=== PATIENT | female | born 1940 | race Caucasian/White ===

== ENCOUNTER 2019-07-07 08:10 | Outpatient (CLI) | payer MEDICARE, SELFPAY ==
[2019-07-07] MEDS: ZOLEDRONIC ACID 5 MG/100 ML 100 ML 300 MG IVPB (08:37)
== END 2019-07-07 08:11 | disposition home or self-care (01) ==
LOC: CHSTREATRM 08:13
PROVIDERS: PCP Internal Medicine; Visit Provider Internal Medicine
DX: M81.0 Age-related osteoporosis without current pathological fracture (principal)
CPT/HCPCS: 96365; J3489

== ENCOUNTER 2020-05-03 06:21 | Outpatient (CLI) | payer MEDICARE, SELFPAY ==
[2020-05-03 06:34] LABS: Add Urine Microscopic? YES; Appearance Urine Clear (Clear); Basophils Absolute Auto 0.03 K/mm3 (0.00-0.10); Basophils Percent Auto 0.5 % (0.0-1.0); Bilirubin Urine Negative (Negative); Blood Urine Negative (Negative); Color Urine Yellow (Yellow); Eosinophils Absolute Auto 0.08 K/mm3 (0.02-0.50); Eosinophils Percent Auto 1.4 % (1.0-6.0); Glucose Urine UA Negative (Negative); Hematocrit 40.9 % (35.0-42.0); Hemoglobin 13.3 g/dL (11.7-13.8); Immature Granulocyte Absolute 0.02 K/mm3 (0.00-0.00); Immature Granulocyte Percent A 0.4 % (0.0-0.0); Ketones Urine Trace (Negative); Leukocyte Esterase Ur Trace (Negative); Lymphocytes Absolute Auto 2.41 K/mm3 (1.10-4.50); Mean Corpuscular HGB Conc 32.5 g/dL (32.0-36.0); Mean Corpuscular Hemoglobin 32.1 pg (27.0-31.0); Mean Corpuscular Volume 98.8 fL (78.0-102.0); Mean Platelet Volume 9.9 fl (9.2-11.8); Monocytes Absolute Auto 0.44 K/mm3 (0.10-0.90); Monocytes Percent Auto 7.8 % (2.0-11.0); Neutrophils Absolute Auto 2.6 K/mm3 (1.7-7.2); Neutrophils Percent Auto 46.9 % (50.0-70.0); Nitrate Urine Negative (Negative); Platelet Count Result 197 K/mm3 (150-420); Protein Urine Negative (Negative); Red Blood Count 4.14 M/mm3 (4.20-5.40); Red Cell Distribution Width 12.6 % (11.6-14.4); Specific Grav Ur 1.025 (1.010-1.020); Urobilinogen Urine 0.2 mg/dL (0.2-1.0); White Blood Count 5.6 K/mm3 (4.8-10.8)
[2020-05-03 06:56] LABS: Bacteria Urine 1+ /hpf; Mucus Urine Moderate /lpf; RBC Urine 0-2 /hpf (0-2); Squamous Epithelial Cell Urine Few /hpf (Few)
[2020-05-03 07:47] LABS: Alanine Aminotransferase 19 U/L (14-59); Albumin Level 3.8 g/dL (3.4-5.0); Alkaline Phosphatase 56 U/L (46-116); Anion Gap 4 mmol/L (8-16); Aspartate Amino Transferase 15 U/L (15-37); Bilirubin,Total 0.3 mg/dL (0.00-1.00); Blood Urea Nitrogen 26 mg/dL (7-18); Calcium 9.6 mg/dL (8.5-10.1); Carbon Dioxide 34 mmol/L (21-32); Chloride 103 mmol/L (98-108); Cholesterol 200 mg/dL (0-200); Estimated Glomerular Filt Rate 52; Glucose 94 mg/dL (70-99); HDL Direct 100 mg/dL (40-60); LDL Cholesterol Calculated 88 mg/dL (<130); Osmolality Calculated 296 mOsm/kg (285-295); Potassium 3.8 mmol/L (3.5-5.1); Sodium 141 mmol/L (136-145); Thyroid Stimulating Hormone 1.63 uIU/mL (0.36-3.74); Total Protein 6.7 g/dL (6.4-8.2); Triglycerides 62 mg/dL (0-150)
== END 2020-05-03 06:22 | disposition home or self-care (01) ==
LOC: CHSLAB 06:25
PROVIDERS: PCP Internal Medicine; Visit Provider Internal Medicine
DX: E78.5 Hyperlipidemia, unspecified (principal); I10 Essential (primary) hypertension
CPT/HCPCS: 36415; 80053; 80061; 81001; 84443; 85025

== ENCOUNTER 2020-05-27 07:51 | Outpatient (CLI) | payer MEDICARE, SELFPAY ==
--- NOTE | ~2020-05-27 | MM_ITS ---
EXAMINATION: MM screening [facility] BI w em HISTORY: Screening TECHNIQUE: Craniocaudal and mediolateral oblique 3-D tomosynthesis images were obtained and synthetic 2-D images were generated. CAD analysis was submitted and interpreted. COMPARISON: Comparison to multiple prior studies sequentially, with oldest reviewed study dated 09/2012. BREAST PARENCHYMAL COMPOSITION: The breasts are heterogenously dense, which may obscure small masses. FINDINGS: Stable breast masses, previously characterized as benign by ultrasound. There is no evidenc e of suspicious mass, calcification, or architectural distortion to suggest malignancy in either [address]. There has been no suspicious interval change. IMPRESSION: 1. No mammographic evidence of malignancy. 2. Recommend routine screening mammography in one year. BI-RADS Category 2: Benign finding(s). Reviewed, dictated and finalized at location A. NTIFIC MANAGER
== END 2020-05-27 07:52 | disposition home or self-care (01) ==
LOC: CHSIMG 07:53
PROVIDERS: PCP Internal Medicine; Visit Provider Internal Medicine
DX: Z12.31 Encounter for screening mammogram for malignant neoplasm of breast (principal)
CPT/HCPCS: 77063; 77067

== ENCOUNTER → 2020-06-04 00:56 | Outpatient (CLI) | payer MEDICARE, SELFPAY ==
[2020-06-04 20:39] LABS: SARS-CoV-2 RNA PCR Negative
== END ==
PROVIDERS: PCP Internal Medicine; Visit Provider Internal Medicine Gastroenterology
DX: Z01.812 Encounter for preprocedural laboratory examination (principal); Z20.822 Contact with and (suspected) exposure to COVID-19
CPT/HCPCS: C9803; U0003; U0005

== ENCOUNTER 2020-06-08 00:20 | Day surgery (SDC) | payer MEDICARE, SELFPAY ==
[2020-05-19 10:24] VITALS: BMI 22.1
[2020-06-08 06:13] VITALS: BP 151/88; PULSE 92; RESP 18; TEMP 36.7; O2SAT 92
[2020-06-08] MEDS: LACTATED RINGERS 1,000 ML 150 ML IV CONT (06:32)
--- NOTE | 2020-06-08 06:46 | WPDANESEPPF ---
Anes - Initial Pre Proc Eval Procedure: Operation Date: 06/08/20 07:30 Proposed Procedures p Screening Colonoscopy - Davy Cuellar MD Date/Time: 06/08/20 06:46 Surgeon: Davy Cuellar MD Pre Op Diagnosis: Neoplasm Screening, Personal Hx Of Colon Polyps Patient Data Age: 79 Gender: F Height: 5 ft 7 in Weight: 63.2 kg Last Vital Signs Temp 36.7 C 06/08/20 06:13 Pulse 92 06/08/20 06:13 Resp 18 06/08/20 06:13 BP 151/88 H 06/08/20 06:13 Pulse Ox 92 06/08/20 06:13 Allergies Allergy/AdvReac Type Severity Reaction Status Date / Time No Known Allergies Allergy Verified 06/08/20 06:09 Home Medications Medication Instructions Recorded Confirmed Type amlodipine 2.5 mg PO DAILY 05/19/20 06/08/20 History lisinopril-hydrochlorothiazide 1 tablet PO DAILY 05/19/20 06/08/20 History simvastatin 20 mg PO DAILY 05/19/20 06/08/20 History Patient hx anesthesia problems: none Family hx anesthesia problems: none PMFSH Past Medical History Medical History (Updated 06/08/20 @ 06:47 by Dane Mehta MD) HTN (hypertension) Hyperlipidemia Surgical History Surgical History (Updated 06/08/20 @ 06:48 by Dane Mehta MD) History of cholecystectomy History of resection of liver Social History Social History Smoking status: Never smoker Alcohol intake: never Substance use: never Substance use type: does not use Living arrangements: alone Spiritual care concerns: No Anes - Eval Final PreProcedure Day of Procedure 06/08/20 06:46 Patient weight: normal Heart: regular rate and rhythm Lungs: clear to auscultation Airway: Mallampati scale class II Neurological: alert and oriented Last oral intake: >/= 8 hours ASA classification: II Emergent: no Anesthetic plan: proceed Anesthesia type and monitoring: general GIVS and standard monitoring Informed Consent: The patient's anesthetic plan and its attendant risks and benefits were discussed with the patient/family/POA. Questions were solicited and answers provided to the satisfaction of the patient/family/POA.
--- NOTE | 2020-06-08 07:49 | PM.HPGS ---
History of Present Illness History of Present Illness Consent: Risks, benefits, and alternatives have been discussed and questions answered. Patient agrees to proceed with procedure. Chief complaint: Neoplasm Screening, Personal Hx Of Colon Polyps Narrative: Viola Bazan is a 79 year old female here for screening colonoscopy, last one about 12 years ago. Review of Systems Constitutional: Constitutional: Denies headache(s) and Denies weakness Eyes: Eyes: Denies blurry vision ENT: Reports Normal hearing present, Denies headache(s) and Denies neck pain Cardiovascular: Cardiovascular: Denies chest pain and Denies dyspnea Respiratory: Respiratory: Denies dyspnea Gastrointestinal: Gastrointestinal: Reports no additional gastrointestinal complaints Genitourinary: Genitourinary: Denies dysuria Musculoskeletal: Musculoskeletal: Denies neck pain Integumentary/Breasts: Skin/Breast: Denies dry skin Neurologic: Reports Normal hearing present, Denies headache(s) and Denies weakness Psychiatric: Psychiatric: Denies anxiety Endocrine: Endocrine: Denies change in body appearance Hematologic/Lymphatic: Hematologic/Lymphatic: Denies easy bleeding Allergic/Immunologic: Allergic/Immunologic: Denies urticaria PMFSH Past Medical History Medical History (Updated 06/08/20 @ 07:50 by Davy Cuellar MD) Colon cancer screening HTN (hypertension) Hyperlipidemia Surgical History Surgical History (Updated 06/08/20 @ 06:48 by Dane Mehta MD) History of cholecystectomy History of resection of liver Social History Social History Smoking status: Never smoker Alcohol intake: never Substance use: never Substance use type: does not use Living arrangements: alone Spiritual care concerns: No Meds Home Medications and Allergies Home Medications Medication Instructions Recorded Confirmed Type amlodipine 2.5 mg PO DAILY 05/19/20 06/08/20 History lisinopril-hydrochlorothiazide 1 tablet PO DAILY 05/19/20 06/08/20 History simvastatin 20 mg PO DAILY 05/19/20 06/08/20 History Allergies Allergy/AdvReac Type Severity Reaction Status Date / Time No Known Allergies Allergy Verified 06/08/20 06:09 Vital Signs Vital Signs - 24 hr 06/08/20 06:13 Temperature 98.0 F Pulse Rate 92 Respiratory Rate 18 Blood Pressure 151/88 H Pulse Oximetry 92 Exam Const: General: comfortable and no acute distress HENMT: General nose exam: Normal nares present Eyes: General: appearance normal, both eyes and all related structures Neck: Neck: no JVD Resp: Auscultation: clear to auscultation bilaterally Cardio: Rate: regular rate Rhythm: regular rhythm GI: Inspection: non-distended GI Palp: Yes Soft to palpation Skin: General skin exam: normal color Neuro: General: gait normal Speech: normal speech Extrem: General: normal to inspection Psych: Mental Status: mental status grossly normal Assessment and Plan Assessment and plan (1) Colon cancer screening: Code(s): Z12.11 - Encounter for screening for malignant neoplasm of colon Status: Acute Assessment and Plan: will proceed with colonoscopy
[2020-06-08 08:23] VITALS: BP 93/45; PULSE 86; RESP 23; O2SAT 96
[2020-06-08 08:33] VITALS: BP 98/62; PULSE 78; RESP 21; O2SAT 98
[2020-06-08 08:43] VITALS: BP 119/72; PULSE 79; RESP 23; O2SAT 96
== END 2020-06-08 08:55 | disposition home or self-care (01) ==
PROVIDERS: PCP Internal Medicine; Visit Provider Internal Medicine Gastroenterology
PROC: 0DJD8ZZ Inspection of Lower Intestinal Tract, Via Natural or Artificial Opening Endoscopic (ICD-10-PCS; CPT 45378; principal; 2020-06-08 07:30)
DX: Z12.11 Encounter for screening for malignant neoplasm of colon (principal); K57.30 Diverticulosis of large intestine without perforation or abscess without bleeding; K64.8 Other hemorrhoids; I10 Essential (primary) hypertension; E78.5 Hyperlipidemia, unspecified
CPT/HCPCS: G0121; C9803; J2704; J7120; U0003; U0005

== ENCOUNTER 2020-07-07 08:16 | Outpatient (CLI) | payer MEDICARE, SELFPAY ==
[2020-07-07] MEDS: ZOLEDRONIC ACID 5 MG/100 ML 100 ML 400 MG IVPB (08:38)
--- NOTE | 2020-07-07 09:34 | PC.NURSE ---
Patient tolerated yearly IV Reclast infusion. Education on medication reviewed. No concerns voiced. Safe exit of hospital.
== END 2020-07-07 08:17 | disposition home or self-care (01) ==
PROVIDERS: PCP Internal Medicine; Visit Provider Internal Medicine
DX: M81.0 Age-related osteoporosis without current pathological fracture (principal)
CPT/HCPCS: 96365; J3489

== ENCOUNTER 2020-10-27 08:10 | Outpatient (CLI) | payer MEDICARE, SELFPAY ==
[2020-10-27 08:21] LABS: Basophils Absolute Auto 0.03 K/mm3 (0.00-0.10); Basophils Percent Auto 0.5 % (0.0-1.0); Eosinophils Absolute Auto 0.07 K/mm3 (0.02-0.50); Eosinophils Percent Auto 1.2 % (1.0-6.0); Hematocrit 45.5 % (35.0-42.0); Hemoglobin 14.9 g/dL (11.7-13.8); Immature Granulocyte Absolute 0.01 K/mm3 (0.00-0.00); Immature Granulocyte Percent A 0.2 % (0.0-0.0); Lymphocytes Absolute Auto 3.06 K/mm3 (1.10-4.50); Lymphocytes Percent Auto 50.9 % (18.0-42.0); Mean Corpuscular HGB Conc 32.7 g/dL (32.0-36.0); Mean Corpuscular Hemoglobin 31.6 pg (27.0-31.0); Mean Corpuscular Volume 96.4 fL (78.0-102.0); Mean Platelet Volume 9.8 fl (9.2-11.8); Monocytes Absolute Auto 0.41 K/mm3 (0.10-0.90); Monocytes Percent Auto 6.8 % (2.0-11.0); Neutrophils Absolute Auto 2.4 K/mm3 (1.7-7.2); Neutrophils Percent Auto 40.4 % (50.0-70.0); Platelet Count Result 204 K/mm3 (150-420); Red Blood Count 4.72 M/mm3 (4.20-5.40); Red Cell Distribution Width 12.5 % (11.6-14.4)
[2020-10-27 09:11] LABS: Alanine Aminotransferase 26 U/L (14-59); Albumin Level 3.8 g/dL (3.4-5.0); Alkaline Phosphatase 62 U/L (46-116); Anion Gap 8 mmol/L (8-16); Aspartate Amino Transferase 17 U/L (15-37); Bilirubin,Total 0.6 mg/dL (0.00-1.00); Blood Urea Nitrogen 20 mg/dL (7-18); Carbon Dioxide 32 mmol/L (21-32); Chloride 105 mmol/L (98-108); Cholesterol 183 mg/dL (0-200); Estimated Glomerular Filt Rate > 60; Glucose 103 mg/dL (70-99); HDL Direct 88 mg/dL (40-60); Osmolality Calculated 302 mOsm/kg (285-295); Potassium 4.1 mmol/L (3.5-5.1); Sodium 145 mmol/L (136-145); Total Protein 6.6 g/dL (6.4-8.2)
[2020-10-27 10:14] LABS: LDL Cholesterol Calculated 82 mg/dL (<130); Triglycerides 65 mg/dL (0-150)
== END 2020-10-27 08:11 | disposition home or self-care (01) ==
LOC: CHSLAB 08:12
PROVIDERS: PCP Internal Medicine; Visit Provider Internal Medicine
DX: E78.5 Hyperlipidemia, unspecified (principal); I10 Essential (primary) hypertension
CPT/HCPCS: 36415; 80053; 80061; 85025

== ENCOUNTER 2021-05-11 08:11 | Outpatient (CLI) | payer MEDICARE, SELFPAY ==
[2021-05-11 09:11] LABS: Alanine Aminotransferase 22 U/L (14-59); Albumin Level 3.6 g/dL (3.4-5.0); Alkaline Phosphatase 54 U/L (46-116); Anion Gap 6 mmol/L (8-16); Aspartate Amino Transferase 14 U/L (15-37); Bilirubin,Total 0.5 mg/dL (0.00-1.00); Blood Urea Nitrogen 23 mg/dL (7-18); Carbon Dioxide 34 mmol/L (21-32); Chloride 105 mmol/L (98-108); Cholesterol 184 mg/dL (0-200); Estimated Glomerular Filt Rate > 60; Glucose 94 mg/dL (70-99); HDL Direct 95 mg/dL (40-60); LDL Cholesterol Calculated 79 mg/dL (<130); Osmolality Calculated 303 mOsm/kg (285-295); Potassium 3.9 mmol/L (3.5-5.1); Sodium 145 mmol/L (136-145); Thyroid Stimulating Hormone 1.64 uIU/mL (0.36-3.74); Total Protein 6.4 g/dL (6.4-8.2); Triglycerides 52 mg/dL (0-150)
== END 2021-05-11 08:12 | disposition home or self-care (01) ==
LOC: CHSLAB 08:13
PROVIDERS: PCP Internal Medicine; Visit Provider Internal Medicine
DX: E78.5 Hyperlipidemia, unspecified (principal); I10 Essential (primary) hypertension
CPT/HCPCS: 36415; 80053; 80061; 84443

== ENCOUNTER 2021-05-30 13:03 | Outpatient (CLI) | payer MEDICARE, SELFPAY ==
--- NOTE | ~2021-05-30 | MM_ITS ---
EXAMINATION: MM screening [facility] BI w em HISTORY: Screening TECHNIQUE: Craniocaudal and mediolateral oblique 3-D tomosynthesis images were obtained and synthetic 2-D images were generated. CAD analysis was submitted and interpreted. COMPARISON: Comparison to multiple prior studies sequentially, with oldest reviewed study dated 09/2012. BREAST PARENCHYMAL COMPOSITION: The breasts are heterogenously dense, which may obscure small masses FINDINGS: The right breast is stable without evidence for malignancy. There is architectural distorti on in the upper central aspect of the left breast. There are benign calcifications bilaterally. IMPRESSION: 1. Developing architectural distortion of the left breast. 2. Additional mammographic views and possible breast ultrasound are recommended. BI-RADS Category 0: Incomplete: Needs additional imaging evaluation. Reviewed, dictated and finalized at location A. KLAYER IMPRESSION: 1. Developing architectural distortion of the left breast. 2. Additional mammographic views and possible breast ultrasound are recommended . BI-RADS Category 0: Incomplete: Needs additional imaging evaluation.
== END 2021-05-30 13:04 | disposition home or self-care (01) ==
LOC: CHSIMG 13:04
PROVIDERS: PCP Internal Medicine; Visit Provider Internal Medicine
DX: Z12.31 Encounter for screening mammogram for malignant neoplasm of breast (principal)
CPT/HCPCS: 77063; 77067

== ENCOUNTER 2021-06-05 09:42 | Outpatient (CLI) | payer MEDICARE, SELFPAY ==
--- NOTE | ~2021-06-05 | MMUS_ITS ---
EXAMINATION: MM diagnostic [facility] LT w em, US breast LT complete HISTORY: The breasts are heterogenously dense, which may obscure small masses TECHNIQUE: Additional 3-D tomosynthesis images of the left breast were performed and synthetic 2-D im ages were generated. CAD analysis was submitted and interpreted. High resolution Limited left breast ultrasound was performed. COMPARISON: Comparison to multiple prior studies sequentially, with oldest reviewed study dated 12/07. BREAST PARENCHYMAL COMPOSITION: Breast composed of scattered areas of fibroglandular density FINDINGS: MAMMOGRAPHIC FINDINGS: There is a persistent focal asymmetry centrally in the left breast on CC view. No suspicious calcific ations or architectural distortion. ULTRASOUND: Limited left breast ultrasound: There are multiple cysts of the left breast, largest at 12:00 measuri ng 9 x 7 x 4 mm, likely corresponding to the mammographic finding. No suspicious masses to suggest ma lignancy. IMPRESSION: 1. No evidence for malignancy in the left breast. Benign findings. 2. Routine yearly screening mammogram and regular clinical breast examination are recommended. BI-RADS Category 2: Benign finding(s). Reviewed, dictated and finalized at location A. ATTENDANT IMPRESSION: 1. No evidence for malignancy in the left breast. Benign findings. 2. Routine yearly screening mammogram and regular clinical breast examination a re recommended. BI-RADS Category 2: Benign finding(s).
== END 2021-06-05 09:43 | disposition home or self-care (01) ==
LOC: CHSIMG 09:43
PROVIDERS: PCP Internal Medicine; Visit Provider Internal Medicine
DX: R92.8 Other abnormal and inconclusive findings on diagnostic imaging of breast (principal)
CPT/HCPCS: 76641; 77061; 77065; G0279

== ENCOUNTER 2021-07-11 08:02 | Outpatient (CLI) | payer MEDICARE, SELFPAY ==
[2021-07-11] MEDS: ZOLEDRONIC ACID 5 MG/100 ML 100 ML 400 MG IVPB (08:25)
[2021-07-11 08:27] VITALS: BP 130/70; PULSE 72; RESP 14; TEMP 36.7; O2SAT 97; BMI 21.9
--- NOTE | 2021-07-11 08:45 | PC.NURSE ---
Patient here for yearly IV Reclast. Education on medication given. No concerns. IV Reclast administered. SEE MAR. Tolerated well. Safe exit of hospital.
== END 2021-07-11 08:03 | disposition home or self-care (01) ==
LOC: CHSTREATRM 08:04
PROVIDERS: PCP Internal Medicine; Visit Provider Internal Medicine
DX: M81.0 Age-related osteoporosis without current pathological fracture (principal)
CPT/HCPCS: 96374; J3489

== ENCOUNTER 2021-11-16 08:04 | Outpatient (CLI) | payer MEDICARE, SELFPAY ==
[2021-11-16 08:16] LABS: Add Urine Microscopic? NO; Appearance Urine Clear (Clear); Basophils Absolute Auto 0.03 K/mm3 (0.00-0.10); Basophils Percent Auto 0.6 % (0.0-1.0); Bilirubin Urine Negative (Negative); Blood Urine Negative (Negative); Color Urine Yellow (Yellow); Eosinophils Absolute Auto 0.07 K/mm3 (0.02-0.50); Eosinophils Percent Auto 1.3 % (1.0-6.0); Glucose Urine UA Negative (Negative); Hematocrit 43.2 % (35.0-42.0); Hemoglobin 14.2 g/dL (11.7-13.8); Immature Granulocyte Absolute 0.01 K/mm3 (0.00-0.00); Immature Granulocyte Percent A 0.2 % (0.0-0.0); Ketones Urine Negative (Negative); Leukocyte Esterase Ur Negative (Negative); Lymphocytes Absolute Auto 2.53 K/mm3 (1.10-4.50); Lymphocytes Percent Auto 48.7 % (18.0-42.0); Mean Corpuscular HGB Conc 32.9 g/dL (32.0-36.0); Mean Corpuscular Hemoglobin 32.1 pg (27.0-31.0); Mean Corpuscular Volume 97.5 fL (78.0-102.0); Mean Platelet Volume 10.2 fl (9.2-11.8); Monocytes Absolute Auto 0.45 K/mm3 (0.10-0.90); Monocytes Percent Auto 8.7 % (2.0-11.0); Neutrophils Absolute Auto 2.1 K/mm3 (1.7-7.2); Neutrophils Percent Auto 40.5 % (50.0-70.0); Nitrate Urine Negative (Negative); Platelet Count Result 194 K/mm3 (150-420); Protein Urine Negative (Negative); Red Blood Count 4.43 M/mm3 (4.20-5.40); Red Cell Distribution Width 12.6 % (11.6-14.4); Specific Grav Ur 1.015 (1.010-1.020); Urobilinogen Urine 0.2 mg/dL (0.2-1.0); White Blood Count 5.2 K/mm3 (4.8-10.8); pH Urine 6.5 (5.0-8.0)
[2021-11-16 08:45] LABS: Alanine Aminotransferase 21 U/L (14-59); Albumin Level 3.7 g/dL (3.4-5.0); Alkaline Phosphatase 56 U/L (46-116); Anion Gap 5 mmol/L (8-16); Aspartate Amino Transferase 14 U/L (15-37); Bilirubin,Total 0.5 mg/dL (0.00-1.00); Blood Urea Nitrogen 15 mg/dL (7-18); Calcium 9.1 mg/dL (8.5-10.1); Carbon Dioxide 32 mmol/L (21-32); Chloride 105 mmol/L (98-108); Cholesterol 166 mg/dL (0-200); Estimated Glomerular Filt Rate 59; Glucose 95 mg/dL (70-99); HDL Direct 85 mg/dL (40-60); LDL Cholesterol Calculated 68 mg/dL (<130); Osmolality Calculated 294 mOsm/kg (285-295); Potassium 4.1 mmol/L (3.5-5.1); Sodium 142 mmol/L (136-145); Total Protein 6.1 g/dL (6.4-8.2); Triglycerides 66 mg/dL (0-150)
== END 2021-11-16 08:05 | disposition home or self-care (01) ==
LOC: CHSLAB 08:05
PROVIDERS: PCP Internal Medicine; Visit Provider Internal Medicine
DX: E78.5 Hyperlipidemia, unspecified (principal); I10 Essential (primary) hypertension
CPT/HCPCS: 36415; 80053; 80061; 81003; 85025

== ENCOUNTER 2021-11-23 08:43 | Outpatient (CLI) | payer MEDICARE, SELFPAY ==
--- NOTE | ~2021-11-23 | XR_ITS ---
EXAMINATION: XR chest 2V DATE: 11/23/2021 09:48 INDICATION: COPD, shortness of breath TECHNIQUE: PA and lateral views of the chest are obtained. COMPARISON: 05/28/2014 FINDINGS: There is a 1.5 cm nodule of the right upper lobe. The lungs are hyperinflated free of acute opacities. No pleural effusion or pneumothorax. The cardiomediastinal silhouette is normal. There is moderate thoracic spondylosis. Surgical clips are noted in the upper abdomen. IMPRESSION: 1. Right upper lobe nodule which could reflect primary bronchogenic carcinoma. Further evaluation wit h CT is recommended. Reviewed, dictated and finalized at location B. IMPRESSION: 1. Right upper lobe nodule which could reflect primary bronchogenic carcinoma. Further evaluation with CT is recommended.
== END 2021-11-23 08:44 | disposition home or self-care (01) ==
LOC: CHSCARD 08:44
PROVIDERS: PCP Internal Medicine; Visit Provider Internal Medicine
DX: J44.9 Chronic obstructive pulmonary disease, unspecified (principal); R06.00 Dyspnea, unspecified
CPT/HCPCS: 71046; 94060; 94726; 94729

== ENCOUNTER 2021-12-14 07:05 | Outpatient (CLI) | payer MEDICARE, SELFPAY ==
--- NOTE | ~2021-12-14 | CT_ITS ---
EXAMINATION: CT diagnostic chest w con DATE: 12/14/2021 07:46 INDICATION: Right upper lobe nodule TECHNIQUE: Computed tomography (CT) of the chest was performed without intravenous contrast. The dose -length product was 144.96 mGy-cm. Automated exposure control and iterative reconstruction technique were employed. COMPARISON: Chest x-ray dated 11/23/2021 FINDINGS: There is a low-density 1.4 x 1.1 cm nodule in the right upper lobe, image 63. This nodule m easures -1 Hounsfield units. Mild atherosclerosis of the aorta. No thoracic lymphadenopathy. Heart size normal. No significant ple ural or pericardial effusion. Upper abdomen is unremarkable. There are few scattered nodules bilatera lly measuring 3 mm or less. There is a cluster of nodules in the left lower lobe with a linear config uration making it difficult to evaluate for size. There are right lower lobe nodules measuring 10 and 9 mm respectively. These nodules are circumscribed and low density similar to the right upper lobe n odule. No pneumothorax. No endobronchial lesions. IMPRESSION: 1. Multiple bilateral pulmonary nodules, largest in the right upper lobe measuring 1.4 cm. Recommend follow-up with pet/CT examination or follow-up CT chest in 3 months Reviewed, dictated and finalized at location B. IMPRESSION: 1. Multiple bilateral pulmonary nodules, largest in the right upper lobe measur ing 1.4 cm. Recommend follow-up with pet/CT examination or follow-up CT chest i n 3 months
== END 2021-12-14 07:06 | disposition home or self-care (01) ==
LOC: CHSIMG 07:06
PROVIDERS: PCP Internal Medicine; Visit Provider Internal Medicine
DX: R91.1 Solitary pulmonary nodule (principal)
CPT/HCPCS: 71260; Q9967

== ENCOUNTER 2022-01-17 04:20 | Outpatient (CLI) | payer MEDICARE, SELFPAY ==
[2022-01-11 11:12] VITALS: BMI 21.9
--- NOTE | 2022-01-11 11:13 | PC.NURSE ---
Pre Radiology instructions Report to the Outpatient Waiting Room, entrance under the green pavilion located off [facility], at time _0900_ on date _[id number]_. Procedure Time: _1100_. YOU MAY BE MONITORED AT HOSPITAL FOR UP TO 4 HOURS AFTER YOUR PROCEDURE. One visitor will be allowed to accompany the patient into the hospital. The visitor will be instructed to remain with patient at all times or leave the building due to restrictions. We will allow the visitor to come back to the postoperative area when patient is ready. NO children visitors allowed at this time. You and your visitor will be asked to self-screen and do not enter if you have any COVID symptoms. A mask is required within the hospital. Patients are to have no food or drink 6 hours prior to procedure time Driving will be restricted after the procedure, you must have a person to drive you home. Labs will be drawn in preop area and once reviewed, you will be taken to radiology area for procedure. When the procedure is completed, you will be taken to outpatient where you will be monitored for several hours. You may have one visitor in this area. Other than holding anti-coagulants, patient may take other medication(s) as scheduled. Prior to your appointment date patients are instructed to hold anti-coagulants after discussing with ordering provider to stop. If unable to discontinue anti-coagulants please notify radiologist. No aspirin or warfarin (Coumadin) for 7 days prior to the procedure. No clopidogrel (Plavix), ticagrelor (Brilinta), prasugrel (Effient) or dabigatran (Pradaxa) for 5 days prior to the procedure. No rivaroxaban (Xarelto), apixaban (Eliquis), dipyridamole (Aggrenox or Persantine) or cilostazol (Pletal) for 2 days prior to the procedure. Medications to discontinue per physician: Aspirin Date to take last dose: __stopped on [id number] Please leave all valuables, including medications, at home the day of procedure. The hospital will not accept responsibility for valuables. Wear comfortable, loose fitting clothing. Follow any additional instructions given to you from ordering provider. Telephone instructions given to _Patient____and asked if any additional questions and then verbalized understanding. Patient advised to call scheduling provider office or registration scheduling [phone] if any additional questions.
[2022-01-17] VITALS (8 sets, daily range): BP systolic 111–148; BP diastolic 58–75; PULSE 58–73; RESP 15–20; TEMP 36.6; O2SAT 95–100
--- NOTE | ~2022-01-17 | XR_ITS ---
EXAMINATION: XR chest 1V portable DATE: 01/17/2022 12:56 INDICATION: Right lung nodule status post percutaneous biopsy. TECHNIQUE: A single frontal view of the chest was obtained. COMPARISON: Chest single view at 11:56 AM FINDINGS: There are nodules in right upper lobe and right lower lobe. A calcified right lung nodule i s consistent with old granulomatous disease. There is mild atelectasis in right lower lung zone. No p leural effusion or pneumothorax. Cardiomegaly is noted. There are surgical clips in the abdomen. IMPRESSION: 1. Right lung nodules suspicious for metastatic disease. 2. Cardiomegaly. Reviewed, dictated and finalized at location A.
--- NOTE | ~2022-01-17 | XR_ITS ---
EXAMINATION: XR chest 1V DATE: 01/17/2022 11:58 INDICATION: Right lung nodule status post percutaneous biopsy. TECHNIQUE: A single frontal view of the chest was obtained. COMPARISON: Chest 2 views 11/15/2021, chest CT 12/14/2021 FINDINGS: There are nodules in right upper lobe and right lower lobe. A calcified right lung nodule i s consistent with old granulomatous disease. No pleural effusion or pneumothorax. Cardiomegaly is not ed. There are surgical clips in the abdomen. IMPRESSION: 1. Right lung nodules suspicious for metastatic disease. 2. Cardiomegaly. Reviewed, dictated and finalized at location A.
--- NOTE | ~2022-01-17 | XR_ITS ---
EXAMINATION: XR chest 1V portable DATE: 01/17/2022 14:53 INDICATION: Right lung nodule status post percutaneous biopsy. TECHNIQUE: A single frontal view of the chest was obtained. COMPARISON: Chest single view at 12:53 PM FINDINGS: There are nodules in right upper lobe and right lower lobe. Calcified bilateral lung nodule s are consistent with old granulomatous disease. No pleural effusion or pneumothorax. Cardiomegaly is noted. IMPRESSION: 1. Right lung nodules suspicious for metastatic disease. 2. Cardiomegaly. Reviewed, dictated and finalized at location A.
--- NOTE | ~2022-01-17 | CT_ITS ---
EXAMINATION: CT biopsy lung w/imaging DATE: 01/17/2022 11:55 INDICATION: Right lung nodule. TECHNIQUE: The procedure including the risks, benefits, and alternatives and possibility of chest tub e placement were discussed with the patient. Risks discussed included infection, hemorrhage, approxim ately 1/3 risk of pneumothorax, approximately 1/10 risk of pneumothorax severe enough to warrant ches t tube placement, and rarely . The patient understood the risks and agreed to proceed. The patie nt was placed supine. The skin overlying the right chest was prepped and draped in sterile fashion. Anesthetic was administered with 1% lidocaine subcutaneously. A 19 gauge outer needle was advanced under CT guidance to the lesion of interest. A 20 gauge core biopsy needle was then used to obtain 3 core biopsy specimens. The needle was removed and the entry site was cleaned and dressed. The mA was adjusted according to patient size. Iterative reconstruction technique was employed. The dose-length product was 146.31 mGy-cm. There were no immediate complications. FINDINGS: CT images demonstrate the outer needle tip in a 13 mm nodule in right upper lobe. IMPRESSION: 1. CT-guided core needle biopsy of of a 13 mm nodule in right lung upper lobe. Reviewed, dictated and finalized at location A.
[2022-01-17] MEDS: SODIUM CHLORIDE 0.9% IV 1,000 ML 30 ML IV CONT (09:40)
[2022-01-17 10:07] LABS: Platelet Count Result 216 k/mm3 (150-375)
[2022-01-17 10:17] LABS: Prothrombin Time 12.4 Seconds (11.1-14.7)
== END 2022-01-17 15:32 | disposition home or self-care (01) ==
PROVIDERS: PCP Internal Medicine; Referring Provider Internal Medicine Pulmonary Disease; Visit Provider Radiology Diagnostic Radiology
PROC: BB24ZZZ Computerized Tomography (CT Scan) of Bilateral Lungs (ICD-10-PCS; CPT 32408; principal; 2022-01-17 11:00)
DX: R91.8 Other nonspecific abnormal finding of lung field (principal); I51.7 Cardiomegaly
CPT/HCPCS: 32408; 36415; 71045; 85049; 85610; 88305; J7030

== ENCOUNTER 2022-03-08 07:29 | Outpatient (CLI) | payer MEDICARE, SELFPAY ==
--- NOTE | ~2022-03-08 | PE_ITS ---
EXAMINATION: PET skull to mid thigh DATE: 03/08/2022 09:34 INDICATION: Lung nodule TECHNIQUE: Blood glucose level was 90 mg/dL. 10.681 mCi of 18-fluorodeoxyglucose (18-FDG) was adminis tered i.v. Low dose computed tomography (CT) images were acquired from the base of the brain to the p roximal thighs for attenuation correction and anatomic localization. Positron emission tomography (PE T) images were acquired in the same distribution beginning 55 minutes after injection. Images includi ng fused PET/CT images were reconstructed in axial, coronal, and sagittal planes. Automated exposure control technique was employed. The dose-length product was 349.81mGy-cm. COMPARISON: Chest CT dated 12/14/2021 FINDINGS: Head/neck: There is symmetric increased activity in the oral cavity, palatine tonsils, parotid glands, submandi bular glands, laryngeal muscles and ocular muscles without CT correlate, likely physiologic. No patho logically enlarged cervical lymphadenopathy or suspicious foci of increased FDG uptake in the visuali zed head or neck. Chest: No FDG uptake associated with the previously biopsied 1.6 x 1.0 cm right upper lobe nodule which demo nstrated benign pathology consistent with lung alveolar tissue, negative for diagnostic abnormalitie s. Bronchial wall tissue with moderate chronic inflammation. Negative for malignancy. There is also no abnormal FDG uptake associated with several subcentimeter nodules along a band of discoid atelecta sis in the right middle lobe associated with additional small linear bands of atelectasis in the left lower lobe and lingula. Cardiomegaly. No pericardial or pleural effusion. Thoracic aorta is normal i n caliber. Mild FDG uptake with maximal SUV of 2.0 associated with a somewhat ill-defined linear band of soft tissue density in the deep lateral right breast which does not appear to be changed on CT wh en compared with earlier chest CT dated 09/07/2016. No pathologically enlarged for abnormal FDG avid t horacic lymph nodes.. Abdomen/pelvis/proximal thighs: Physiologic renal accumulation and excretion of FDG activity in the kidneys, bladder and along portio ns of ureters. There is mild left hydronephrosis as well as mild dilation of the right extrarenal pel vis. Cholecystectomy clips at the gallbladder fossa and postoperative change of prior resection of th e left hepatic lobe. Normal heterogeneous pattern of mild FDG uptake throughout the liver with no frantz rologic correlate or dominant FDG avid lesion. There are additional surgical clips situated between t he hilum of the normal spleen, the greater curvature of the stomach and the tail of the normal pancre as. Bilateral adrenal glands are normal. No evident FDG uptake associated with a 6.8 x 5.4 cm simple appearing left adnexal cyst. The uterus is not identified and has likely been surgically resected. Mi ld colonic diverticulosis without adjacent inflammatory change to suggest diverticulitis. Marked FDG uptake along the proximal colon with mild to moderate uptake scattered throughout the remainder of th e bowels, all without radiologic correlate, also likely physiologic. No other abnormal foci of increa sed FDG uptake or pathologically enlarged lymphadenopathy in the abdomen, pelvis or proximal thighs. Musculoskeletal: Severe cervical, thoracic and lumbar spondylosis. There is increased FDG uptake associated with sever e facet osteoarthritis on the left at C3-C4 and on the right at L4-L5. No suspicious lytic, blastic o r FDG avid bone lesions. Likely physiologic synovial uptake about the bilateral glenohumeral joints. 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 IMPRESSION: 1. No abnormal uptake associated with a 1.6 x 1.0 cm right upper lobe nodule with recent benign biops y. No other suspicious lung lesions identified. 2. Small focus of mild FD
[2022-03-08 07:56] LABS: Glucose Point of Care 90 mg/dl (65-105)
== END 2022-03-08 07:30 | disposition home or self-care (01) ==
PROVIDERS: PCP Internal Medicine; Visit Provider Internal Medicine Pulmonary Disease
DX: R91.8 Other nonspecific abnormal finding of lung field (principal)
CPT/HCPCS: 78815; A9552

== ENCOUNTER 2022-06-07 07:13 | Outpatient (CLI) | payer MEDICARE, SELFPAY ==
--- NOTE | ~2022-06-07 | MM_ITS ---
EXAMINATION: MM screening [facility] BI w em HISTORY: Screening mammogram TECHNIQUE: Craniocaudal and mediolateral oblique 3-D tomosynthesis images were obtained and synthetic 2-D images were generated. CAD analysis was submitted and interpreted. COMPARISON: June 05, 2021 diagnostic left mammogram and complete left breast ultrasound examinatio n May 30, 2021, May 27, 2020 bilateral screening mammogram examinations BREAST PARENCHYMAL COMPOSITION: The breasts are heterogeneously dense, which may obscure small masses . FINDINGS: There is no evidence of suspicious mass, calcification, or architectural distortion to sugg est malignancy in either breast. There has been no suspicious interval change. IMPRESSION: 1. No mammographic evidence of malignancy. 2. Recommend routine screening mammography in one year. BI-RADS Category 1: Negative Reviewed, dictated and finalized at location A. RVISOR INSTRUMENT MAINTENANCE
[2022-06-07 07:42] LABS: Basophils Absolute Auto 0.04 K/mm3 (0.00-0.10); Basophils Percent Auto 0.7 % (0.0-1.0); Eosinophils Percent Auto 1.7 % (1.0-6.0); Hematocrit 43.5 % (35.0-42.0); Hemoglobin 14.1 g/dL (11.7-13.8); Immature Granulocyte Absolute 0.01 K/mm3 (0.00-0.00); Immature Granulocyte Percent A 0.2 % (0.0-0.0); Lymphocytes Absolute Auto 2.85 K/mm3 (1.10-4.50); Lymphocytes Percent Auto 49.7 % (18.0-42.0); Mean Corpuscular HGB Conc 32.4 g/dL (32.0-36.0); Mean Corpuscular Hemoglobin 31.5 pg (27.0-31.0); Mean Corpuscular Volume 97.3 fL (78.0-102.0); Mean Platelet Volume 10.1 fl (9.2-11.8); Monocytes Percent Auto 8.7 % (2.0-11.0); Neutrophils Absolute Auto 2.2 K/mm3 (1.7-7.2); Platelet Count Result 227 K/mm3 (150-420); Red Blood Count 4.47 M/mm3 (4.20-5.40); Red Cell Distribution Width 13.1 % (11.6-14.4); White Blood Count 5.7 K/mm3 (4.8-10.8)
[2022-06-07 08:38] LABS: Alanine Aminotransferase 20 U/L (14-59); Albumin Level 3.8 g/dL (3.4-5.0); Alkaline Phosphatase 64 U/L (46-116); Anion Gap 7 mmol/L (8-16); Aspartate Amino Transferase 16 U/L (15-37); Bilirubin,Total 0.6 mg/dL (0.00-1.00); Blood Urea Nitrogen 18 mg/dL (7-18); Calcium 9.2 mg/dL (8.5-10.1); Carbon Dioxide 33 mmol/L (21-32); Chloride 104 mmol/L (98-108); Cholesterol 185 mg/dL (0-200); Estimated Glomerular Filt Rate > 60; Glucose 102 mg/dL (70-99); HDL Direct 96 mg/dL (40-60); LDL Cholesterol Calculated 79 mg/dL (<130); Osmolality Calculated 299 mOsm/kg (285-295); Potassium 3.8 mmol/L (3.5-5.1); Sodium 144 mmol/L (136-145); Total Protein 6.5 g/dL (6.4-8.2); Triglycerides 48 mg/dL (0-150)
== END 2022-06-07 07:14 | disposition home or self-care (01) ==
LOC: CHSLAB 07:14
PROVIDERS: PCP Internal Medicine; Visit Provider Internal Medicine
DX: Z12.31 Encounter for screening mammogram for malignant neoplasm of breast (principal); I10 Essential (primary) hypertension; E78.5 Hyperlipidemia, unspecified
CPT/HCPCS: 36415; 77063; 77067; 80053; 80061; 85025

== ENCOUNTER 2022-07-19 08:15 | Outpatient (CLI) | payer MEDICARE, SELFPAY ==
[2022-07-19 08:23] VITALS: BMI 21.5
[2022-07-19 08:30] VITALS: BP 150/70; PULSE 72; RESP 14; TEMP 36.6; O2SAT 98
[2022-07-19] MEDS: ZOLEDRONIC ACID 5 MG/100 ML 100 ML 400 MG IVPB (08:35)
--- NOTE | 2022-07-19 09:04 | PC.NURSE ---
Patient here for yearly IV Reclast infusion. Reports does very well with them. Education given. No concerns voiced. IV Venofer administered. SEE MAR. Tolerated well. Safe exit of hospital.
== END 2022-07-19 08:16 | disposition home or self-care (01) ==
PROVIDERS: PCP Internal Medicine; Visit Provider Internal Medicine
DX: M81.0 Age-related osteoporosis without current pathological fracture (principal)
CPT/HCPCS: 96374; J3489

== ENCOUNTER 2022-07-30 10:06 | Outpatient (CLI) | payer MEDICARE, SELFPAY ==
--- NOTE | ~2022-07-30 | XR_ITS ---
EXAMINATION:XR_CERV2-3V_CR DATE: 07/30/2022 10:50 INDICATION: Neck pain TECHNIQUE: AP, lateral, lateral swimmers and odontoid views of the cervical spine are provided. COMPARISON: None FINDINGS: Alignment is normal. The odontoid process is intact. No fracture is identified. The vertebr al body heights are maintained. There is severe loss of intervertebral disc space height at C4-5, C5- 6, and C6-7. There is severe facet and uncovertebral joint osteoarthritis at these levels. Prevertebr al soft tissues are normal. IMPRESSION: 1. Severe spondylosis of the mid and lower cervical spine without acute findings. Reviewed, dictated and finalized at location B. IMPRESSION: 1. Severe spondylosis of the mid and lower cervical spine without acute finding s.
[2022-07-30 10:42] LABS: Basophils Absolute Auto 0.04 K/mm3 (0.00-0.10); Basophils Percent Auto 0.7 % (0.0-1.0); Eosinophils Absolute Auto 0.08 K/mm3 (0.02-0.50); Eosinophils Percent Auto 1.3 % (1.0-6.0); Hematocrit 43.8 % (35.0-42.0); Hemoglobin 14.1 g/dL (11.7-13.8); Immature Granulocyte Absolute 0.02 K/mm3 (0.00-0.00); Immature Granulocyte Percent A 0.3 % (0.0-0.0); Lymphocytes Absolute Auto 2.24 K/mm3 (1.10-4.50); Lymphocytes Percent Auto 36.8 % (18.0-42.0); Mean Corpuscular HGB Conc 32.2 g/dL (32.0-36.0); Mean Corpuscular Volume 96.3 fL (78.0-102.0); Mean Platelet Volume 10.2 fl (9.2-11.8); Monocytes Absolute Auto 0.39 K/mm3 (0.10-0.90); Monocytes Percent Auto 6.4 % (2.0-11.0); Neutrophils Absolute Auto 3.3 K/mm3 (1.7-7.2); Neutrophils Percent Auto 54.5 % (50.0-70.0); Platelet Count Result 325 K/mm3 (150-420); Red Blood Count 4.55 M/mm3 (4.20-5.40); Red Cell Distribution Width 12.8 % (11.6-14.4); White Blood Count 6.1 K/mm3 (4.8-10.8)
[2022-07-30 11:18] LABS: SARS-CoV-2 RNA PCR Negative (Negative)
[2022-07-30 11:24] LABS: Alanine Aminotransferase 17 U/L (14-59); Albumin Level 3.5 g/dL (3.4-5.0); Alkaline Phosphatase 74 U/L (46-116); Anion Gap 5 mmol/L (8-16); Aspartate Amino Transferase 15 U/L (15-37); Bilirubin,Total 0.3 mg/dL (0.00-1.00); Blood Urea Nitrogen 17 mg/dL (7-18); CRP 0.8 mg/dL (0.0-0.9); Calcium 9.4 mg/dL (8.5-10.1); Carbon Dioxide 36 mmol/L (21-32); Chloride 104 mmol/L (98-108); Creatine Kinase 42 U/L (26-192); Estimated Glomerular Filt Rate > 60; Glucose 97 mg/dL (70-99); Osmolality Calculated 301 mOsm/kg (285-295); Potassium 4.3 mmol/L (3.5-5.1); Sodium 145 mmol/L (136-145); Total Protein 6.7 g/dL (6.4-8.2); Troponin I 8.4 ng/L (0.00-60.4)
== END 2022-07-30 10:07 | disposition home or self-care (01) ==
PROVIDERS: PCP Internal Medicine; Visit Provider Internal Medicine
DX: R55 Syncope and collapse (principal); M54.2 Cervicalgia; J06.9 Acute upper respiratory infection, unspecified; M43.02 Spondylolysis, cervical region; Z20.822 Contact with and (suspected) exposure to COVID-19
CPT/HCPCS: 36415; 72040; 80053; 82550; 82553; 84484; 85025; 86140; U0003; U0005

== ENCOUNTER 2022-07-31 14:17 | Outpatient (CLI) | payer MEDICARE, SELFPAY ==
--- NOTE | ~2022-07-31 | US_ITS ---
EXAMINATION: US carotid duplex BI DATE: 07/31/2022 14:43 INDICATION: Carotid atherosclerosis. Syncope. Neck pain. TECHNIQUE: Grayscale, color Doppler, and pulsed Doppler images of the cervical carotid arteries were obtained. The degree of vessel stenosis is placed in one of the following categories: normal, <50%, 5 0-69%, >=70% but less than near-occlusion, near-occlusion, or total occlusion. Note that percent sten osis relative to normal distal artery lumen diameter is indirectly measured from velocity measurement s as described by Sabas, et al. Radiology 2003; 229:340-346. COMPARISON: None. FINDINGS: RIGHT: The right common carotid artery (CCA) peak systolic velocity (PSV) is 86 cm/s. The right internal car otid artery (ICA) PSV is 96 cm/s. The right ICA end-diastolic velocity (EDV) is 31 cm/s. The right IC A/CCA PSV ratio is 1.1. Grayscale and color Doppler images yield an estimate of <50% diameter reducti on from plaque in the ICA. The external carotid artery (ECA) PSV is 63 cm/s. There is antegrade flow in the right vertebral artery. LEFT: The left CCA PSV is 68 cm/s. The left ICA PSV is 58 cm/s. The left ICA EDV is 15 cm/s. The left ICA/C CA PSV ratio is 0.9. Grayscale and color Doppler images yield an estimate of <50% diameter reduction from plaque in the ICA. The ECA PSV is 55 cm/s. There is antegrade flow in the left vertebral artery. IMPRESSION: 1. <50% stenosis in the right internal carotid artery. 2. <50% stenosis in the left internal carotid artery. Reviewed, dictated and finalized at location A.
== END 2022-07-31 14:18 | disposition home or self-care (01) ==
LOC: CHSIMG 14:18
PROVIDERS: PCP Internal Medicine; Visit Provider Internal Medicine
DX: R55 Syncope and collapse (principal); M54.2 Cervicalgia; J06.9 Acute upper respiratory infection, unspecified; I65.23 Occlusion and stenosis of bilateral carotid arteries
CPT/HCPCS: 93880

== ENCOUNTER 2022-08-06 07:47 | Outpatient (RCR) | payer MEDICARE, SELFPAY ==
--- NOTE | 2022-08-06 07:21 | PTOPEVAL1 ---
Assessment and note entered by Joel Melendez Evaluation Information Assessment Status Evaluation Diagnosis neck pain Onset 07/31/22 Subjective Information Pt. reports that she has had on/off neck pain on the left side for awhile. Pt. reports that her pain will come and go based upon what she does. She notes she can have pain increases with turning her head, looking up and while sitting in one position such as driving. She reports no problem sleeping at night. She states that she is retired . She reports that her goal is to decrease her pain in the neck with activity. Reported Pain Level Pain Score 2: Self Report Assessment PT Clinical Summary Pt. is an 81 year old female who enters the clinic due to neck pain. She presents with impaired c- spine mobility, impaired u.e. strength, impaired postural awareness, and pain. Continued skilled PT is indicated in order to improve these areas to allow the pt. to achieve imrpoved comfort with all IADL's. Plan of Care Interventions Electrical Stimulation,Hot Pack/Cold Pack,Manual Therapy,Mechanical Traction,Neuro Re-education, Patient/Caregiver Educati,Therapeutic Activities, Therapeutic Exercise,Self-Care/Home Management PT Services Indicated Yes Treatment Frequency and 3x/week x 12 visits Duration These treatments will address the objective and functional deficits as defined above. The patient will be advanced safely and appropriately in order for the patient to progress towards his/her prior level of function. Additional exercises will be introduced and as well as a comprehensive home exercise program upon discharge, if needed, ?to ensure carryover of functional gains achieved in the clinic. This treatment plan has been reviewed and agreement upon by the patient.
--- NOTE | 2022-08-27 07:58 | PTOPEVAL1 ---
Assessment and note entered by Joel Melendez Evaluation Information Assessment Status Progress Diagnosis neck pain Onset 07/31/22 Subjective Information Pt. reports that her pain is no longer constant. She does get pain in the evenings sometimes, but much less intense. She reports that she still notes stiffness with reaching overhead and is trying to be more aware of her posture. She states that stiffness with turning her head is still present, especially in the mornings. Reported Pain Level Pain Score 1: Self Report Assessment PT Clinical Summary Pt. has attended a total of 10 treatment sessions. In this time she has demonstrated improvements in subjective pain reports, cervical spine ROM and postural awareness. Continued skilled PT is indicated in order to continue to decrease pain and advance exercise for improved core stability. Plan of Care Interventions Electrical Stimulation,Hot Pack/Cold Pack,Manual Therapy,Therapeutic Activities,Therapeutic Exercise PT Services Indicated Yes Treatment Frequency and Continue with 2 remaining sessions on pt. POC Duration focusing on advancing core stabilization technqiues. These treatments will address the objective and functional deficits as defined above. The patient will be advanced safely and appropriately in order for the patient to progress towards his/her prior level of function. Additional exercises will be introduced and as well as a comprehensive home exercise program upon discharge, if needed, ?to ensure carryover of functional gains achieved in the clinic. This treatment plan has been reviewed and agreement upon by the patient.
--- NOTE | 2022-08-31 08:10 | PTOPDC ---
Assessment and note entered by Kailyn Cash DPT Evaluation Information Assessment Status Re-evaluation Diagnosis neck pain Onset 07/31/22 Subjective Information Viola reports she has very minimal pain today. She reports less stiffness in her arms with reaching, She reports she is at a point where she can manage symptoms with HEP. Reported Pain Level Pain Score 1: Self Report Assessment PT Clinical Summary Patient was seen for 12 visits of skilled PT. She made great progress and partially met her set goals. She demonstrates 75 deg of B cervical rotation, increased B UE strength and decreased pain. She is independent with HEP and is appropriate for DC at this time. Plan of Care PT Services Indicated No
== END 2022-08-31 10:57 | disposition home or self-care (01) ==
LOC: CHSPT 07:47
PROVIDERS: PCP Internal Medicine; Visit Provider Internal Medicine
DX: G90.09 Other idiopathic peripheral autonomic neuropathy (principal)
CPT/HCPCS: 97014; 97110; 97140; 97161; G0283

== ENCOUNTER 2022-09-28 09:46 | Outpatient (CLI) | payer MEDICARE, SELFPAY ==
--- NOTE | ~2022-09-28 | CT_ITS ---
CT Scan of the Chest without Contrast: Clinical Indication: Nonspecific abnormal finding of lung field Technique: Contiguous sections were acquired throughout the chest without intravenous contrast. Dose reduction technique was used on this scan by utilizing automated exposure control and iterative recon struction technique. The dose-length product (DLP) was 75.88 mGy-cm. COMPARISON: 12/14/2021 Findings: There is no evidence of any significant mediastinal, hilar or axillary lymphadenopathy. The mediastin al soft tissues appear normal. There is no evidence of pleural or pericardial effusion. 1.2 x 0.7 cm right upper lobe pulmonary nodule is similar to minimally decreased from prior exam (axi al image 65). Medial right lower lobe nodules measuring 9 mm (axial image 96), and 8 mm (axial image 99) in diameter are also essentially stable from prior exam. Small calcified granulomas are also pres ent. Right middle lobe scarring is present. Images through the upper abdomen reveal no abnormalities. Impression: Pulmonary nodules, as detailed above, stable from prior exam. Continued follow-up to document two-yea rs of stability advised. Reviewed, dictated and finalized at [facility]. Impression: Pulmonary nodules, as detailed above, stable from prior exam. Continued follow- up to document two-years of stability advised.
== END 2022-09-28 09:47 | disposition home or self-care (01) ==
PROVIDERS: PCP Internal Medicine; Visit Provider Internal Medicine Pulmonary Disease
DX: R91.8 Other nonspecific abnormal finding of lung field (principal)
CPT/HCPCS: 71250

== ENCOUNTER 2023-06-10 12:48 | Outpatient (CLI) | payer MEDICARE, SELFPAY ==
--- NOTE | ~2023-06-10 | DEXA_ITS ---
Bone Density Report Name: KETTY SALES Age: 82 Sex: Female Ethnicity: White Date of : 1940 Indication: postmenopausal; screening for osteoporosis; height loss; cancer; hysterectomy; Referring Provider: Quan Arriaza Study: Bone densitometry was performed. Exam Date: June 10, 2023 Accession number: [id number] Bone Density: Region BMD T-score Z-score Classification AP Spine(L1-L4) 0.895 -1.4 1.4 Osteopenia Femoral Neck (Left) 0.596 -2.3 0.2 Osteopenia Total Hip (Left) 0.761 -1.5 0.8 Osteopenia Femoral Neck (Right) 0.580 -2.4 0.0 Osteopenia Total Hip (Right) 0.737 -1.7 0.6 Osteopenia Femoral Neck Mean 0.588 -2.4 0.1 Osteopenia Total Hip Mean 0.749 -1.6 0.7 Osteopenia World Health Organization criteria for BMD impression classify patients as: Normal (T-score at or above -1.0), Osteopenia (T-score between -1.0 and -2.5), or Osteoporosis (T-score at or below -2.5). 10-year Fracture Risk(1): Major Osteoporotic Fracture 14% Hip Fracture 5.3% Reported Risk Factors: [place] (), Neck BMD=0.580, BMI=19.3 (1) FRAX(R) Version 3.08. Fracture probability calculated for an untreated patient. Fracture probability may be lower if the patient has received treatment. Clinical Information Provided by Patient: Has used the following medications: Vitamin D, Calcium, multi Has the following medical conditions: Cancer, Hysterectomy Patient maximum height was 67 Menopause Age: 49 No regular weight bearing exercise Does not regularly consume dairy products Onset of menses at age 11 Number of children 3 Impression: The patient has low bone mass, based on the Right Femoral Neck T-score. Discussion: BONE DENSITY IS LOW AT ONE OR MORE SKELETAL SITES. This patient's lowest T-score is low at one or more skeletal sites. It meets the World Health Organization's (WHO) criteria for ?low bone mass? (T-score between -1.0 and -2.5). The patient's 10-year risk of fracture as calculated by FRAX is less than the threshold where pharmacological therapy is recommended by the National Osteoporosis Foundation (NOF). However, all treatment decisions require clinical judgment and consideration of individual patient factors, including patient preferences, comorbidities, previous drug use, risk factors not captured in the FRAX model (e.g., frailty, falls, vitamin D deficiency, increased bone turnover, interval significant decline in bone density) and possible under or overestimation of fracture risk by FRAX. The patient should follow a healthful lifestyle (good nutrition with adequate calcium and vitamin D, and appropriate weight-bearing exercise). Follow-Up: Consider repeating this study in 2 to 3 years to reassess this patient's status, or sooner if there is some new clinical indicati
--- NOTE | ~2023-06-10 | MM_ITS ---
EXAMINATION: MM screening odilia BI w em HISTORY: Screening mammogram, family history of breast cancer in her daughter. TECHNIQUE: Craniocaudal and mediolateral oblique 3-D tomosynthesis images were obtained and synthetic 2-D images were generated. CAD analysis was submitted and interpreted. COMPARISON: 06/07/2022, 06/05/2021, 05/30/2021, 05/27/2020 BREAST PARENCHYMAL COMPOSITION: There are scattered areas of fibroglandular density. FINDINGS: No suspicious mass, calcification, or architectural distortion are identified in either amanda ast to suggest malignancy. There has been no suspicious interval change. IMPRESSION: 1. No mammographic evidence of malignancy. 2. Recommend routine screening mammography while the patient remains in good health. BI-RADS Category 1: Negative Reviewed, dictated and finalized at location A. SOCIAL WORK IMPRESSION: 1. No mammographic evidence of malignancy. 2. Recommend routine screening mammography while the patient remains in good he alth. BI-RADS Category 1: Negative
--- NOTE | 2023-06-10 13:29 | ECHO_ITS ---
Patient Info Name: Viola Bazan Age: 82 years : 1940 Gender: Female Ht: 65 in Wt: 140 lbs BSA: 1.71 m2 HR: 68 bpm BP: 177 / 96 mmHg Heart Rhythm: Sinus Arrhythmia Technical Quality: Good Exam Date: 06/10/2023 2:21 PM Exam Location: Echo Lab Patient Status: Outpatient Admit Date: 06/10/2023 Staff Ordering Physician: Quan Arriaza MD Metal Smelter: Salomon Moore RDCS Attending Provider: Quan Arriaza MD Exam Type: CA echo doppler color flow Study Info Indications - syncope Complete two-dimensional, color flow and Doppler transthoracic echocardiogram is performed. Summary 1. Complete two-dimensional, color flow and Doppler transthoracic echocardiogram is performed. 2. Left ventricular chamber dimension is normal. 3. Left ventricular systolic function is normal, estimated at 60-65%. 4. The left ventricular diastolic function is grade I diastolic dysfunction. 5. E/e' 9 is minimally elevated. 6. Left atrial chamber dimension is mildly enlarged. 7. There is mild aortic valve sclerosis. 8. There is mild aortic valve regurgitation. 9. There is trace mitral valve regurgitation. 10. There is mild tricuspid valve regurgitation. 11. No pulmonary hypertension, estimated pulmonary arterial systolic pressure is 34 mmHg. Left Ventricle E/e' 9 is minimally elevated. Left ventricular chamber dimension is normal. Left ventricular systolic function is normal, estimated at 60-65%. The left ventricular diastolic function is grade I diastolic dysfunction. Right Ventricle Right ventricular systolic function is normal and with normal TAPSE 2.6 cm. Right ventricular chamber dimension is normal. Left Atria Left atrial chamber dimension is mildly enlarged. Right Atria Right atrial chamber dimension is normal. Aortic Valve The aortic valve is trileaflet. There is mild aortic valve sclerosis. There is no aortic valve stenosis. There is mild aortic valve regurgitation. Pulmonic Valve There is no pulmonic regurgitation. Mitral Valve There is no mitral valve stenosis. There is trace mitral valve regurgitation. Tricuspid Valve There is mild tricuspid valve regurgitation. No pulmonary hypertension, estimated pulmonary arterial systolic pressure is 34 mmHg. Pericardium/Pleural There is no pericardial effusion. Inferior Vena Cava Normal inferior vena cava with >50% collapse upon inspiration consistent with normal right atrial pressure, 5 mmHg. Aorta The aortic root size at the sinus of Valsalva is normal. Left Ventricular Outflow Tract Name Value Normal LVOT 2D LVOT Diameter 2.2 cm LVOT Doppler LVOT Peak Velocity 97 cm/s LVOT Peak Gradient 4 mmHg LVOT Mean Gradient 2 mmHg LVOT VTI 23 cm LVOT VTI/AV VTI Ratio 0.8 LVOT Stroke Volume 85 ml Pulmonic Valve Name Value Normal RVOT Doppler
--- NOTE | 2023-07-12 12:21 | WPDHOLTEREM ---
Holter/Event Monitor Holter/Event Monitor Date of procedure: 06/10/23 Holter/Event Procedure: Event Monitor Indications: Palpitations Conclusion: 1. 30 day event monitor between 06/10/23-07/09/23. This is an event-triggered monitor only. There are 18 available transmissions for analysis. 2. Predominant rhythm is sinus rhythm. 3. There are intermittent episodes of premature supraventricular complexes. There are 3 episodes of atrial tachycardia, fastest at 170 bpm and longest lasting 10 seconds. 4. There are occasional premature ventricular complexes. There is 1 episode of ventricular tachycardia at 160 bpm lasting 10 beats on 06/28/23 at 16:16. 5. No significant pauses greater than 2 seconds. 6. Patient reports 1 episode of symptom of lightheadedness/dizziness which demonstrate sinus rhythm at 85 bpm with PAC's.
== END 2023-06-10 12:49 | disposition home or self-care (01) ==
LOC: CHSIMG 12:49
PROVIDERS: PCP Internal Medicine; Visit Provider Internal Medicine
DX: R55 Syncope and collapse (principal); Z78.0 Asymptomatic menopausal state; Z12.31 Encounter for screening mammogram for malignant neoplasm of breast; I08.3 Combined rheumatic disorders of mitral, aortic and tricuspid valves
CPT/HCPCS: 77063; 77067; 77080; 93270; 93306

== ENCOUNTER 2023-07-22 08:23 | Outpatient (CLI) | payer MEDICARE, SELFPAY ==
[2023-07-22] MEDS: ZOLEDRONIC ACID 5 MG/100 ML 100 ML 400 MG IVPB (08:40)
[2023-07-22 08:43] VITALS: BMI 21.5
[2023-07-22 08:44] VITALS: BP 155/76; PULSE 72; RESP 14; TEMP 36.4; O2SAT 97
--- NOTE | 2023-07-22 09:08 | PC.NURSE ---
Patient here for yearly IV Reclast. Education given. NO concerns voiced. Reports bone density test report no change, so Dr. Arriaza said just keep what we are doing. Infusion administered. SEE MAR. Tolerated well. Safe exit of hospital per self/amb.
== END 2023-07-22 09:10 | disposition home or self-care (01) ==
LOC: CHSTREATRM 08:26
PROVIDERS: PCP Internal Medicine; Visit Provider Internal Medicine
DX: M81.0 Age-related osteoporosis without current pathological fracture (principal)
CPT/HCPCS: 96374; J3489

== ENCOUNTER 2023-08-08 07:57 | Outpatient (CLI) | payer MEDICARE, SELFPAY ==
[2023-08-08 08:13] LABS: Basophils Absolute Auto 0.03 K/mm3 (0.00-0.10); Basophils Percent Auto 0.6 % (0.0-1.0); Eosinophils Absolute Auto 0.06 K/mm3 (0.02-0.50); Eosinophils Percent Auto 1.2 % (1.0-6.0); Hematocrit 43.4 % (35.0-42.0); Hemoglobin 13.8 g/dL (11.7-13.8); Immature Granulocyte Absolute 0.01 K/mm3 (0.00-0.00); Immature Granulocyte Percent A 0.2 % (0.0-0.0); Lymphocytes Absolute Auto 2.33 K/mm3 (1.10-4.50); Lymphocytes Percent Auto 47.9 % (18.0-42.0); Mean Corpuscular HGB Conc 31.8 g/dL (32-36); Mean Corpuscular Hemoglobin 31.4 pg (27.0-31.0); Mean Corpuscular Volume 98.9 fL (78.0-102.0); Monocytes Absolute Auto 0.41 K/mm3 (0.10-0.90); Monocytes Percent Auto 8.4 % (2.0-11.0); Neutrophils Absolute Auto 2.02 K/mm3 (1.70-7.20); Neutrophils Percent Auto 41.7 % (50.0-70.0); Platelet Count Result 189 K/mm3 (150-420); Red Blood Count 4.39 M/mm3 (4.20-5.40); Red Cell Distribution Width 12.6 % (11.6-14.4); White Blood Count 4.9 K/mm3 (4.8-10.8)
[2023-08-08 08:18] LABS: Appearance Urine Clear (Clear); Bilirubin Urine Negative (Negative); Blood Urine Negative (Negative); Color Urine Yellow (Yellow); Glucose Urine UA Negative (Negative); Ketones Urine Negative (Negative); Leukocyte Esterase Ur Trace (Negative); Nitrate Urine Negative (Negative); Protein Urine Negative (Negative)
[2023-08-08 08:21] LABS: Add Urine Microscopic? YES; Bacteria Urine 2+ /hpf; RBC Urine None seen /hpf (0-2); Squamous Epithelial Cell Urine Few /hpf (Few)
[2023-08-08 09:00] LABS: Alanine Aminotransferase 11 U/L (14-59); Albumin Level 3.6 g/dL (3.4-5.0); Alkaline Phosphatase 54 U/L (46-116); Anion Gap 2 mmol/L (4-12); Aspartate Amino Transferase 17 U/L (15-37); Bilirubin,Total 0.6 mg/dL (0.00-1.00); Blood Urea Nitrogen 24 mg/dL (7-18); Calcium 8.7 mg/dL (8.5-10.1); Carbon Dioxide 35 mmol/L (21-32); Chloride 107 mmol/L (98-108); Cholesterol 187 mg/dL (0-200); Estimated Glomerular Filt Rate > 60; Free T3 3.17 pg/mL (2.18-3.98); Free T4 Free Thyroxine 1.09 ng/dL (0.76-1.46); Glucose 91 mg/dL (70-99); HDL Direct 97 mg/dL (40-60); LDL Cholesterol Calculated 80 mg/dL (<130); Magnesium 2.3 mg/dL (1.8-2.4); NT Pro B Type Natriuretic Pept 270 pg/mL (0-450); Osmolality Calculated 302 mOsm/kg (285-295); Phosphorus 2.8 mg/dL (2.6-4.7); Potassium 3.9 mmol/L (3.5-5.1); Sodium 144 mmol/L (136-145); Thyroid Stimulating Hormone 1.25 uIU/mL (0.36-3.74); Total Protein 6.1 g/dL (6.4-8.2); Triglycerides 52 mg/dL (0-150)
== END 2023-08-08 07:58 | disposition home or self-care (01) ==
LOC: CHSLAB 07:59
PROVIDERS: PCP Internal Medicine; Visit Provider Internal Medicine
DX: E78.5 Hyperlipidemia, unspecified (principal); I10 Essential (primary) hypertension; R00.0 Tachycardia, unspecified; R55 Syncope and collapse; R06.00 Dyspnea, unspecified
CPT/HCPCS: 36415; 80053; 80061; 81001; 83735; 83880; 84100; 84439; 84443; 84481; 85025

== ENCOUNTER 2023-09-02 08:04 | Outpatient (CLI) | payer MEDICARE, SELFPAY ==
--- NOTE | 2023-09-02 08:10 | EST_ITS ---
Patient Info Name: Viola Bazan Age: 82 years : 1940 Gender: Female Ht: 66 in Wt: 141 lbs BSA: 1.73 m2 HR: 53 bpm BP: 124 / 80 mmHg Heart Rhythm: Bradycardia Technical Quality: Good Exam Date: 09/02/2023 9:41 AM Exam Location: Echo Lab Patient Status: Outpatient Admit Date: 09/02/2023 Staff Ordering Physician: Romulo Brink DO Attending Provider: Romulo Brink DO Exam Type: CA stress arnaldo w NM Study Info A regadenoson stress test was performed. History/Risk Factors Hypertension: Yes Dyslipidemia: Yes COPD: Not Treated History/Risk Factors PAT, PVT. Summary 1. 1. Negative lexiscan stress test for ischemic ST changes by ECG criteria. 2. 2. Stable hemodynamics throughout the test. 3. 3. Nuclear scan to follow and will be reported separately. Please correlate with it. Protocol: LEXISCAN Stress ECG Details Stage: REST Duration (min): 5 min : 10 sec HR (bpm): 56 SBP (mmHg): 124 DBP (mmHg): 80 Stage: REST Duration (min): 10 min : 40 sec HR (bpm): 63 SBP (mmHg): 124 DBP (mmHg): 80 Stage: STAGE 1 Duration (min): 0 min : 41 sec HR (bpm): 63 SBP (mmHg): 124 DBP (mmHg): 80 Stage: RECOVERY Duration (min): 0 min : 18 sec HR (bpm): 67 SBP (mmHg): 124 DBP (mmHg): 80 Stage: RECOVERY Duration (min): 1 min : 18 sec HR (bpm): 90 SBP (mmHg): 124 DBP (mmHg): 80 Stage: RECOVERY Duration (min): 2 min : 18 sec HR (bpm): 90 SBP (mmHg): 123 DBP (mmHg): 62 Stage: RECOVERY Duration (min): 3 min : 18 sec HR (bpm): 95 SBP (mmHg): 123 DBP (mmHg): 61 Stage: RECOVERY Duration (min): 4 min : 18 sec HR (bpm): 84 SBP (mmHg): 134 DBP (mmHg): 63 Stage: RECOVERY Duration (min): 4 min : 18 sec HR (bpm): 84 SBP (mmHg): 134 DBP (mmHg): 63 Rest HR: 63 bpm Peak HR: 97 bpm Rest Sys BP: 124 mmHg Peak Sys BP: 134 mmHg Max Pred HR: 137 bpm % Max Pred HR: 71 % Target HR: 116 bpm Max RPP: 12,998 bpm*mmHg Termination Reason: Completed Protocol Cardiac Symptoms: None Total Time: 0 min : 41 sec Rest Hernandez BP: 80 mmHg Peak Hernandez BP: 63 mmHg Total Dose: 0.4 mg Resting ECG Sinus bradycardia. Stress ECG No abnormal ST/T wave changes. Arrhythmias Occasional PVCs. Report Signatures
--- NOTE | 2023-09-02 13:16 | WPDCARIOSTRE ---
Nuclear Stress Test INDICATIONS Indications: Ventricular tachycardia PROCEDURE Procedure Performed: Myocardial Perf Spect-Multi Procedure: Patient underwent a lexiscan stress test and immediately was injected with 33.1 mCi of cardiolyte. Multiple tomographic images were obtained. There is a small mild apical perfusion defect with stress imaging. A separate resting images were obtained after patient was injected with 10.6 mCi of cardiolyte. Multiple tomographic images were obtained. There is a small mild apical perfusion defect with rest imaging. CONCLUSION Conclusion: 1. Myocardial perfusion imaging demonstrating a fixed small size apical perfusion defect suggestive of attenuation artifact. 2. No evidence of reversible ischemia. 3. Left ventriculogram demonstrates normal measured ejection fraction of 52% with no wall motion abnormalities. 4. TID score 1.12 is not elevated.
== END 2023-09-02 08:05 | disposition home or self-care (01) ==
LOC: CHSIMG 08:05
PROVIDERS: PCP Internal Medicine; Visit Provider Internal Medicine Cardiovascular Disease
DX: I47.29 Other ventricular tachycardia (principal)
CPT/HCPCS: 78452; 93017; A9502; J2785

== ENCOUNTER 2023-12-20 11:15 | Outpatient (CLI) | payer MEDICARE, SELFPAY ==
--- NOTE | ~2023-12-20 | XR_ITS ---
XR knee RT 3V 12/20/2023 11:36 Indication: Right knee pain Procedure: 3 views right knee Comparison: No prior studies for comparison. Findings: There is moderate patellofemoral compartment osteoarthritis. Small joint effusion. No fract ure or traumatic malalignment. Impression: 1: Moderate patellofemoral compartment osteoarthritis. Reviewed, dictated and finalized at location B. Impression: 1: Moderate patellofemoral compartment osteoarthritis.
== END 2023-12-20 11:16 | disposition home or self-care (01) ==
LOC: CHSIMG 11:16
PROVIDERS: PCP Internal Medicine; Visit Provider Internal Medicine
DX: M25.561 Pain in right knee (principal); M17.11 Unilateral primary osteoarthritis, right knee
CPT/HCPCS: 73562

== ENCOUNTER 2024-05-08 13:10 | Emergency (ER) | payer MEDICARE, SELFPAY ==
--- NOTE | ~2024-05-08 | XR_ITS ---
EXAMINATION: XR wrist RT 2V DATE: 05/08/2024 13:54 INDICATION: Distal right radius fracture status post reduction. TECHNIQUE: 2 views of right wrist were obtained. COMPARISON: Right wrist radiographs 05/08/2024 at 1:25 PM FINDINGS: There is a comminuted fractured of distal radius without involvement of the distal articula r surface. The main distal fracture fragment demonstrates impaction, 4 mm dorsal displacement, dorsal angulation, and 14 degrees radial angulation. There is 31 degrees dorsal tilt of the distal articula r surface. There is a transverse fracture of distal ulna. The distal fracture fragment demonstrates i mpaction. 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 IMPRESSION: 1. Comminuted fractured of distal radius with improvement in alignment. 2. Transverse fracture of distal ulna. Reviewed, dictated and finalized at location A. R CUTTER
--- NOTE | ~2024-05-08 | XR_ITS ---
HISTORY: fall, Rt. wrist pain/ deformity COMPARISON: None TECHNIQUE: 3 views of the left wrist were performed. FINDINGS: Comminuted and impacted fracture of the distal radius and ulna are identified, with overlap of the fr acture fragments. Dorsal dislocation is present. Diffuse bony demineralization is identified. Moderate soft tissue swelling and deformity is also noted. IMPRESSION: Comminuted, impacted fracture of the distal radius and ulna with dorsal dislocation of the distal fra cture fragments. Significant bony demineralization. Reviewed, dictated and finalized at location A. 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 Significant bony demineralization.
[2024-05-08 13:10] VITALS: BP 172/84; PULSE 84; RESP 16; TEMP 36.9; O2SAT 99
--- NOTE | 2024-05-08 13:25 | ED.UPPEXIN ---
HPI - Extremity Injury (Upper) General Chief Complaint: Extremity Injury, Upper Stated Complaint: right wrist injury/fall Time Seen by Provider: 05/08/24 13:21 Source: patient Mode of arrival: ambulatory Limitations: no limitations History of Present Illness HPI narrative: patient slipped on ice prior to arrival, complaining of right wrist pain, denies other injuries. Patient on baby aspirin Related Data Home Medications ?Medication ?Instructions ?Recorded ?Confirmed ?Last Taken ?Type amlodipine 2.5 mg tablet 2.5 mg PO DAILY 05/19/20 11/25/23 06/07/20 22:00 History lisinopril 20 1 tablet PO DAILY 05/19/20 11/25/23 06/07/20 07:00 History mg-hydrochlorothiazide 25 mg tablet simvastatin 20 mg tablet 20 mg PO DAILY 05/19/20 11/25/23 06/07/20 22:00 History ascorbic acid (vitamin C) 500 mg 500 mg PO DAILY 01/11/22 11/25/23 Unknown History tablet (Vitamin C) aspirin 81 mg tablet,delayed 81 mg PO DAILY 01/11/22 11/25/23 01/09/22 History release cholecalciferol (vitamin D3) 25 25 mcg PO DAILY 01/11/22 11/25/23 Unknown History mcg (1,000 unit) capsule (Vitamin D3) multivitamin 1 tablet PO DAILY 01/11/22 11/25/23 Unknown History omega-3 fatty acids 1,000 mg PO DAILY 01/11/22 11/25/23 Unknown History magnesium 200 mg tablet 200 mg PO DAILY 08/19/23 11/25/23 Unknown History Allergies Allergy/AdvReac Type Severity Reaction Status Date / Time No Known Allergies Allergy Verified 05/08/24 13:26 Review of Systems Review of Systems: All systems reviewed & are unremarkable except as noted in HPI and below PMFSH Past Medical History Medical History Colon cancer screening Hyperlipidemia HTN (hypertension) Surgical History Surgical History History of cholecystectomy History of resection of liver Social History Social History Smoking status: Never smoker Alcohol intake: never Substance use: never Substance use type: does not use Living arrangements: alone Occupation/Education: retired Gender identity (if verbalized by the patient): Female Spiritual care concerns: No Exam Narrative: General appearance: Well-developed, well-nourished Skin: Normal color Head: Normocephalic, nontraumatic Eyes: Clear conjunctiva ENT: Oropharynx normal, ears normal, nose normal Neck: Supple, nontender Chest and respiratory: Airway patent, no respiratory distress, no accessory muscle use Heart: Regular rate/rhythm Abdomen: Soft, nontender, no organomegaly, quiet bowel sounds Vascular: Normal peripheral pulses, normal capillary refill. Musculoskeletal: right wrist deformity knee, severe limited range of motion Neurologic: Alert and oriented ?3, [employer] is normal as tested, no gross motor deficit Course Consultations Consultation #1: DR CASTELLANOS, [facility] Date: 05/08/24 Time: 14:37 Vital Signs Vital signs: Vital Signs Temperature 36.9 C 05/08/24 13:10 Pulse Rate 84 05/08/24 13:10 Respiratory Rate 16 05/08/24 13:10 Blood Pressure 172/84 H 05/08/24 13:10 Pulse Oximetry 99 05/08/24 13:10 Oxygen Delivery Room Air 05/08/24 13:10 Temperature 36.9 C 05/08/24 13:10 Pulse Rate 74 05/08/24 14:20 Respiratory Rate 16 05/08/24 14:20 Blood Pressure 177/86 H 05/08/24 14:20 Pulse Oximetry 99 05/08/24 14:20 Oxygen Delivery Room Air 05/08/24 14:20 Procedures Orthopedic Fracture Reduction Fracture #1: Fracture Reduction date: 05/08/24 Fracture Reduction time: 13:51 Time Out Performed: Yes (15) Side: right Fracture Reduction Location: radius and ulna Analgesia: hematoma block Pre-Procedure Neuro Vascular Exam: normal Technique: direct manipulation and traction/counter-traction Post Reduction X-rays Demonstrate: acceptable reduction Post-reduction neuro exam: intact Post-reduction vascular exam: intact Splint Applied: Yes Patient Tolerated Procedure: well MDM - Extremity Injury (Upper) Imaging Data My impression: Impressions Wrist X-Ray 05/08/24 13:40 IMPRESSION: Comminuted, impacted fracture of the distal radius and ulna with dorsal dislocation of the distal fracture fragments. Significant bony demineralization. Wrist X-Ray 05/08/24 14:22 IMPRESSION: 1. Comminuted fractured of distal radius with improvement in alignment. 2. Transverse fracture of distal ulna. Radiologist's impression: Impressions Wrist X-Ray 05/08/24 13:40 IMPRESSION: Comminuted, impacted fracture of the distal radius and ulna with dorsal dislocation of the distal fracture fragments. Significant bony demineralization. Critical Care Time Critical Care Time Critical Care Time: No Discharge Plan Discharge Clinical Impression: Fracture dislocation of right wrist Patient Disposition: Acute Care Hospital Condition: Stable Additional Instructions: Transferred to [facility] Patient Language: Mauritanian Prescriptions: No Action magnesium 200 mg tablet 200 mg PO DAILY amlodipine 2.5 mg tablet 2.5 mg PO DAILY simvastatin 20 mg tablet 20 mg PO DAILY lisinopril-hydrochlorothiazide 20-25 mg tablet 1 tablet PO DAILY multivitamin Tablet 1 tablet PO DAILY aspirin [Aspir-81] 81 mg Tablet,Delayed Release (Dr/Ec) 81 mg PO DAILY ascorbic acid (vitamin C) [Vitamin C] 500 mg Tablet 500 mg PO DAILY cholecalciferol (vitamin D3) [Vitamin D3] 25 mcg (1,000 unit) Capsule 25 mcg PO DAILY Fish Oil Capsule 1,000 mg PO DAILY metoprolol succinate 25 mg tablet extended release 24 hr See Rx Instructions .ROUTE .COMPLEX Qty: 90 2RF Dose Instruction: TAKE 1 TABLET BY MOUTH DAILY Rx Instructions: TAKE 1 TABLET BY MOUTH DAILY Follow-up/Referrals: Quan Arriaza MD [Primary Care Provider] -
[2024-05-08] MEDS: LIDOCAINE 1% LOCAL INJ 10 ML VIAL INFILTRATE (13:29)
[2024-05-08 14:20] VITALS: BP 177/86; PULSE 74; RESP 16; O2SAT 99
--- NOTE | 2024-05-08 14:57 | PC.NURSE ---
[facility] CALLED PER DISPATCH TO [facility] REQUEST FOR TRANSFER
== END 2024-05-08 14:51 | disposition short-term general hospital (02) ==
PROVIDERS: Emergency Provider Emergency Medicine; PCP Internal Medicine
DX: S52.501A Unspecified fracture of the lower end of right radius, initial encounter for closed fracture (principal); S52.601A Unspecified fracture of lower end of right ulna, initial encounter for closed fracture; W00.0XXA Fall on same level due to ice and snow, initial encounter
CPT/HCPCS: 25605; 73100; 73110; 99285; J2003

== ENCOUNTER 2024-06-09 13:52 | Outpatient (RCR) | payer MEDICARE, SELFPAY ==
--- NOTE | 2024-06-10 09:55 | BUOTOPEVAL ---
Assessment and note entered by Leticia Doll, OT Evaluation Information Assessment Status Evaluation Diagnosis Closed fracture of R distal radius and ulna, routine healing, subsequent ICD-10 Condition Codes (OT) Joint stiffness of right hand M25.641,Pain in right wrist M25.531,Generalized muscle weakness M62.81 Onset 05/08/24 Reported Pain Level Pain Score 0: Self Report Assessment OT Clinical Summary The patient is an 83 year old female who was referred to outpatient OT due to closed fracture of right distal radius and ulna with routine healing subsequent encounter. The patient received surgery 05/18/24 where they placed plate and screws. The patient previously demonstrated WNL wrist AROM, no pain, WNL neonatal specialist/pinch strength, and no edema with patient able to perform all ADLs/ IADLs with independence. The patient now demonstrates severe dysfunction of R UE scoring 77 .3% on QuickDASH questionnaire at evaluation. She demonstrates minimal pain at rest but during AROM the patient's pain increases. She demonstrates significantly limited AROM and discomfort with digit flexion/extension reporting stiffness. Clothing Pattern Preparer and pinch were not assessed at this time due to healing time and focusing on edema and ROM at this time, to assess at a later date. The patient demonstrates the need for skilled OT to address AROM, edema/scar management, pain, and neonatal specialist/pinch at a later date. Plan of Care Interventions Therapeutic Exercise,Manual Therapy,Neuro Re- education,Therapeutic Activities,Sensory Integrative Techniques,Prosthetic Training, Ultrasound OT Services Indicated Yes Treatment Frequency and 2-3x/week for 10 visits. Duration These treatments will address the objective and functional deficits as defined above. The patient will be advanced safely and appropriately in order for the patient to progress towards his/her prior level of function. Additional exercises will be introduced and as well as a comprehensive home exercise program upon discharge, if needed, ?to ensure carryover of functional gains achieved in the clinic. This treatment plan has been reviewed and agreement upon by the patient.
--- NOTE | 2024-06-10 09:55 | OPREHPOC ---
Outpatient Therapy Plan of Care This is a Multidisciplinary Plan of Care that may contain components documented by all disciplines (PT, OT, and ST.) OT Problem 1 OT Problem #1 Knowledge Deficit OT Goal 1 Goal / Goal Update The patient will demonstrate 100% knowledge and return demonstration for UE HEP needed to regain independence. Target Visit 10 OT Problem 2 OT Problem #2 Impaired Range of Motion OT Goal 1 Goal / Goal Update The patient will demonstrate increased AROM of R wrist with wrist flexion at >45 degrees, wrist extension at >50 degrees, radial deviation >13 degrees, ulnar deviation >20 degrees, and supination >80 degrees in order to return wrist mobility for homemaking tasks. SOC: R wrist flexion: 28 degrees R wrist extension: 20 degrees Radial deviation: 10 degrees Ulnar deviation: 15 degrees Supination: 62 degrees Target Visit 10 OT Problem 3 OT Problem #3 Edema OT Goal 1 Goal / Goal Update The patient will demonstrate decreased edema of R UE measuring DPC as 19 cm and distal wrist at 15 cm in order to improve AROM and mobility of R wrist to avoid continued limitations for ADLs. SOC: R DPC: 19.5 cm L DPC: 19 cm R Distal wrist: 17 cm L Distal wrist: 14.5 cm Target Visit 10 OT Goal 2 Goal / Goal Update The patient will demonstrate <2/10 pain with AROM to perform ADLs with decreased discomfort and limitations. Target Visit 10 OT Goal 1 Goal / Goal Update The patient will demonstrate R material requirements worker strength and lateral pinch strength of WFL compared to L UE in order to decreased dropping items during daily activities. (TO INIATE AT LATER DATE TO ALLOW HEALING) Target Visit 20
--- NOTE | 2024-07-01 16:13 | OTOPPROGNS ---
Assessment and note entered by Leticia Doll, OT Evaluation Information Assessment Status Progress Diagnosis Closed fracture of R distal radius and ulna, routine healing, subsequent Assessment OT Clinical Summary The patient demonstrates significant progress in wrist AROM, edema management, HEP compliance and pain. She reports 2/10 pain during activity which has improved since SOC. She demonstrates significant increase in QuickDASH scores with good functional outcomes with therapy services. The patient continues to demonstrate deficits with AROM where patient is not WNL for wrist flexion/ extension and ulnar deviation, pain management, edema management and strength training once released from MD. The patient demonstrates good progress toward goals with reasonable expectation for improvement. Plan of Care Interventions Therapeutic Exercise,Manual Therapy,Neuro Re- education,Therapeutic Activities,Hot Pack/Cold Pack,Electrical Stimulation,Sensory Integrative Techniques,Self-Care/Home Management,Prosthetic Training,Ultrasound OT Services Indicated Yes Treatment Frequency and 2x/week for 10 visits. Duration These treatments will address the objective and functional deficits as defined above. The patient will be advanced safely and appropriately in order for the patient to progress towards his/her prior level of function. Additional exercises will be introduced and as well as a comprehensive home exercise program upon discharge, if needed, ?to ensure carryover of functional gains achieved in the clinic. This treatment plan has been reviewed and agreement upon by the patient.
--- NOTE | 2024-07-01 16:13 | OPREHPOC ---
Outpatient Therapy Plan of Care This is a Multidisciplinary Plan of Care that may contain components documented by all disciplines (PT, OT, and ST.) OT Problem 1 OT Problem #1 Knowledge Deficit OT Goal 1 Goal / Goal Update The patient will demonstrate 100% knowledge and return demonstration for UE HEP needed to regain independence. GOAL MET Target Visit 10 Progress Met OT Problem 2 OT Problem #2 Impaired Range of Motion OT Goal 1 Goal / Goal Update The patient will demonstrate increased AROM of R wrist with wrist flexion at >45 degrees, wrist extension at >50 degrees, radial deviation >13 degrees, ulnar deviation >20 degrees, and supination >80 degrees in order to return wrist mobility for homemaking tasks. SOC: R wrist flexion: 28 degrees R wrist extension: 20 degrees Radial deviation: 10 degrees Ulnar deviation: 15 degrees Supination: 62 degrees PN 07/01/2024: R wrist flexion: 30 degrees R wrist extension: 45 degrees Radial deviation: 19 degrees Ulnar deviation: 19 degrees Supination: 80 degrees Target Visit 10 Progress Partially Met OT Problem 3 OT Problem #3 Edema OT Goal 1 Goal / Goal Update The patient will demonstrate decreased edema of R UE measuring DPC as 19 cm and distal wrist at 15 cm in order to improve AROM and mobility of R wrist to avoid continued limitations for ADLs. GOAL PROGRESSING; CONTINUE 07/01/2024 SOC: R DPC: 19.5 cm L DPC: 19 cm R Distal wrist: 17 cm L Distal wrist: 14.5 cm PN 07/01/2024: R DPC: 19 cm L DPC: 19 cm R Distal wrist: 16.25 cm L Distal wrist: 14.5 cm Target Visit 10 Progress Partially Met OT Goal 2 Goal / Goal Update The patient will demonstrate <2/10 pain with AROM to perform ADLs with decreased discomfort and limitations. GOAL PROGRESSING; CONTINUE 07/01/2024 2/10 pain reported during ADLs Target Visit 10 OT Goal 1 Goal / Goal Update The patient will demonstrate R copy writer strength and lateral pinch strength of WFL compared to L UE in order to decreased dropping items during daily activities. (TO INIATE AT LATER DATE TO ALLOW HEALING) Target Visit 20
--- NOTE | 2024-07-27 08:45 | OTOPDC ---
Assessment and note entered by Leticia Doll, OT Evaluation Information Assessment Status Discharge Diagnosis Closed fracture of R distal radius and ulna, routine healing, subsequent ICD-10 Condition Codes (OT) Joint stiffness of right wrist M25.631 Reported Pain Level Pain Score 0: Self Report Assessment OT Clinical Summary The patient demonstrates good progress toward goals with increased and WNL AROM of R wrist, no pain during daily tasks, and WFL home visits nurse and pinch strength which have increased her functional independence with R UE. Although the patient demonstrates minimal weakness in home visits nurse and pinch strength, the patient is independent with theraputty HEP at this time and can carryover exercises at home. The patient demonstrates good understanding of HEP at this time and is discharged due to meeting goals and demonstrating no pain with daily tasks. The patient has made good progress toward goals and no longer requires skilled OT. Plan of Care OT Services Indicated No
--- NOTE | 2024-07-27 08:45 | OPREHPOC ---
Outpatient Therapy Plan of Care This is a Multidisciplinary Plan of Care that may contain components documented by all disciplines (PT, OT, and ST.) OT Problem 1 OT Problem #1 Knowledge Deficit OT Goal 1 Goal / Goal Update The patient will demonstrate 100% knowledge and return demonstration for UE HEP needed to regain independence. GOAL MET; DISCONTINUE Target Visit 10 Progress Met OT Problem 2 OT Problem #2 Impaired Range of Motion OT Goal 1 Goal / Goal Update The patient will demonstrate increased AROM of R wrist with wrist flexion at >45 degrees, wrist extension at >50 degrees, radial deviation >13 degrees, ulnar deviation >20 degrees, and supination >80 degrees in order to return wrist mobility for homemaking tasks. GOAL MET; DISCONTINUE 07/27/2024 SOC: R wrist flexion: 28 degrees R wrist extension: 20 degrees Radial deviation: 10 degrees Ulnar deviation: 15 degrees Supination: 62 degrees PN 07/01/2024: R wrist flexion: 30 degrees R wrist extension: 45 degrees Radial deviation: 19 degrees Ulnar deviation: 19 degrees Supination: 80 degrees Discharge: R wrist flexion: 41 degrees R wrist extension: 55 degrees R radial deviation: 20 degrees R ulnar deviation: 28 degrees R supination: 90 degrees Target Visit 10 Progress Partially Met OT Problem 3 OT Problem #3 Edema OT Goal 1 Goal / Goal Update The patient will demonstrate decreased edema of R UE measuring DPC as 19 cm and distal wrist at 15 cm in order to improve AROM and mobility of R wrist to avoid continued limitations for ADLs. GOAL PLATEAUED; DISCONTINUE 07/27/2024 SOC: R DPC: 19.5 cm L DPC: 19 cm R Distal wrist: 17 cm L Distal wrist: 14.5 cm PN 07/01/2024: R DPC: 19 cm L DPC: 19 cm R Distal wrist: 16.25 cm L Distal wrist: 14.5 cm Discharge: R DPC: 19 cm L DPC: 19 cm R Distal wrist: 16 cm L Distal wrist: 14.5 cm Target Visit 10 Progress Partially Met OT Goal 2 Goal / Goal Update The patient will demonstrate <2/10 pain with AROM to perform ADLs with decreased discomfort and limitations. GOAL MET; DISCONTINUE 07/27/2024 0/10 pain reported during ADLs Target Visit 10 OT Goal 1 Goal / Goal Update The patient will demonstrate R handstitching machine collar feller strength and lateral pinch strength of WFL compared to L UE in order to decreased dropping items during daily activities. GOAL PLATEAUED; PATIENT DISCHARGED WITH HEP R handstitching machine collar feller: 37 lbs L handstitching machine collar feller: 47 lbs R lateral pinch: 3 lbs L lateral pinch: 8 lbs Target Visit 20
== END 2024-07-27 14:36 | disposition home or self-care (01) ==
LOC: CHSOT 13:52
DX: S52.501D Unspecified fracture of the lower end of right radius, subsequent encounter for closed fracture with routine healing (principal); S52.601D Unspecified fracture of lower end of right ulna, subsequent encounter for closed fracture with routine healing
CPT/HCPCS: 97110; 97112; 97140; 97165; 97530

== ENCOUNTER 2024-06-12 14:48 | Outpatient (CLI) | payer MEDICARE, SELFPAY ==
--- NOTE | ~2024-06-12 | MM_ITS ---
EXAMINATION: MM screening odilia BI w em HISTORY: Screening TECHNIQUE: Craniocaudal and mediolateral oblique 3-D tomosynthesis images were obtained and synthetic 2-D images were generated. CAD analysis was submitted and interpreted. COMPARISON: Comparison to multiple prior studies sequentially, with oldest reviewed study dated 05/27. BREAST PARENCHYMAL COMPOSITION: Not dense: There are scattered areas of fibroglandular density. FINDINGS: There are developing asymmetries/masses in the upper central aspect of the left breast, mid dle-posterior depth. The right breast is stable without evidence for malignancy. IMPRESSION: 1. Developing left breast asymmetries/masses. 2. Additional mammographic views and possible breast ultrasound are recommended. BI-RADS Category 0: Incomplete: Needs additional imaging evaluation. Reviewed, dictated and finalized at location B. ERCIAL DRONE PILOT IMPRESSION: 1. Developing left breast asymmetries/masses. 2. Additional mammographic views and possible breast ultrasound are recommended . BI-RADS Category 0: Incomplete: Needs additional imaging evaluation.
--- OUTSIDE RECORDS SUMMARY | 2024-06-12 14:51 | XMS_ITS | Clinical Summary ---
Author Organization [facility] Address [facility] [place] [address] Care Team Providers Care Director Digital Sales Name Role Phone Unavailable Primary Care Provider Unavailabl e Social History Tobacco Use Types Packs/Day Years Used Date Smoking Tobacco: Never Assessed Comments Unknown Sex and Gender Information Value Date Recorded Sex Assigned at Not on file Legal Sex Female 7:20 PM CDT Gender Identity Not on file Sexual Orientation Not on file Last Filed Vital Signs Vital Sign Reading Time Taken Comments Blood Pressure 138/76 09/11/2016 10:01 AM CDT Pulse 79 09/11/2016 10:01 AM CDT Temperature - - Respiratory Rate - - Oxygen Saturation - - Inhaled Oxygen Concentration - - Weight 69.9 kg (154 lb) 09/11/2016 10:01 AM CDT Height 170.2 cm (5' 7 ) 09/11/2016 10:01 AM CDT Body Mass Index 24.12 09/11/2016 10:01 AM CDT Plan of Treatment Health Maintenance Due Date Last Done Comments DTaP, Tdap and Td Vaccines ( 1 - Tdap) 11/28/1958 Zoster Vaccines (1 of 2) 11/28/1989 Dexa Scan (General) 11/28/2004 Pneumococcal Vaccine: 65+ Years (2 of 2 - PCV) 04/29/2014 04/29/2013, 04/29/2012 RSV Immunization or 60+ Years (1 - 1-dose 75+ series) 11/28/2014 COVID-19 Vaccine (2023-2 5 season) 2023 Influenza Adult (#1) 2024 1940 Meningococcal B Vaccine Aged Out No l onger eligible based on patient's age to complete this topic Meningococcal Vaccine Aged Out No sonny denis eligible based on patient's age to complete this topic RSV Immunizations Under 20 Months Aged Out No longer eligible b ased on patient's age to complete this topic
--- OUTSIDE RECORDS SUMMARY | 2024-06-12 14:51 | XMS_ITS | Referral Summary ---
Author Organization [facility] [employer] Address [address] [place] [address] Care Team Providers Care Luster Applicator Name Role Phone Quan Arriaza MD Primary Care Provider [phone] Source Comments [facility],non-owned Affiliates and Associated Physician Practices is amultiple site organization consisting of ambulatory clinics and hospital sitesin [place], [place] and [place]. This disclosure is being madepursuant to the Care Everywhere program and may not contain all information available regarding this patient. Last updated 18.[facility] Encounters Date Type Department Care Team Description 06/10/2024 Orders Only [facility] [address] [place] [address] Abel Sanches MD Closed fracture of right distal radius and ulna, with routine healing, subsequent encounter 06/08/2024 Travel 06/05/2024 10:30 AM CERTIFIED ADAPTED PHYSICAL EDUCATOR - 06/05/2024 11:59 PM [facility] Hospital Encounter [facility] [address] [place] [address] Abel Sanches MD Reale, Jennifer, OTR/L Discharge Disposition: Home or Self Care 06/05/2024 8:51 AM CERTIFIED ADAPTED PHYSICAL EDUCATOR - 06/05/2024 10:29 AM [facility] Hospital Encounter [facility] DIAGNOSTIC RAD CSM [address]L [address] [facility] [place] [address] Abel Sanches MD Discharge Disposition: Home or Self Care 06/05/2024 Travel 06/05/2024 9:00 AM CERTIFIED ADAPTED PHYSICAL EDUCATOR Office Visit [facility] [address] [place] [phone] Abel Sanches MD Closed fracture of right distal radius and ulna, with routine healing, subsequent encounter (Primary Dx) 05/19/2024 Orders Only [facility] [address] [place] [phone] Abel Sanches MD Traumatic closed displaced fracture of distal end of radius, right, initial encounter 05/18/2024 Travel 05/18/2024 10:02 AM CERTIFIED ADAPTED PHYSICAL EDUCATOR Anesthesia Event [facility] [address] [place] [address] Conrad Flood MD Shaw, Thomas J, DO 05/18/2024 12:44 PM CERTIFIED ADAPTED PHYSICAL EDUCATOR - 05/18/2024 4:04 PM CERTIFIED ADAPTED PHYSICAL EDUCATOR Surgery [facility] [address] [place] [address] Abel Sanches MD DISTAL RADIUS OPEN REDUCTION INTERNAL FIXATION 05/18/2024 8:37 AM CERTIFIED ADAPTED PHYSICAL EDUCATOR - 05/18/2024 2:33 PM CERTIFIED ADAPTED PHYSICAL EDUCATOR Hospital Encounter [facility] [address] [place] [address] Abel Sanches MD Surgery General Discharge Disposition: Home or Self Care 05/13/2024 Travel 05/12/2024 9:10 AM CERTIFIED ADAPTED PHYSICAL EDUCATOR - 05/12/2024 11:59 PM CERTIFIED ADAPTED PHYSICAL EDUCATOR Hospital Encounter [facility] DIAGNOSTIC RAD CSM [address] [place] [phone] Abel Sanches MD Discharge Disposition: Home or Self Care 05/12/2024 Travel 05/12/2024 9:00 AM CERTIFIED ADAPTED PHYSICAL EDUCATOR Office Visit [facility] [address] [place] [phone] Abel Sanches MD Traumatic closed displaced fracture of distal end of radius, right, initial encounter (Primary Dx); Acute carpal tunnel syndrome of right wrist 05/11/2024 Orders Only [facility] [address] [place] [address], [place] [phone] Abel Sanches MD Right wrist pain 05/11/2024 Travel 05/08/2024 11:03 PM CERTIFIED ADAPTED PHYSICAL EDUCATOR - 05/09/2024 2:40 AM [facility] Emergency [facility] EMERGENCY [facility]PARTMENT [address] [place] [phone] Dominic Jeong MD Irregularly irregular pulse rhythm; Injury of right wrist, initial encounter Discharge Disposition: Home or Self Care from Last 3 Months Allergies No known active allergies Medications * Be aware that medications may not be up to date on this document. Alwaysverify current medications with the patient. Medication Sig Dispensed Refills Start Date End Date Status HYDROcodone-acetam inophen ([place]) 5-325 MG tabletIndications: Irregularly irregular pulse rhythm,Injury of right wrist, initial encounter Take 1 (one) tablet by mouth every 6 hours as needed for Pain 12 tablet 05/09/2024 Active acetaminophen (Tylenol) 500 MG tablet Take 1 (one) tablet by mouth every 4 hours as needed for Fever or Pain Maximum allowable Acetaminophen amount = 4 Grams (4000 mg) / 24 hours. Active ibuprofen (Motrin) 200 MG tablet Take by mouth every 6 hours as needed for Pain Active lisinopril-hydroCH LOROthiazide (Prinzide; Zestoretic) 20-25 MG tablet Take 1 (one) tablet by mouth once daily Active amLODIPine (Norvasc) 2.5 MG tablet Take 1 (one) tablet by mouth at bedtime Active [place]-3 Fatty Acids (fish oil) 500 MG capsule Take by mouth 2 times daily Active docusate sodium (Colace) 100 MG capsuleIndications :Constipation Take 1 (one) capsule by mouth 2 times daily as needed for Constipation Reasons: Constipation 05/18/2024 Active ibuprofen (Motrin) 400 MG tabletIndications: Fever,Pain Take 1 (one) tablet by mouth every 6 hours as needed for Pain Reasons: Fever, Pain 05/18/2024 Active acetaminophen (TYLENOL) 500 MG tablet Take 2 (two) tablets by mouth every 8 hours as needed for Fever or Pain Maximum allowable Acetaminophen amount = 4 Grams (4000 mg) / 24 hours. 05/18/2024 Active HYDROcodone-acetam inophen ([place]) 5-325 MG tabletIndications: Pain Take 1 (one) tablet by mouth every 4 hours as needed for Pain Reasons: Pain 30 tablet 05/18/2024 Active sennosides (Senna Lax) 8.6 MG tablet Take 1 (one) tablet by mouth 2 times daily as needed for Constipation Take while using narcotic pain medications, then take as needed for constipation 05/18/2024 Active docusate sodium (Colace) 100 MG capsuleIndications :Constipation,Take while using narcotic pain medications. Then take as needed for constipation. Take 1 (one) capsule by mouth once daily Reasons: Constipation, Take while using narcotic pain medications. Then take as needed for constipation. 05/18/2024 Active Social History Tobacco Use Types Packs/Day Years Used Date Smoking Tobacco: Never Smokeless Tobacco: Never Tobacco Cessation:Counseling Given: Not Answered Alcohol Use Standard Drinks/Week Comments Never 0 (1 standard drink = 0.6 oz pur e alcohol) drink once in a while AUDIT-C Answer Date Recorded Q1: How often do you have a drink containing alc ohol? Never 05/18/2024 Average Number of Drinks Not on file 025 Frequency of Binge Drinking Not on file 04/30 PHQ-2 Answer Date Recorded Patient Health Questionnaire-2 Score 0 05/11/2024 Sex and Gender Information Value Date Recorded Sex Assigned at Not on file Gender Identity Not on file Sexual Orientation Not on file Travel History Travel Start Travel End [place] 04/12/2024 05/13/2024 Last Filed Vital Signs Vital Sign Reading Time Taken Comments Blood Pressure 163/66 05/18/2024 1:52 PM CERTIFIED ADAPTED PHYSICAL EDUCATOR Pulse 63 05/18/2024 1:52 PM CERTIFIED ADAPTED PHYSICAL EDUCATOR Temperature 36.4 C (97.5 F) 05/18/2024 1:12 PM CERTIFIED ADAPTED PHYSICAL EDUCATOR Respiratory Rate 16 05/18/2024 1:52 PM CERTIFIED ADAPTED PHYSICAL EDUCATOR Oxygen Saturation 95% 05/18/2024 1:52 PM CERTIFIED ADAPTED PHYSICAL EDUCATOR Inhaled Oxygen Concentration - - Weight 63.5 kg (140 lb) 05/18/2024 9:15 AM CERTIFIED ADAPTED PHYSICAL EDUCATOR Height 167.6 cm (5' 6 ) 05/18/2024 9:15 AM CERTIFIED ADAPTED PHYSICAL EDUCATOR Body Mass Index 22.6 05/18/2024 9:15 AM CERTIFIED ADAPTED PHYSICAL EDUCATOR Plan of Treatment Upcoming Encounters Date Type Department Care Team (Late st Contact Info) Description 07/03/2024 9:00 AM CERTIFIED ADAPTED PHYSICAL EDUCATOR Office Visit [facility] [address] [facility] [place] [address] Abel Sanches MD [address] [phone] Medical Devices Implanted Type Area Attendance Secretary Device Identifier Shelf Expiration Date Model / Serial / Lot Lifenethealth Modlable Emineralized Fibers Implanted:Qty: 1 on 05/18/2024 by Abel Sanches MD at [facility] Right: Wrist 08/23/2027 / ID: [id number] / 2.7 Cortx Screw Implanted:Qty: 1 on 05/18/2024 by Abel Sanches MD at [facility] Right: Wrist .874 / / Distal Radius Plate Implanted:Qty: 1 on 05/18/2024 by Abel Sanches MD at [facility] Right: Wrist .111.630 / / 2.4 Va Locking Screw Implanted:Qty: 1 on 05/18/2024 by Abel Sanches MD at [facility] Right: Wrist .210.120 / / 2.4 Locking Screw Implanted:Qty: 2 on 05/18/2024 by Abel Sanches MD at [facility] Right: Wrist 210.114 / / Screw 2.4mm 18mm T8 Slf-Tap Lck Va Strdr Implanted:Qty: 2 on 05/18/2024 by Abel Sanches MD at [facility] Right: Wrist Synthes [employer] .210.118 / / 2.4 Va Locking Screw Implanted:Qty: 1 on 05/18/2024 by Abel Sanches MD at [facility] Right: Wrist 210.114 / / Explanted Type Area Attendance Secretary Device Identifier Shelf Expiration Date Model / Serial / Lot Screw 2.4mm 14mm T8 Cortx Slf-Tap Strdr Explanted:Qty: 1 on 05/18/2024 at [facility] Right: Wrist Synthes [employer] 201.764 / / 2.4 Va Locking Screen Explanted:Qty: 1 on 05/18/2024 by Abel Sanches MD at [facility] Right: Wrist .210.114 / / 2.7 Cortx Screw Explanted:Qty: 1 on 05/18/2024 by Abel Sanches MD at [facility] Right: Wrist 202.872 / / Procedures Procedure Name Priority Date/Time Associated Diagnosis Comments XR WRIST RIGHT 3VW OR MORE Routine 06/05/2024 9:14 AM CERTIFIED ADAPTED PHYSICAL EDUCATOR Traumatic closed displaced fracture of distal end of radius, right, initial encounter CARDIAC RHYTHM STRIP ORDER 05/20/2024 11:40 PM CERTIFIED ADAPTED PHYSICAL EDUCATOR IMAGING/RADIOLOGY/XR AY RESULTS ORDER 05/20/2024 7:54 PM CERTIFIED ADAPTED PHYSICAL EDUCATOR XR WRIST RIGHT 2VW STAT 05/18/2024 12 :59 PM CERTIFIED ADAPTED PHYSICAL EDUCATOR Pain FL CYNTHIA SURGERY Routine 05/18/2024 11:51 AM CERTIFIED ADAPTED PHYSICAL EDUCATOR Pain PERIPHERAL BLOCK Routine 05/18/2024 10:0 1 AM CERTIFIED ADAPTED PHYSICAL EDUCATOR DE WRIST ARTHROSCOP,RELEASE XVERS LIG 05/18/2024 9:20 AM CERTIFIED ADAPTED PHYSICAL EDUCATOR Diagnosis unknown Special Needs NEEDS MINI C-ARM, SYNTHES--REP. (ANA MARIA # [phone]) AND ARTHREX--REP. (YOVANY # [phone])--BOTH REPS NOTIFIED BY SURGEON PER OFFICE (NU)---05/13 KW -REPS EMAILED 05/13 DE OPTX DSTL RADL X-ARTIC FX/EPIPHYSL SEP 05/18/2024 9:20 AM CERTIFIED ADAPTED PHYSICAL EDUCATOR Diagnosis unknown Special Needs NEEDS MINI C-ARM, SYNTHES--REP. (ANA MARIA # [phone]) AND ARTHREX--REP. (YOVANY # [phone])--BOTH REPS NOTIFIED BY SURGEON PER OFFICE (NU)---05/13 KW -REPS EMAILED 05/13 WC XR WRIST RIGHT 3VW OR MORE Routine 05/12/2024 9:13 AM CERTIFIED ADAPTED PHYSICAL EDUCATOR Right wrist pain CARDIAC EKG ORDER 05/11/2024 11: 34 AM CERTIFIED ADAPTED PHYSICAL EDUCATOR CT WRIST RIGHT WO CONTRAST STAT 05/09/2024 1:00 AM CERTIFIED ADAPTED PHYSICAL EDUCATOR Injury of right wrist, initial encounter XR WRIST RIGHT 2VW STAT 05/09/2024 12 :40 AM CERTIFIED ADAPTED PHYSICAL EDUCATOR Injury of right wrist, initial encounter XR ELBOW RIGHT 2VW STAT 05/08/2024 11 :59 PM CERTIFIED ADAPTED PHYSICAL EDUCATOR Injury of right wrist, initial encounter XR FOREARM RIGHT 2VW OR MORE STAT 05/08/2024 11:59 PM CERTIFIED ADAPTED PHYSICAL EDUCATOR Injury of right wrist, initial encounter XR WRIST RIGHT 3VW OR MORE STAT 05/08/2024 7:28 PM CERTIFIED ADAPTED PHYSICAL EDUCATOR Injury of right wrist, initial encounter COMPREHENSIVE METABOLIC PANEL STAT 05/08/2024 5:10 PM CERTIFIED ADAPTED PHYSICAL EDUCATOR CBC W AUTO DIFFERENTIAL STAT 05/08/2024 5:10 PM CERTIFIED ADAPTED PHYSICAL EDUCATOR EKG 12-LEAD STAT 05/08/2024 5:03 PM CERTIFIED ADAPTED PHYSICAL EDUCATOR Irregularly irregular pulse rhythm from Last 3 Months Results * XR Wrist Right 3Vw or More (06/05/2024 9:14 AM CERTIFIED ADAPTED PHYSICAL EDUCATOR) Only the most recent of3 resultswithin the time period is included. Anatomical Region Laterality Modality Wrist / Hand Computed Radiogr aphy 06/05/2024 9:43 AM CERTIFIED ADAPTED PHYSICAL EDUCATOR Narrative 06/05/2024 9:46 AM CERTIFIED ADAPTED PHYSICAL EDUCATOR PROCEDURE: XR WRIST RIGHT 3VW OR MORE, DATE/TIME OF EXAM: 06/05/2024 9:14 AM, LOCATION [facility] INDICATION: S52.501A: Traumatic closed displaced fracture of distal end of radius, right, initial encounter ADDITIONAL CLINICAL INFORMATION: Ordering Provider Reason For Exam: post op Technologist Note: Additional: COMPARISON: 05/12/2024. FINDINGS/IMPRESSION: Interval volar plate and screw fixation of distal radius comminuted fracture. Bony alignment is near anatomic and hardware is intact. Transverse fracture of the distal ulna is with mild dorsal apex angulation. No calcified callus is visible. Bones remain demineralized. Joint spaces are preserved. Soft tissue swelling improved. This study was interpreted and reported by Dominick Mcclellan MD (attending radiologist) 06/05/2024 9:43 AM. > Interpreting Provider: Dominick Mcclellan MD on 06/05/2024 9:46 AM Procedure Note Dominick Mcclellan MD - 06/05/2024 PROCEDURE: XR WRIST RIGHT 3VW OR MORE, DATE/TIME OF EXAM: 59:14 AM, LOCATION [facility] INDICATION: S52.501A: Traumatic closed displaced fracture of distal end of radius, right, initial encounter ADDITIONAL CLINICAL INFORMATION: Ordering Provider Reason For Exam: post op Technologist Note: Additional: COMPARISON: 05/12/2024. FINDINGS/IMPRESSION: Interval volar plate and screw fixation of distal radius comminuted fracture. Bony alignment is near anatomic and hardware is intact. Transverse fracture of the distal ulna is with mild dorsal apexangulation. No calcified callus is visible. Bones remain demineralized. Joint spaces are preserved. Soft tissue swelling improved. This study was interpreted and reported by Dominick Mcclellan MD (attending radiologist) 06/05/2024 9:43 AM. > Interpreting Provider: Dominick Mcclellan MD on 06/05/2024 9:46 AM Abel Sanches MD DIAGNOSTIC IMAGING O RDERABLES * CARDIAC RHYTHM STRIP ORDER (05/20/2024 11:40 PM CERTIFIED ADAPTED PHYSICAL EDUCATOR) Narrative 05/20/2024 11:40 PM CERTIFIED ADAPTED PHYSICAL EDUCATOR Ordered by an unspecified provider. Scanned Document CARDIAC SERVICES ORD ERABLES * IMAGING RADIOLOGY XRAY RESULTS ORDER (05/20/2024 7:54 PM CERTIFIED ADAPTED PHYSICAL EDUCATOR) Anatomical Region Laterality Modality Other Narrative 05/20/2024 7:54 PM CERTIFIED ADAPTED PHYSICAL EDUCATOR Ordered by an unspecified provider. Scanned Document IMAGING * XR Wrist Right 2Vw (05/18/2024 12:59 PM CERTIFIED ADAPTED PHYSICAL EDUCATOR) Only the most recent of2 resultswithin the time period is included. Anatomical Region Laterality Modality Wrist / Hand Radiographic Rachel ging 05/18/2024 1:04 PM CERTIFIED ADAPTED PHYSICAL EDUCATOR Impressions 05/18/2024 1:10 PM CERTIFIED ADAPTED PHYSICAL EDUCATOR IMPRESSION: Postop changes. Edited by Yolanda Thakur on 05/18/2024 1:05 PM > Interpreting Provider: Scar Quach MD on 05/18/2024 1:10 PM Narrative 05/18/2024 1:10 PM CERTIFIED ADAPTED PHYSICAL EDUCATOR PROCEDURE: XR WRIST RIGHT 2VW DATE/TIME OF EXAM: 05/18/2024 12:59 PM CLINICAL INFORMATION: None relevant/not provided if blank. Indication: R52: Pain, unspecified FINDINGS: Views of the wrist through a plaster splint show plate and screw stabilization of the distal radius. Procedure Note Scar Quach MD - 05/18/2024 PROCEDURE: XR WRIST RIGHT 2VW DATE/TIME OF EXAM: 05/18/2024 12:59 PM CLINICAL INFORMATION: None relevant/not provided if blank. Indication: R52: Pain, unspecified FINDINGS: Views of the wrist through a plaster splint show plate and screw stabilization of the distal radius. IMPRESSION: Postop changes. Edited by Yolanda Thakur on 05/18/2024 1:05 PM > Interpreting Provider: Scar Quach MD on 05/18/2024 1:10 PM Abel Sanches MD DIAGNOSTIC IMAGING O RDERABLES * FL Cynthia Surgery (05/18/2024 11:51 AM CERTIFIED ADAPTED PHYSICAL EDUCATOR) Narrative [facility] - 05/19/2024 11:51 AM CERTIFIED ADAPTED PHYSICAL EDUCATOR For details of this study, please see the providers note. Abel Sanches MD FLUOROSCOPY ORDERABL ES [facility] [address] [place] [address] * Peripheral Nerve Block (05/18/2024 10:01 AM CERTIFIED ADAPTED PHYSICAL EDUCATOR) Narrative Shahab Lange DO - 05/18/2024 10:01 AM CERTIFIED ADAPTED PHYSICAL EDUCATOR Shahab Lange DO 05/18/2024 10:02 AM Peripheral Nerve Block Procedure: Peripheral Nerve Block Patient Location: Pre-op Preprocedure Section: Indications: at surgeon's request and postop pain management. Pre-anesthetic Checklist: Patient identified, IV Checked, Site examined and clear, Risks and benefits discussed, Surgical consent verified, Monitors and equipment, Time-out performed, Informed consent obtained, Pre-op evaluation done, Questions answered/anesthesia questions answered, Allergies reviewed and Removal hand/wrist jewelry Monitors: BP and Pulse Ox. Patient Condition: sedated, meaningful contact maintained throughout procedure Patient Position: supine Patient Sedated? Yes Sedation Type: mild Sedation Agents: midazolam (VERSED) injection - Intravenous 2 mg - 05/18/2024 9:56:00 AM Procedure Section Laterality: right Block Performed: supraclavicular Prep: Chloraprep Strerile Field: gloves and hat/cap Skin localized with: lidocaine (XYLOCAINE) 1 % injection - Infiltration 1 mL - 05/18/2024 9:56:00 AM Needle Type: Echogenic insultaed Needle Gauge: 22 Needle Length: 80 mm Catheter? No Ultrasound Guided? Yes Technique: in plane Visualization: Preliminary scan performed, Important anatomical structures identified, Needle tip visualized throughout the procedure, Target identified, No intraneural or intravascular puncture occurred, Ultrasound image in chart, Local visualized surrounding nerve on ultrasound and Hydrodissection utilized Injection was made incrementally with constant monitoring and aspirations every 5 mL's Block Agents or Additives used? Yes Block agents used: bupivacaine 0.5% - EPINEPHrine 1:200,000 (PF) injection - Infiltration 20 mL - 05/18/2024 9:58:00 AM Procedure Tolerance: tolerated well Staff Section Anesthesia Provider: Shahab Lange DO, Performed the procedure Shahab Lange DO GENERAL ANESTHESIA O RDERABLES * CARDIAC EKG ORDER (05/11/2024 11:34 AM CERTIFIED ADAPTED PHYSICAL EDUCATOR) Narrative 05/11/2024 11:34 AM CERTIFIED ADAPTED PHYSICAL EDUCATOR Ordered by an unspecified provider. Scanned Document CARDIAC SERVICES ORD ERABLES * CT Wrist Right Wo Contrast (05/09/2024 1:00 AM CERTIFIED ADAPTED PHYSICAL EDUCATOR) Anatomical Region Laterality Modality Wrist / Hand Computed Tomogra phy 05/09/2024 1:20 AM CERTIFIED ADAPTED PHYSICAL EDUCATOR Impressions 05/09/2024 9:55 AM CERTIFIED ADAPTED PHYSICAL EDUCATOR IMPRESSION: 1.Interval closed reduction and splinting of the right wrist. There is redemonstration of an acute, highly comminuted distal radius fracture with intra-articular extension to the radioulnar joint. There is slightly improved osseous alignment following closed reduction with persistent overriding fracture fragments. There is also redemonstration of an acute, minimally displaced transverse fracture of the distal ulna which appears similar in alignment compared to prior. 2.Soft tissue swelling with subcutaneous emphysema in the dorsal soft tissues, compatible with an open fracture. 3.Mild degenerative changes in the carpal bones. Report dictated by Joe Lopes M.D. (Interventional rn residential) 05/09/2024 1:26 AM IJailyn MD have personally reviewed and interpreted this examination/study. > Interpreting Provider: Jailyn Espino MD on 05/09/2024 9:55 AM Narrative 05/09/2024 9:55 AM CERTIFIED ADAPTED PHYSICAL EDUCATOR PROCEDURE: CT WRIST RIGHT WO CONTRAST, DATE/TIME OF EXAM: 05/09/2024 1:01 AM, LOCATION [facility] INDICATION: S69.91XA: Injury of right wrist, initial encounter ADDITIONAL CLINICAL INFORMATION: Ordering Provider Reason For Exam: fx COMPARISON: Same day right wrist radiographs TECHNIQUE: Axial CT images of the right wrist without contrast. Coronal and sagittal reformatted images were submitted. FINDINGS: Bones: There has been interval closed reduction and splinting of the right wrist. There is redemonstration of a highly comminuted distal radius fracture with intra-articular extension to the radial ulnar joint. There is slightly less overriding of the fractured ossific fragments compared to prior prereduction radiographs. Additionally, there is redemonstration of an acute, mildly displaced transverse fracture of the distal ulna. Mild subchondral cyst formation at the triscaphe joint and in the base of the lunate. The scaphoid lunate distance is slightly increased. Soft tissues: There is diffuse soft tissue edema in the wrist soft tissues, particularly involving the dorsal soft tissues. There also scattered foci of subcutaneous emphysema in the dorsal soft tissues compatible with an open fracture. Overlying splinting material is in place. Procedure Note Cathy Espino MD - 05/09/2024 PROCEDURE: CT WRIST RIGHT WO CONTRAST, DATE/TIME OF EXAM: 51:01 AM, LOCATION [facility] INDICATION: S69.91XA: Injury of right wrist, initial encounter ADDITIONAL CLINICAL INFORMATION: Ordering Provider Reason For Exam: fx COMPARISON: Same day right wrist radiographs TECHNIQUE: Axial CT images of the right wrist without contrast. Coronaland sagittal reformatted images were submitted. FINDINGS: Bones: There has been interval closed reduction and splinting of theright wrist. There is redemonstration of a highly comminuted distal radius fracture with intra-articular extension to the radial ulnar joint. Thereis slightly less overriding of the fractured ossific fragments compared to prior prereduction radiographs. Additionally, there is redemonstrationof an acute, mildly displaced transverse fracture of the distal ulna. Mild subchondral cyst formation at the triscaphe joint and in the base of the lunate. The scaphoid lunate distance is slightly increased. Soft tissues: There is diffuse soft tissue edema in the wrist softtissues, particularly involving the dorsal soft tissues. There also scatteredfoci of subcutaneous emphysema in the dorsal soft tissues compatible with an open fracture. Overlying splinting material is in place. IMPRESSION: 1.Interval closed reduction and splinting of the right wrist. There is redemonstration of an acute, highly comminuted distal radius fracturewith intra-articular extension to the radioulnar joint. There is slightly improved osseous alignment following closed reduction with persistent overriding fracture fragments. There is also redemonstration of anacute, minimally displaced transverse fracture of the distal ulna which appears similar in alignment compared to prior. 2.Soft tissue swelling with subcutaneous emphysema in the dorsal soft tissues, compatible with an open fracture. 3.Mild degenerative changes in the carpal bones. Report dictated by Joe Lopes M.D. (Interventional rn residential) 05/09/2024 1:26 AM Jailyn Bonner MD have personally reviewed and interpreted this examination/study. > Interpreting Provider: Jailyn Espino MD on 05/09/2024 9:55 AM Dominic Jeong MD CT ORDERABLES * XR Elbow Right 2Vw (05/08/2024 11:59 PM CERTIFIED ADAPTED PHYSICAL EDUCATOR) Anatomical Region Laterality Modality Upper Extremity Digital Radiogra phy 05/09/2024 12:0 8 AM CERTIFIED ADAPTED PHYSICAL EDUCATOR Impressions 05/09/2024 2:06 PM CERTIFIED ADAPTED PHYSICAL EDUCATOR IMPRESSION: Fractures of the distal radius and ulna as previously described. > Dictated by Joel Craft DO, (residential interior designer). Jailyn Bonner MD have personally reviewed and interpreted this examination/study. > Interpreting Provider: Jailyn Espino MD on 05/09/2024 2:06 PM Narrative 05/09/2024 2:06 PM CERTIFIED ADAPTED PHYSICAL EDUCATOR PROCEDURE: XR FOREARM RIGHT 2VW OR MORE, XR ELBOW RIGHT 2VW, DATE/TIME OF EXAM: 05/08/2024 11:59 PM, LOCATION [facility] INDICATION: S69.91XA: Injury of right wrist, initial encounter ADDITIONAL CLINICAL INFORMATION: Ordering Provider Reason For Exam: Fracture? Technologist Note: Additional: None. COMPARISON: Right wrist x-ray obtained on 05/08/2024 at 7:23 PM. FINDINGS: Right forearm: Mildly displaced fractures of the distal radius and ulna are redemonstrated. No fracture of the proximal radius or ulna. The elbow and wrist joints are in normal alignment. There is soft tissue swelling of the forearms. Right elbow: There is no fracture or osseous abnormality. The elbow joint is in normal alignment. The soft tissues are normal. Procedure Note Cathy Espino MD - 05/09/2024 PROCEDURE: XR FOREARM RIGHT 2VW OR MORE, XR ELBOW RIGHT 2VW, DATE/TIMEOF EXAM: 05/08/2024 11:59 PM, LOCATION [facility] INDICATION: S69.91XA: Injury of right wrist, initial encounter ADDITIONAL CLINICAL INFORMATION: Ordering Provider Reason For Exam: Fracture? Technologist Note: Additional: None. COMPARISON: Right wrist x-ray obtained on 05/08/2024 at 7:23 PM. FINDINGS: Right forearm: Mildly displaced fractures of the distal radius and ulna are redemonstrated. No fracture of the proximal radius or ulna. The elbowand wrist joints are in normal alignment. There is soft tissue swelling ofthe forearms. Right elbow: There is no fracture or osseous abnormality. The elbow joint is innormal alignment. The soft tissues are normal. IMPRESSION: Fractures of the distal radius and ulna as previously described. > Dictated by Joel Craft DO (residential interior designer). Jailyn Bonner MD have personally reviewed and interpreted this examination/study. > Interpreting Provider: Jailyn Espino MD on 05/09/2024 2:06 PM Dominic Jeong MD DIAGNOSTIC IMAGING O RDERABLES * XR Forearm Right 2Vw or More (05/08/2024 11:59 PM CERTIFIED ADAPTED PHYSICAL EDUCATOR) Anatomical Region Laterality Modality Upper Extremity Digital Radiogra phy 05/09/2024 12:0 8 AM CERTIFIED ADAPTED PHYSICAL EDUCATOR Impressions 05/09/2024 2:06 PM CERTIFIED ADAPTED PHYSICAL EDUCATOR IMPRESSION: Fractures of the distal radius and ulna as previously described. > Dictated by Joel Craft DO (residential interior designer). Jailyn Bonner MD have personally reviewed and interpreted this examination/study. > Interpreting Provider: Jailyn Espino MD on 05/09/2024 2:06 PM Narrative 05/09/2024 2:06 PM CERTIFIED ADAPTED PHYSICAL EDUCATOR PROCEDURE: XR FOREARM RIGHT 2VW OR MORE, XR ELBOW RIGHT 2VW, DATE/TIME OF EXAM: 05/08/2024 11:59 PM, LOCATION [facility] INDICATION: S69.91XA: Injury of right wrist, initial encounter ADDITIONAL CLINICAL INFORMATION: Ordering Provider Reason For Exam: Fracture? Technologist Note: Additional: None. COMPARISON: Right wrist x-ray obtained on 05/08/2024 at 7:23 PM. FINDINGS: Right forearm: Mildly displaced fractures of the distal radius and ulna are redemonstrated. No fracture of the proximal radius or ulna. The elbow and wrist joints are in normal alignment. There is soft tissue swelling of the forearms. Right elbow: There is no fracture or osseous abnormality. The elbow joint is in normal alignment. The soft tissues are normal. Procedure Note Cathy Espino MD - 05/09/2024 PROCEDURE: XR FOREARM RIGHT 2VW OR MORE, XR ELBOW RIGHT 2VW, DATE/TIMEOF EXAM: 05/08/2024 11:59 PM, LOCATION [facility] INDICATION: S69.91XA: Injury of right wrist, initial encounter ADDITIONAL CLINICAL INFORMATION: Ordering Provider Reason For Exam: Fracture? Technologist Note: Additional: None. COMPARISON: Right wrist x-ray obtained on 05/08/2024 at 7:23 PM. FINDINGS: Right forearm: Mildly displaced fractures of the distal radius and ulna are redemonstrated. No fracture of the proximal radius or ulna. The elbowand wrist joints are in normal alignment. There is soft tissue swelling ofthe forearms. Right elbow: There is no fracture or osseous abnormality. The elbow joint is innormal alignment. The soft tissues are normal. IMPRESSION: Fractures of the distal radius and ulna as previously described. > Dictated by Joel Craft DO, (residential interior designer). Jailyn Bonner MD have personally reviewed and interpreted this examination/study. > Interpreting Provider: Jailyn Espino MD on 05/09/2024 2:06 PM Dominic Jeong MD DIAGNOSTIC IMAGING O RDERABLES * (ABNORMAL) CBC W AUTO DIFFERENTIAL (05/08/2024 5:10 PM CERTIFIED ADAPTED PHYSICAL EDUCATOR) WBC 8.7 4.0 - 10.7 x10E9/L 05/08/2024 5:30 PM [facility] RBC Count 4.67 3.90 - 5.20 x10E12/L 05/08/2024 5:30 PM [facility] Hemoglobin 14.6 11.9 - 15.8 g/dL 05/08/2024 5:30 PM [facility] Hematocrit 43.9 34.8 - 46.1 % 05/08/2024 5:30 PM [facility] MCV 94.0 80.0 - 98.0 fL 05/08/2024 5:30 PM [facility] MCH 31.3 26.7 - 33.6 pg 05/08/2024 5:30 PM [facility] MCHC 33.3 31.7 - 36.3 g/dL 05/08/2024 5:30 PM [facility] RDW-CV 12.8 11.3 - 14.8 % 05/08/2024 5:30 PM [facility] Platelet Count 249 150 - 420 x10E9/L 05/08/2024 5:30 PM [facility] MPV 10.6 7.8 - 11.4 fL 05/08/2024 5:30 PM [facility] Neutrophil % 78.1(H) 41.0 - 74.0 % 05/08/2024 5:30 PM [facility] Lymphocyte % 16.6(L) 17.0 - 47.0 % 05/08/2024 5:30 PM [facility] Monocyte % 4.7 3.0 - 11.0 % 05/08/2024 5:30 PM [facility] Eosinophil % 0.1 0.0 - 7.0 % 05/08/2024 5:30 PM [facility] Basophil % 0.3 0.0 - 1.6 % 05/08/2024 5:30 PM [facility] Immature Granulocytes % 0.2 0.0 - 1.0 % 05/08/2024 5:30 PM [facility] Neutrophil Absolute 6.80 1.60 - 7.50 x10E9/L 05/08/2024 5:30 PM [facility] Lymphocyte Absolute 1.45 1.00 - 4.40 x10E9/L 05/08/2024 5:30 PM [facility] Monocyte Absolute 0.41 0.15 - 1.00 x10E9/L 05/08/2024 5:30 PM [facility] Eosinophil Absolute 0.01 0.00 - 0.60 x10E9/L 05/08/2024 5:30 PM [facility] Basophil Absolute 0.03 0.00 - 0.13 x10E9/L 05/08/2024 5:30 PM [facility] Blood BLOOD SPECIMEN / Unknown Venipuncture / Unknown 05/08/2024 5:10 PM CERTIFIED ADAPTED PHYSICAL EDUCATOR 05/08/2024 5:26 PM [facility] Vanessa Avery MARKETING INTELLIGENCE MANAGER-PUNCH OPERATOR LAB - HEMATO LOGY ORDERABLES [facility] [address] [place] [address], [facility] [phone] * (ABNORMAL) COMPREHENSIVE METABOLIC PANEL (05/08/2024 5:10 PM [facility]) BUN 19 7 - 26 mg/dL 05/08/2024 5:59 PM [facility] Creatinine 0.70 0.56 - 0.96 mg/dL 05/08/2024 5:59 PM [facility] Sodium 143 136 - 145 mmol/L 05/08/2024 5:59 PM [facility] Potassium 3.8 3.5 - 4.5 mmol/L 05/08/2024 5:59 PM [facility] Chloride 101 98 - 107 mmol/L 05/08/2024 5:59 PM [facility] CO2 30(H) 22 - 29 mmol/L 05/08/2024 5:59 PM [facility] Glucose 109(H) 70 - 99 mg/dL 05/08/2024 5:59 PM [facility] Calcium 9.5 8.4 - 10.2 mg/dL 05/08/2024 5:59 PM [facility] Protein Total 6.7 6.0 - 8.3 g/dL 05/08/2024 5:59 PM [facility] Albumin 4.0 3.4 - 5.0 g/dL 05/08/2024 5:59 PM [facility] Bilirubin Total 0.4 0.2 - 1.2 mg/dL 05/08/2024 5:59 PM [facility] Alkaline Phosphatase 81 40 - 150 U/L 05/08/2024 5:59 PM [facility] ALT 15 5 - 55 U/L 05/08/2024 5:59 PM [facility] AST 21 5 - 34 U/L 05/08/2024 5:59 PM [facility] Anion Gap 12 6 - 16 05/08/2024 5:59 PM [facility] BUN/Creatinine Ratio 27(H) 7 - 23 05/08/2024 5:59 PM [facility] Osmolality Calculated 299(H) 275 - 295 mOsm/kg 05/08/2024 5:59 PM [facility] Albumin/Globulin Ratio 1.5 1.1 - 2.3 05/08/2024 5:59 PM [facility] eGFR by CKD-EPI 85(L) >=90 mL/min/1.7 3 m2 05/08/2024 5:59 PM [facility] Blood BLOOD SPECIMEN / Unknown Venipuncture / Unknown 05/08/2024 5:10 PM CERTIFIED ADAPTED PHYSICAL EDUCATOR 05/08/2024 5:26 PM CERTIFIED ADAPTED PHYSICAL EDUCATOR Vanessa Avery APRN-PUNCH OPERATOR LAB - CHEMIS TRY ORDERABLES [facility] [address] [id number], [facility] [phone] * EKG 12-LEAD (05/08/2024 5:03 PM CERTIFIED ADAPTED PHYSICAL EDUCATOR) Ventricular Rate 85 BPM [facility] MUSE Atrial Rate 85 BPM [facility] M[facility] P-R Interval 140 ms [facility] QRS Duration ms 82 ms [facility] M[facility] Q-T Interval ms 380 ms [facility] M[facility] QTC Calculation (Bezet) 452 ms [facility] MUSE Calculated P Borger 74 degrees SL MUSE Calculated R Borger 19 degrees [facility] MUSE Calculated T Borger -5 degrees [facility] MUSE Interpretation EKG SINUS RHYTHM WITH PREMATURE ATRIAL COMPLEXES NONSPECIFIC ST AND T WAVE ABNORMALITY ABNORMAL ECG NO PREVIOUS ECGS AVAILABLE Confirmed by ELIAS WEBER, SADAF ([id number]) on 05/10/2024 11:18:39 AM [facility] MUSE 05/08/2024 5:03 PM CERTIFIED ADAPTED PHYSICAL EDUCATOR 05/10/2024 11:18 AM CERTIFIED ADAPTED PHYSICAL EDUCATOR Vanessa Avery APRN-PUNCH OPERATOR ECG ORDERABL ES [facility] MUSE from Last 3 Months Care Teams Luster Applicator Relationship Specialty Start Date End Date Quan Arriaza MD [address] [place] [address] PCP - General Internal Medicine 05/02/24
--- OUTSIDE RECORDS SUMMARY | 2024-06-12 14:51 | XMS_ITS | Encounter Summary ---
Author Organization [facility] Address [address] [place] [address] Care Team Providers Care Claims Investigator Name Role Phone Quan Arriaza MD Primary Care Provider [phone] Encounter Details Date Type Department Care Team (Late st Contact Info) Description 06/10/2024 Orders Only [facility] [address] [facility] [place] [address] Abel Sanches MD [facility] [phone] Closed fracture of right distal radius and ulna, with routine healing, subsequent encounter Social History Tobacco Use Types Packs/Day Years Used Date Smoking Tobacco: Never Smokeless Tobacco: Never Alcohol Use Standard Drinks/Week Comments Never 0 [...] file Travel History Travel Start Travel End [place] 04/12/2024 05/13/2024 documented as of this encounter Plan of Treatment Upcoming Encounters Date Type Department Care Team (Late st Contact Info) Description 07/03/2024 9:00 AM PLC ENGINEER Office Visit [facility] [address] [facility] [place] [address] Abel Sanches MD [facility] [phone] Scheduled Orders Name Type Priority Associated Diagnoses Orde r Schedule XR Wrist Right 3Vw or More Imaging Routine Closed fracture of right distal radius and ulna, with routine healing, subsequent encounter 1 Occurrences starting 06/10/2024 until 06/10/2025 documented as of this encounter Visit Diagnoses Diagnosis Closed fracture of right distal radius and ulna, with routine healing, subsequent encounter- Primary documented in this encounter Care Teams Claims Investigator Relationship Specialty Start Date End Date Quan Arriaza MD [address] [place] [address] PCP - General Internal Medicine 05/02/24 documented as of this encounter
--- OUTSIDE RECORDS SUMMARY | 2024-06-12 14:51 | XMS_ITS | Patient Health Summary ---
Author Organization [facility] Address [address] [place] [address] Care Team Providers Care Manager Of Pmo Name Role Phone Quan Arriaza MD Primary Care Provider [phone] Note from [facility],non-owned Affiliates and Associated Physician Practices is amultiple site organization consisting of ambulatory clinics and hospital sitesin [place], [place], [place] and [place]. This disclosure is being madepursuant to the Care Everywhere program and may not contain all information available regarding this patient. Last updated 18.[facility] Allergies No known active allergies Medications * Be aware that medications may not be up to date on this document. Alwaysverify current medications with the patient. * HYDROcodone-acetaminophen (Groton) 5-325 MG tablet(Started 05/09/2024) Take 1 (one) tablet by mouth every 6 hours as needed for Pain * acetaminophen (Tylenol) 500 MG tablet Take 1 (one) tablet by mouth every 4 hours as needed for Fever or Pain Maximum allowable Acetaminophen amount = 4 Grams (4000 mg) / 24 hours. * ibuprofen (Motrin) 200 MG tablet Take by mouth every 6 hours as needed for Pain * lisinopril-hydroCHLOROthiazide (Prinzide; Zestoretic) 20-25 MG tablet Take 1 (one) tablet by mouth once daily * amLODIPine (Norvasc) 2.5 MG tablet Take 1 (one) tablet by mouth at bedtime * [place]-3 Fatty Acids (fish oil) 500 MG capsule Take by mouth 2 times daily * docusate sodium (Colace) 100 MG capsule(Started 05/18/2024) Take 1 (one) capsule by mouth 2 times daily as needed for Constipation Reasons: Constipation * ibuprofen (Motrin) 400 MG tablet(Started 05/18/2024) Take 1 (one) tablet by mouth every 6 hours as needed for Pain Reasons: Fever, Pain * acetaminophen (TYLENOL) 500 MG tablet(Started 05/18/2024) Take 2 (two) tablets by mouth every 8 hours as needed for Fever or Pain Maximum allowable Acetaminophen amount = 4 Grams (4000 mg) / 24 hours. * HYDROcodone-acetaminophen (Groton) 5-325 MG tablet(Started 05/18/2024) Take 1 (one) tablet by mouth every 4 hours as needed for Pain Reasons: Pain * sennosides (Senna Lax) 8.6 MG tablet(Started 05/18/2024) Take 1 (one) tablet by mouth 2 times daily as needed for Constipation Take while using narcotic pain medications, then take as needed for constipation * docusate sodium (Colace) 100 MG capsule(Started 05/18/2024) Take 1 (one) capsule by mouth once daily Reasons: Constipation, Take while using narcotic pain medications. Then take as needed for constipation. Social History Tobacco Use Types Packs/Day Years [...] file Travel History Travel Start Travel End [place] 04/12/2024 05/13/2024 Last Filed Vital Signs Vital Sign Reading Time Taken Comments Blood Pressure 163/66 05/18/2024 1:52 PM D[facility]ISH[facility] Pulse 63 05/18/2024 1:52 PM [employer] [facility] Temperature 36.4 C (97.5 F) 05/18/2024 1:12 PM [facility] [facility] Respiratory Rate 16 05/18/2024 1:52 PM [facility] [facility] Oxygen Saturation 95% 05/18/2024 1:52 PM [facility]ER Inhaled Oxygen Concentration - - Weight 63.5 kg (140 lb) 05/18/2024 9:15 AM DIE POLISHER Height 167.6 cm (5' 6 ) 05/18/2024 9:15 AM D[employer]ISHER Body Mass Index 22.6 05/18/2024 9:15 AM DIE POLISHER Medical Devices Implanted Type Area Derrick Barge Operator Device Identifier Shelf Expiration Date Model / Serial / Lot Lifenethealth Modlable Emineralized Fibers Implanted:Qty: 1 on 05/18/2024 by Abel Sanches MD at [facility] [place] Right: Wrist 08/23/2027 BL-1800-01 / ID: [id number] / 2.7 Cortx Screw Implanted:Qty: 1 on 05/18/2024 by Abel Sanches MD at [facility] [place] Right: Wrist 874 / / Distal Radius Plate Implanted:Qty: 1 on 05/18/2024 by Abel Sanches MD at [facility] [place] Right: Wrist .111.630 / / 2.4 Va Locking Screw Implanted:Qty: 1 on 05/18/2024 by Abel Sanches MD at [facility] [place] Right: Wrist .210.120 / / 2.4 Locking Screw Implanted:Qty: 2 on 05/18/2024 by Abel Sanches MD at [facility] [place] Right: Wrist 210.114 / / Screw 2.4mm 18mm T8 Slf-Tap Lck Va Strdr Implanted:Qty: 2 on 05/18/2024 by Abel Sanches MD at [facility] [place] Right: Wrist Synthes Usa .210.118 / / 2.4 Va Locking Screw Implanted:Qty: 1 on 05/18/2024 by Abel Sanches MD at [facility] [place] Right: Wrist .210.114 / / Explanted Type Area Derrick Barge Operator Device Identifier Shelf Expiration Date Model / Serial / Lot Screw 2.4mm 14mm T8 Cortx Slf-Tap Strdr Explanted:Qty: 1 on 05/18/2024 at [facility] [place] Right: Wrist Synthes Usa [id number] / / 2.4 Va Locking Screen Explanted:Qty: 1 on 05/18/2024 by Abel Sanches MD at [facility] [place] Right: Wrist 02.210.114 / / 2.7 Cortx Screw Explanted:Qty: 1 on 05/18/2024 by Abel Sanches MD at [facility] [place] Right: Wrist 202.872 / / Procedures * XR WRIST RIGHT 3VW OR MORE(Performed 06/05/2024) Performed for Traumatic closed displaced fracture of distal end of radius, right, initial encounter * CARDIAC RHYTHM STRIP ORDER(Performed 05/20/2024) * IMAGING/RADIOLOGY/XRAY RESULTS ORDER(Performed 05/20/2024) * XR WRIST RIGHT 2VW(Performed 05/18/2024) Performed for Pain * FL CYNTHIA SURGERY(Performed 05/18/2024) Performed for Pain * PERIPHERAL BLOCK(Performed 05/18/2024) * AL WRIST ARTHROSCOP,RELEASE XVERS LIG(Performed 05/18/2024) Performed for Diagnosis unknown * AL OPTX DSTL RADL X-ARTIC FX/EPIPHYSL SEP(Performed 05/18/2024) Performed for Diagnosis unknown * XR WRIST RIGHT 3VW OR MORE(Performed 05/12/2024) Performed for Right wrist pain * CARDIAC EKG ORDER(Performed 05/11/2024) * CT WRIST RIGHT WO CONTRAST(Performed 05/09/2024) Performed for Injury of right wrist, initial encounter * XR WRIST RIGHT 2VW(Performed 05/09/2024) Performed for Injury of right wrist, initial encounter * XR ELBOW RIGHT 2VW(Performed 05/08/2024) Performed for Injury of right wrist, initial encounter * XR FOREARM RIGHT 2VW OR MORE(Performed 05/08/2024) Performed for Injury of right wrist, initial encounter * XR WRIST RIGHT 3VW OR MORE(Performed 05/08/2024) Performed for Injury of right wrist, initial encounter * COMPREHENSIVE METABOLIC PANEL(Performed 05/08/2024) * CBC W AUTO DIFFERENTIAL(Performed 05/08/2024) * EKG 12-LEAD(Performed 05/08/2024) Performed for Irregularly irregular pulse rhythm Results * XR Wrist Right 3Vw or More (06/05/2024 9:14 AM DIE POLISHER) Only the most recent of3 resultswithin the time period is included. Anatomical Region Laterality Modality Wrist / Hand Computed Radiogr aphy 06/05/2024 9:43 AM [facility]ER Narrative 06/05/2024 9:46 AM D[facility]ISHER PROCEDURE: XR WRIST RIGHT 3VW OR MORE, DATE/TIME OF EXAM: 06/05/2024 9:14 AM, LOCATION [facility] INDICATION: S52.501A: Traumatic closed displaced fracture of [...] MORE, DATE/TIME OF EXAM: 59:14 AM, LOCATION [facility] INDICATION: S52.501A: Traumatic closed displaced fracture of [...] CARDIAC RHYTHM STRIP ORDER (05/20/2024 11:40 PM DIE [facility]ISHER) Narrative 05/20/2024 11:40 PM [facility]ISHER Ordered by an unspecified provider. Scanned Document CARDIAC SERVICES ORD ERABLES * IMAGING RADIOLOGY XRAY RESULTS ORDER (05/20/2024 7:54 PM D[employer] [facility]ISHER) Anatomical Region Laterality Modality Other Narrative 05/20/2024 7:54 PM [employer]ER Ordered by an unspecified provider. Scanned Document IMAGING * XR Wrist Right 2Vw (05/18/2024 12:59 PM DIE POLISHER) Only the most recent of2 resultswithin the time period is included. Anatomical Region Laterality Modality Wrist / Hand Radiographic Rachel ging 05/18/2024 1:04 PM [facility] [facility] Impressions 05/18/2024 1:10 PM [facility] [facility]ER IMPRESSION: Postop changes. Edited by Yolanda Thakur on 05/18/2024 1:05 PM > Interpreting Provider: Scar Quach MD on 05/18/2024 1:10 PM Narrative 05/18/2024 1:10 PM [facility] PROCEDURE: XR WRIST RIGHT 2VW DATE/TIME OF [...] * FL Cynthia Surgery (05/18/2024 11:51 AM DIE POLISHER) Narrative [facility] - 05/19/2024 11:51 AM DIE POLISHER For details of this study, please see the providers note. Abel Sanches MD FLUOROSCOPY ORDERABL ES [facility] [address] [place] [address] * Peripheral Nerve Block (05/18/2024 10:01 AM D[facility]ISHER) Narrative Shahab Lange DO - 05/18/2024 10:01 AM [facility] [employer]ER Shahab Lange DO 05/18/2024 10:02 AM Peripheral [...] * CARDIAC EKG ORDER (05/11/2024 11:34 AM DIE POLISHER) Narrative 05/11/2024 11:34 AM [facility]ER Ordered by an unspecified provider. Scanned Document CARDIAC SERVICES ORD ERABLES * CT Wrist Right Wo Contrast (05/09/2024 1:00 AM D[employer]ISHER) Anatomical Region Laterality Modality Wrist / Hand Computed Tomogra phy 05/09/2024 1:20 AM [facility] [facility]ER Impressions 05/09/2024 9:55 AM [facility] [facility]ISHER IMPRESSION: 1.Interval closed reduction and splinting of [...] Report dictated by Joe Lopes M.D. (Interventional vice president) 05/09/2024 1:26 AM IJailyn MD have personally reviewed and interpreted this examination/study. > Interpreting Provider: Jailyn Espino MD on 05/09/2024 9:55 AM Narrative 05/09/2024 9:55 AM [facility]ER PROCEDURE: CT WRIST RIGHT WO CONTRAST, DATE/TIME OF EXAM: 05/09/2024 1:01 AM, LOCATION [facility] INDICATION: S69.91XA: Injury of right wrist, initial [...] WRIST RIGHT WO CONTRAST, DATE/TIME OF EXAM: :01 AM, LOCATION [facility] INDICATION: S69.91XA: Injury of right wrist, initial [...] Report dictated by Joe Lopes M.D. (Interventional vice president) 05/09/2024 1:26 AM Jailyn Bonner MD have personally reviewed and interpreted this examination/study. > Interpreting Provider: Jailyn Espino MD on 05/09/2024 9:55 AM [address]ic Jeong MD CT ORDERABLES * XR Elbow Right 2Vw (05/08/2024 11:59 PM DIE POLISHER) Anatomical Region Laterality Modality Upper Extremity Digital Radiogra phy 05/09/2024 12:0 8 AM [employer]ER Impressions 05/09/2024 2:06 PM D[employer]ISHER IMPRESSION: Fractures of the distal radius and ulna as previously described. > Dictated by Joel Craft DO, (residential roofer helper). Jailyn Bonner MD have personally reviewed and interpreted this examination/study. > Interpreting Provider: Jailyn Espino MD on 05/09/2024 2:06 PM Narrative 05/09/2024 2:06 PM [employer]ER PROCEDURE: XR FOREARM RIGHT 2VW OR MORE, XR ELBOW RIGHT 2VW, DATE/TIME OF EXAM: 05/08/2024 11:59 PM, LOCATION [facility] INDICATION: S69.91XA: Injury of right wrist, initial [...] 2VW, DATE/TIMEOF EXAM: 05/08/2024 11:59 PM, LOCATION [facility] INDICATION: S69.91XA: Injury of right wrist, initial [...] > Dictated by Joel Craft DO (residential roofer helper). Jailyn Bonner MD have personally reviewed and interpreted this examination/study. > Interpreting Provider: Jailyn Espino MD on 05/09/2024 2:06 PM Dominic Jeong MD DIAGNOSTIC IMAGING O RDERABLES * XR Forearm Right 2Vw or More (05/08/2024 11:59 PM DIE POLISHER) Anatomical Region Laterality Modality Upper Extremity Digital Radiogra phy 05/09/2024 12:0 8 AM DIE POLISHER Impressions 05/09/2024 2:06 PM D[employer] POLISHER IMPRESSION: Fractures of the distal radius and ulna as previously described. > Dictated by Joel Craft DO (residential roofer helper). Jailyn Bonner MD have personally reviewed and interpreted this examination/study. > Interpreting Provider: Jailyn Espino MD on 05/09/2024 2:06 PM Narrative 05/09/2024 2:06 PM [employer]ER PROCEDURE: XR FOREARM RIGHT 2VW OR MORE, XR ELBOW RIGHT 2VW, DATE/TIME OF EXAM: 05/08/2024 11:59 PM, LOCATION [facility] INDICATION: S69.91XA: Injury of right wrist, initial [...] 2VW, DATE/TIMEOF EXAM: 05/08/2024 11:59 PM, LOCATION [facility] INDICATION: S69.91XA: Injury of right wrist, initial [...] > Dictated by Joel Craft DO, (residential roofer helper). Jailyn Bonner MD have personally reviewed and interpreted this examination/study. > Interpreting Provider: Jailyn Espino MD on 05/09/2024 2:06 PM Dominic Jeong MD DIAGNOSTIC IMAGING O RDERABLES * (ABNORMAL) CBC W AUTO DIFFERENTIAL (05/08/2024 5:10 PM DIE POLISHER) [facility] Signature WBC 8.7 4.0 - 10.7 x10E9/L 05/08/2024 5:30 PM [facility] RBC Count 4.67 3.90 - 5.20 x10E12/L 05/08/2024 5:30 PM [facility] Hemoglobin 14.6 11.9 - 15.8 g/dL 05/08/2024 5:30 PM [facility] Hematocrit 43.9 34.8 - 46.1 % 05/08/2024 5:30 PM [facility] MCV 94.0 80.0 - 98.0 fL 05/08/2024 5:30 PM [facility] MCH 31.3 26.7 - 33.6 pg 05/08/2024 5:30 PM [facility] MCHC 33.3 31.7 - 36.3 g/dL 05/08/2024 5:30 PM [facility] RDW-CV 12.8 11.3 - 14.8 % 05/08/2024 5:30 PM [facility] Platelet Count 249 150 - 420 x10E9/L 05/08/2024 5:30 PM [facility] MPV 10.6 7.8 - 11.4 fL 05/08/2024 5:30 PM [facility] Neutrophil % 78.1(H) 41.0 - 74.0 % 05/08/2024 5:30 PM [facility] Lymphocyte % 16.6(L) 17.0 - 47.0 % 05/08/2024 5:30 PM [facility] Monocyte % 4.7 3.0 - 11.0 % 05/08/2024 5:30 PM [facility] Eosinophil % 0.1 0.0 - 7.0 % 05/08/2024 5:30 PM [facility] Basophil % 0.3 0.0 - 1.6 % 05/08/2024 5:30 PM [facility] Immature Granulocytes % 0.2 0.0 - 1.0 % 05/08/2024 5:30 PM [facility] Neutrophil Absolute 6.80 1.60 - 7.50 x10E9/L 05/08/2024 5:30 PM [facility] Lymphocyte Absolute 1.45 1.00 - 4.40 x10E9/L 05/08/2024 5:30 PM [facility] Monocyte Absolute 0.41 0.15 - 1.00 x10E9/L 05/08/2024 5:30 PM [facility] Eosinophil Absolute 0.01 0.00 - 0.60 x10E9/L 05/08/2024 5:30 PM [facility] Basophil Absolute 0.03 0.00 - 0.13 x10E9/L 05/08/2024 5:30 PM [facility] Blood BLOOD SPECIMEN / Unknown Venipuncture / Unknown 05/08/2024 5:10 PM [facility]ER 05/08/2024 5:26 PM [facility] Vanessa Avery RECYCLABLE MATERIALS COLLECTOR-BILLING REP LAB - HEMATO LOGY ORDERABLES [facility] [address] [place] [address], [facility] [phone] * (ABNORMAL) COMPREHENSIVE METABOLIC PANEL (05/08/2024 5:10 PM [facility]) BUN 19 7 - 26 mg/dL 05/08/2024 5:59 PM [facility] Creatinine 0.70 0.56 - 0.96 mg/dL 05/08/2024 5:59 PM [facility] Sodium 143 136 - 145 mmol/L 05/08/2024 5:59 PM [facility] Potassium 3.8 3.5 - 4.5 mmol/L 05/08/2024 5:59 PM [facility] Chloride 101 98 - 107 mmol/L 05/08/2024 5:59 PM [facility] CO2 30(H) 22 - 29 mmol/L 05/08/2024 5:59 PM [facility] Glucose 109(H) 70 - 99 mg/dL 05/08/2024 5:59 PM [facility] Calcium 9.5 8.4 - 10.2 mg/dL 05/08/2024 5:59 PM [facility] Protein Total 6.7 6.0 - 8.3 g/dL 05/08/2024 5:59 PM [facility] Albumin 4.0 3.4 - 5.0 g/dL 05/08/2024 5:59 PM [facility] Bilirubin Total 0.4 0.2 - 1.2 mg/dL 05/08/2024 5:59 PM [facility] Alkaline Phosphatase 81 40 - 150 U/L 05/08/2024 5:59 PM [facility] ALT 15 5 - 55 U/L 05/08/2024 5:59 PM [facility] AST 21 5 - 34 U/L 05/08/2024 5:59 PM [facility] Anion Gap 12 6 - 16 05/08/2024 5:59 PM [facility] BUN/Creatinine Ratio 27(H) 7 - 23 05/08/2024 5:59 PM [facility] Osmolality Calculated 299(H) 275 - 295 mOsm/kg 05/08/2024 5:59 PM [facility] Albumin/Globulin Ratio 1.5 1.1 - 2.3 05/08/2024 5:59 PM [facility] eGFR by CKD-EPI 85(L) >=90 mL/min/1.7 3 m2 05/08/2024 5:59 PM [facility] Blood BLOOD SPECIMEN / Unknown Venipuncture / Unknown 05/08/2024 5:10 PM [facility]ER 05/08/2024 5:26 PM [facility] Vanessa Avery RECYCLABLE MATERIALS COLLECTOR-BILLING REP LAB - CHEMIS TRY ORDERABLES Performing Organization Address [facility]/State/ZIP Co de Phone Number [address] [address], [facility] [phone] * EKG 12-LEAD (05/08/2024 5:03 PM DIE POLISHER) Ventricular Rate 85 BPM [facility] Atrial Rate 85 BPM [facility] P-R Interval 140 ms [facility] QRS Duration ms 82 ms [facility] Q-T Interval ms 380 ms [facility] QTC Calculation (Bezet) 452 ms [facility] Calculated P [place] 74 degrees [facility] Calculated R [place] 19 degrees [facility] Calculated T [place] -5 degrees [facility] Interpretation EKG SINUS RHYTHM WITH PREMATURE ATRIAL COMPLEXES NONSPECIFIC ST AND T WAVE ABNORMALITY ABNORMAL ECG NO PREVIOUS ECGS AVAILABLE Confirmed by ELIAS WEBER, SADAF ([id number]) on 05/10/2024 11:18:39 AM [facility] 05/08/2024 5:03 PM D[employer] [facility]ER 05/10/2024 11:18 AM [facility] Vanessa Dickens Gena RECYCLABLE MATERIALS COLLECTOR-BILLING REP ECG ORDERABL ES [facility] Care Teams Manager Of Pmo Relationship Specialty Start Date End Date Quan Arriaza MD [address], [place] [id number] PCP - General Internal Medicine 05/02/24
--- OUTSIDE RECORDS SUMMARY | 2024-06-12 14:51 | XMS_ITS | Clinical Summary ---
Author Organization [facility] [employer] Address [address] [place] [address] Care Team Providers Care Public Speaker Name Role Phone Quan Arriaza MD Primary Care Provider [phone] Source Comments [facility] [employer],non-owned Affiliates and Associated Physician Practices is amultiple site organization consisting of ambulatory clinics and hospital sitesin [place], [place], [place] and [place]. This disclosure is being madepursuant to the Care Everywhere program and may not contain all information available regarding this patient. Last updated 18.[employer] Allergies No known active allergies Medications * Be aware that medications may not be up to date on this document. Alwaysverify current medications with the patient. Medication Sig Dispensed Refills Start Date End Date Status HYDROcodone-acetam inophen ([place]) 5-325 MG tabletIndications: Irregularly irregular pulse rhythm,Injury [...] (one) tablet by mouth at bedtime Active [place]-3 Fatty Acids (fish oil) 500 MG capsule [...] / 24 hours. 05/18/2024 Active HYDROcodone-acetam inophen ([place]) 5-325 MG tabletIndications: Pain Take 1 (one) [...] take as needed for constipation. 05/18/2024 Active Encounters Date Type Department Care Team Description 06/10/2024 Orders Only [facility] - Orthopedics [address] [place] [phone] Abel Sanches MD Closed fracture of right distal radius and ulna, with routine healing, subsequent encounter 06/08/2024 Travel 06/05/2024 10:30 AM INSURANCE SALES SUPERVISOR - 06/05/2024 11:59 PM [facility] Hospital Encounter [facility] OT [address] [place] [phone] Abel Sanches MD Reale, Jennifer, OTR/L Discharge Disposition: Home or Self Care 06/05/2024 9:00 AM INSURANCE SALES SUPERVISOR Office Visit [facility] - Orthopedics [address] [place] [phone] Abel Sanches MD Closed fracture of right distal radius and ulna, with routine healing, subsequent encounter (Primary Dx) 06/05/2024 8:51 AM INSURANCE SALES SUPERVISOR - 06/05/2024 10:29 AM INSURANCE SALES SUPERVISOR Hospital Encounter [facility] DIAGNOSTIC RAD [facility] [address] [place] [address] Abel Sanches MD Discharge Disposition: Home or Self Care 06/05/2024 Travel 05/19/2024 Orders Only [facility] - Orthopedics [address] [place] [phone] Abel Sanches MD Traumatic closed displaced fracture of distal end of radius, right, initial encounter 05/18/2024 12:44 PM INSURANCE SALES SUPERVISOR - 05/18/2024 4:04 PM INSURANCE SALES SUPERVISOR Surgery [facility] [address] [place] [phone] Abel Sanches MD DISTAL RADIUS OPEN REDUCTION INTERNAL FIXATION 05/18/2024 10:02 AM INSURANCE SALES SUPERVISOR Anesthesia Event [facility] [address] [place] [phone] Conrad Flood MD Shaw, Thomas J, 05/18/2024 8:37 AM INSURANCE SALES SUPERVISOR - 05/18/2024 2:33 PM INSURANCE SALES SUPERVISOR Hospital Encounter [facility] [address] [place] [phone] Abel Sanches MD Surgery General Discharge Disposition: Home or Self Care 05/18/2024 Travel 05/13/2024 Travel 05/12/2024 9:10 AM INSURANCE SALES SUPERVISOR - 05/12/2024 11:59 PM INSURANCE SALES SUPERVISOR Hospital Encounter [facility] DIAGNOSTIC [facility] [address] [place] [address] Abel Sanches MD Discharge Disposition: Home or Self Care 05/12/2024 9:00 AM INSURANCE SALES SUPERVISOR [facility] [address] [place] [phone] Abel Sanches MD Traumatic closed displaced fracture of distal end of radius, right, initial encounter (Primary Dx); Acute carpal tunnel syndrome of right wrist 05/12/2024 Travel 05/11/2024 Orders Only [facility] - Orthopedics [address] [place] [address] Abel Sanches MD Right wrist pain 05/11/2024 Travel 05/08/2024 11:03 PM INSURANCE SALES SUPERVISOR - 05/09/2024 2:40 AM INSURANCE SALES SUPERVISOR Emergency [facility] EMERGENCY DEPARTMENT [address] [place] [address] Dominic Joeng MD Irregularly irregular pulse rhythm; Injury of right wrist, initial encounter Discharge Disposition: Home or Self Care from Last 3 Months Social History Tobacco Use Types Packs/Day Years [...] file Travel History Travel Start Travel End [place] 04/12/2024 05/13/2024 Last Filed Vital Signs Vital Sign Reading Time Taken Comments Blood Pressure 163/66 05/18/2024 1:52 PM INSURANCE SALES SUPERVISOR Pulse 63 05/18/2024 1:52 PM INSURANCE SALES SUPERVISOR Temperature 36.4 C (97.5 F) 05/18/2024 1:12 PM INSURANCE SALES SUPERVISOR Respiratory Rate 16 05/18/2024 1:52 PM INSURANCE SALES SUPERVISOR Oxygen Saturation 95% 05/18/2024 1:52 PM INSURANCE SALES SUPERVISOR Inhaled Oxygen Concentration - - Weight 63.5 kg (140 lb) 05/18/2024 9:15 AM INSURANCE SALES SUPERVISOR Height 167.6 cm (5' 6 ) 05/18/2024 9:15 AM INSURANCE SALES SUPERVISOR Body Mass Index 22.6 05/18/2024 9:15 AM INSURANCE SALES SUPERVISOR Plan of Treatment Upcoming Encounters Date Type Department Care Team (Late st Contact Info) Description 07/03/2024 9:00 AM INSURANCE SALES SUPERVISOR Office Visit [facility] - Orthopedics [address] [place] [phone] Abel Sanches MD [facility] [phone] Health Maintenance Due Date Last Done Comments BONE DENSITY TESTING 1940 DTAP/TDAP/TD VACCINES (1 - Tdap) 11/28/1958 PNEUMOCOCCAL VACCINE 50+ (1 of 1 - PCV) 11/28/1989 ZOSTER VACCINE (1 of 2) 11/28/1989 Respiratory Syncytial Virus (RSV) Vaccine Pt: or over 60 yrs (1 - 1-dose 75+ series) 11/28/2014 MEDICARE AWV CALENDAR YEAR 2024 COVID-19 VACCINE Completed 01/23/2024, , 01/25/2022, Additional history exists INFLUENZA VACCINE Completed 01/23/2024, , 01/26/2021 DEPRESSION SCREENING Completed 05/12/2024 HEPATITIS B VACCINE Aged Out No longe r eligible based on patient's age to complete this topic HIB VACCINE Aged Out No longer eligi ble based on patient's age to complete this topic HPV VACCINE Aged Out No longer eligi ble based on patient's age to complete this topic MENINGOCOCCAL (Group B) VACCINE Aged Out No longer eligible based on patient's age to complete this topic MENINGOCOCCAL VACCINE Aged Out No sonny denis eligible based on patient's age to complete this topic Medical Devices Implanted Type Area Superintendent Sales Device Identifier Shelf Expiration Date Model / Serial / Lot Lifenethealth Modlable Emineralized Fibers Implanted:Qty: 1 on 05/18/2024 by Abel Sanches MD at [facility] Right: Wrist 08/23/2027-1800- / ID: [id number] / 2.7 Cortx Screw Implanted:Qty: 1 on 05/18/2024 by Abel Sanches MD at [facility] Right: Wrist [id number] / / Distal Radius Plate Implanted:Qty: 1 on 05/18/2024 by Abel Sanches MD at [facility] Right: Wrist [id number] / / 2.4 Va Locking Screw Implanted:Qty: 1 on 05/18/2024 by Abel Sanches MD at [facility] Right: Wrist 02.210.120 / / 2.4 Locking Screw Implanted:Qty: 2 on 05/18/2024 by Abel Sanches MD at [facility] Right: Wrist [id number] / / Screw 2.4mm 18mm T8 Slf-Tap Lck Va Strdr Implanted:Qty: 2 on 05/18/2024 by Abel Sanches MD at [facility] Right: Wrist Synthes Usa [id number] / / 2.4 Va Locking Screw Implanted:Qty: 1 on 05/18/2024 by Abel Sanches MD at [facility] Right: Wrist [id number] / / Explanted Type Area Superintendent Sales Device Identifier Shelf Expiration Date Model / Serial / Lot Screw 2.4mm 14mm T8 Cortx Slf-Tap Strdr Explanted:Qty: 1 on 05/18/2024 at [facility] Right: Wrist Synthes Usa [id number] / / 2.4 Va Locking Screen Explanted:Qty: 1 on 05/18/2024 by Abel Sanches MD at [facility] Right: Wrist [id number] / / 2.7 Cortx Screw Explanted:Qty: 1 on 05/18/2024 by Abel Sanches MD at [facility] Right: Wrist 202.872 / / Procedures Procedure Name Priority Date/Time Associated Diagnosis Comments XR WRIST RIGHT 3VW OR MORE Routine 06/05/2024 9:14 AM INSURANCE SALES SUPERVISOR Traumatic closed displaced fracture of distal end of radius, right, initial encounter CARDIAC RHYTHM STRIP ORDER 05/20/2024 11:40 PM INSURANCE SALES SUPERVISOR IMAGING/RADIOLOGY/XR AY RESULTS ORDER 05/20/2024 7:54 PM INSURANCE SALES SUPERVISOR XR WRIST RIGHT 2VW STAT 05/18/2024 12 :59 PM INSURANCE SALES SUPERVISOR Pain FL CYNTHIA SURGERY Routine 05/18/2024 11:51 AM INSURANCE SALES SUPERVISOR Pain PERIPHERAL BLOCK Routine 05/18/2024 10:0 1 AM INSURANCE SALES SUPERVISOR DE WRIST ARTHROSCOP,RELEASE XVERS LIG 05/18/2024 9:20 AM INSURANCE SALES SUPERVISOR Diagnosis unknown Special Needs NEEDS MINI C-ARM, SYNTHES--REP. (ANA MARIA # [phone]) AND ARTHREX--REP. (YOVANY # [phone])--BOTH REPS NOTIFIED BY SURGEON PER OFFICE ([employer])---05/13 KW -REPS EMAILED 05/13 WC DE OPTX DSTL RADL X-ARTIC FX/EPIPHYSL SEP 05/18/2024 9:20 AM INSURANCE SALES SUPERVISOR Diagnosis unknown Special Needs NEEDS MINI C-ARM, SYNTHES--REP. (ANA MARIA # [phone]) AND ARTHREX--REP. (YOVANY # [phone])--BOTH REPS NOTIFIED BY SURGEON PER OFFICE ([employer])---05/13 KW -REPS EMAILED 05/13 WC XR WRIST RIGHT 3VW OR MORE Routine 05/12/2024 9:13 AM INSURANCE SALES SUPERVISOR Right wrist pain CARDIAC EKG ORDER 05/11/2024 11: [address]URANCE SALES SUPERVISOR CT WRIST RIGHT WO CONTRAST STAT 05/09/2024 1:00 AM INSURANCE SALES SUPERVISOR Injury of right wrist, initial encounter XR WRIST RIGHT 2VW STAT 05/09/2024 12 :40 AM INSURANCE SALES SUPERVISOR Injury of right wrist, initial encounter XR ELBOW RIGHT 2VW STAT 05/08/2024 11 :59 PM INSURANCE SALES SUPERVISOR Injury of right wrist, initial encounter XR FOREARM RIGHT 2VW OR MORE STAT 05/08/2024 11:59 PM INSURANCE SALES SUPERVISOR Injury of right wrist, initial encounter XR WRIST RIGHT 3VW OR MORE STAT 05/08/2024 7:28 PM INSURANCE SALES SUPERVISOR Injury of right wrist, initial encounter COMPREHENSIVE METABOLIC PANEL STAT 05/08/2024 5:10 PM INSURANCE SALES SUPERVISOR CBC W AUTO DIFFERENTIAL STAT 05/08/2024 5:10 PM INSURANCE SALES SUPERVISOR EKG 12-LEAD STAT 05/08/2024 5:03 PM INSURANCE SALES SUPERVISOR Irregularly irregular pulse rhythm from Last 3 Months Results * XR Wrist Right 3Vw or More (06/05/2024 9:14 AM INSURANCE SALES SUPERVISOR) Only the most recent of3 resultswithin the time period is included. Anatomical Region Laterality Modality Wrist / Hand Computed Radiogr aphy 06/05/2024 9:43 AM INSURANCE SALES SUPERVISOR Narrative 06/05/2024 9:46 AM INSURANCE SALES SUPERVISOR PROCEDURE: XR WRIST RIGHT 3VW OR MORE, DATE/TIME OF EXAM: 06/05/2024 9:14 AM, LOCATION [facility] INDICATION: S52.501A: Traumatic closed displaced fracture [...] MORE, DATE/TIME OF EXAM: 59:14 AM, LOCATION [facility] INDICATION: S52.501A: Traumatic closed displaced fracture [...] CARDIAC RHYTHM STRIP ORDER (05/20/2024 11:40 PM INSURANCE SALES SUPERVISOR) Narrative 05/20/2024 11:40 PM INSURANCE SALES SUPERVISOR Ordered by an unspecified provider. Scanned Document CARDIAC SERVICES ORD ERABLES * IMAGING RADIOLOGY XRAY RESULTS ORDER (05/20/2024 7:54 PM INSURANCE SALES SUPERVISOR) Anatomical Region Laterality Modality Other Narrative 05/20/2024 7:54 PM INSURANCE SALES SUPERVISOR Ordered by an unspecified provider. Scanned Document IMAGING * XR Wrist Right 2Vw (05/18/2024 12:59 PM INSURANCE SALES SUPERVISOR) Only the most recent of2 resultswithin the time period is included. Anatomical Region Laterality Modality Wrist / Hand Radiographic Rachel ging 05/18/2024 1:04 PM INSURANCE SALES SUPERVISOR Impressions 05/18/2024 1:10 PM INSURANCE SALES SUPERVISOR IMPRESSION: Postop changes. Edited by Yolanda Thakur on 05/18/2024 1:05 PM > Interpreting Provider: Scar Quach MD on 05/18/2024 1:10 PM Narrative 05/18/2024 1:10 PM INSURANCE SALES SUPERVISOR PROCEDURE: XR WRIST RIGHT 2VW DATE/TIME OF [...] * [place] Cynthia Surgery (05/18/2024 11:51 AM INSURANCE SALES SUPERVISOR) Narrative [facility] - 05/19/2024 11:51 AM INSURANCE SALES SUPERVISOR For details of this study, please see the providers note. Abel Sanches MD FLUOROSCOPY ORDERABL ES Performing Organization Address City/State/[facility] Co de Phone Number [facility] [address] [place] [address] * Peripheral Nerve Block (05/18/2024 10:01 AM INSURANCE SALES SUPERVISOR) Narrative Shahab Lange DO - 05/18/2024 10:01 AM INSURANCE SALES SUPERVISOR Shahab Lange DO 05/18/2024 10:02 AM Peripheral [...] * CARDIAC EKG ORDER (05/11/2024 11:34 AM INSURANCE SALES SUPERVISOR) Narrative 05/11/2024 11:34 AM INSURANCE SALES SUPERVISOR Ordered by an unspecified provider. Scanned Document CARDIAC SERVICES ORD ERABLES * CT Wrist Right Wo Contrast (05/09/2024 1:00 AM INSURANCE SALES SUPERVISOR) Anatomical Region Laterality Modality Wrist / Hand Computed Tomogra phy 05/09/2024 1:20 AM INSURANCE SALES SUPERVISOR Impressions 05/09/2024 9:55 AM INSURANCE SALES SUPERVISOR IMPRESSION: 1.Interval closed reduction and splinting of [...] Report dictated by Joe Lopes M.D. (Interventional president trust company) 05/09/2024 1:26 AM Jailyn Bonner MD have personally reviewed and interpreted this examination/study. > Interpreting Provider: Jailyn Espino MD on 05/09/2024 9:55 AM Narrative 05/09/2024 9:55 AM INSURANCE SALES SUPERVISOR PROCEDURE: CT WRIST RIGHT WO CONTRAST, DATE/TIME OF EXAM: 05/09/2024 1:01 AM, LOCATION [facility] INDICATION: S69.91XA: Injury of right wrist, [...] CONTRAST, DATE/TIME OF EXAM: 51:01 AM, LOCATION [facility] INDICATION: S69.91XA: Injury of right wrist, [...] Report dictated by Joe Lopes M.D. (Interventional president trust company) 05/09/2024 1:26 AM Jailyn Bonner MD have personally reviewed and interpreted this examination/study. > Interpreting Provider: Jailyn Espino MD on 05/09/2024 9:55 AM Dominic Jeong MD CT ORDERABLES * XR Elbow Right 2Vw (05/08/2024 11:59 PM INSURANCE SALES SUPERVISOR) Anatomical Region Laterality Modality Upper Extremity Digital Radiogra phy 05/09/2024 12:0 8 AM INSURANCE SALES SUPERVISOR Impressions 05/09/2024 2:06 PM INSURANCE SALES SUPERVISOR IMPRESSION: Fractures of the distal radius and ulna as previously described. > Dictated by Joel Craft DO, (enrollment services vice president). Jailyn Bonner MD have personally reviewed and interpreted this examination/study. > Interpreting Provider: Jailyn Espino MD on 05/09/2024 2:06 PM Narrative 05/09/2024 2:06 PM INSURANCE SALES SUPERVISOR PROCEDURE: XR FOREARM RIGHT 2VW OR MORE, XR ELBOW RIGHT 2VW, DATE/TIME OF EXAM: 05/08/2024 11:59 PM, LOCATION [facility] INDICATION: S69.91XA: Injury of right wrist, [...] 2VW, DATE/TIMEOF EXAM: 05/08/2024 11:59 PM, LOCATION [facility] INDICATION: S69.91XA: Injury of right wrist, [...] described. > Dictated by Joel Craft DO, (enrollment services vice president). IJailyn MD have personally reviewed and interpreted this examination/study. > Interpreting Provider: Jailyn Espino MD on 05/09/2024 2:06 PM Dominic Jeong MD DIAGNOSTIC IMAGING O RDERABLES * XR Forearm Right 2Vw or More (05/08/2024 11:59 PM INSURANCE SALES SUPERVISOR) Anatomical Region Laterality Modality Upper Extremity Digital Radiogra phy 05/09/2024 12:0 8 AM INSURANCE SALES SUPERVISOR Impressions 05/09/2024 2:06 PM INSURANCE SALES SUPERVISOR IMPRESSION: Fractures of the distal radius and ulna as previously described. > Dictated by Joel Craft DO, (enrollment services vice president). Jailyn Bonner MD have personally reviewed and interpreted this examination/study. > Interpreting Provider: Jailyn Espino MD on 05/09/2024 2:06 PM Narrative 05/09/2024 2:06 PM INSURANCE SALES SUPERVISOR PROCEDURE: XR FOREARM RIGHT 2VW OR MORE, XR ELBOW RIGHT 2VW, DATE/TIME OF EXAM: 05/08/2024 11:59 PM, LOCATION [facility] INDICATION: S69.91XA: Injury of right wrist, [...] 2VW, DATE/TIMEOF EXAM: 05/08/2024 11:59 PM, LOCATION [facility] INDICATION: S69.91XA: Injury of right wrist, [...] described. > Dictated by Joel Craft DO, (enrollment services vice president). I, Claire. Brooklynn Espino MD have personally reviewed and interpreted this examination/study. > Interpreting Provider: Jailyn Espino MD on 05/09/2024 2:06 PM Dominic Jeong MD DIAGNOSTIC IMAGING O RDERABLES * (ABNORMAL) CBC W AUTO DIFFERENTIAL (05/08/2024 5:10 PM INSURANCE SALES SUPERVISOR) WBC 8.7 4.0 - 10.7 x10E9/L 05/08/2024 5:30 PM [facility] RBC Count 4.67 3.90 - 5.20 x10E12/L 05/08/2024 5:30 PM [facility] Hemoglobin 14.6 11.9 - 15.8 g/dL 05/08/2024 5:30 PM [facility] Hematocrit 43.9 34.8 - 46.1 % 05/08/2024 5:30 PM [facility] MCV 94.0 80.0 - 98.0 fL 05/08/2024 5:30 PM [facility] MCH 31.3 26.7 - 33.6 pg 05/08/2024 5:30 PM [facility] MCHC 33.3 31.7 - 36.3 g/dL 05/08/2024 5:30 PM [facility] RDW-CV 12.8 11.3 - 14.8 % 05/08/2024 5:30 PM [facility] Platelet Count 249 150 - 420 x10E9/L 05/08/2024 5:30 PM [facility] MPV 10.6 7.8 - 11.4 fL 05/08/2024 5:30 PM [facility] Neutrophil % 78.1(H) 41.0 - 74.0 % 05/08/2024 5:30 PM [facility] Lymphocyte % 16.6(L) 17.0 - 47.0 % 05/08/2024 5:30 PM [facility] Monocyte % 4.7 3.0 - 11.0 % 05/08/2024 5:30 PM [facility] Eosinophil % 0.1 0.0 - 7.0 % 05/08/2024 5:30 PM [facility] Basophil % 0.3 0.0 - 1.6 % 05/08/2024 5:30 PM [facility] Immature Granulocytes % 0.2 0.0 - 1.0 % 05/08/2024 5:30 PM [facility] Neutrophil Absolute 6.80 1.60 - 7.50 x10E9/L 05/08/2024 5:30 PM [facility] Lymphocyte Absolute 1.45 1.00 - 4.40 x10E9/L 05/08/2024 5:30 PM [facility] Monocyte Absolute 0.41 0.15 - 1.00 x10E9/L 05/08/2024 5:30 PM [facility] Eosinophil Absolute 0.01 0.00 - 0.60 x10E9/L 05/08/2024 5:30 PM [facility] Basophil Absolute 0.03 0.00 - 0.13 x10E9/L 05/08/2024 5:30 PM [facility] Blood BLOOD SPECIMEN / Unknown Venipuncture / Unknown 05/08/2024 5:10 PM INSURANCE SALES SUPERVISOR 05/08/2024 5:26 PM [facility] Vanessa Avery HEALTHCARE SCIENCE SPECIALIST-MANUFACTURING [facility] HEMATO LOGY ORDERABLES [facility] [address] [place] [address], [facility] [phone] * (ABNORMAL) COMPREHENSIVE METABOLIC PANEL (05/08/2024 5:10 PM [facility]) BUN 19 7 - 26 mg/dL 05/08/2024 5:59 PM [facility] Creatinine 0.70 0.56 - 0.96 mg/dL 05/08/2024 5:59 PM [facility] Sodium 143 136 - 145 mmol/L 05/08/2024 5:59 PM [facility] Potassium 3.8 3.5 - 4.5 mmol/L 05/08/2024 5:59 PM [facility] Chloride 101 98 - 107 mmol/L 05/08/2024 5:59 PM [facility] CO2 30(H) 22 - 29 mmol/L 05/08/2024 5:59 PM [facility] Glucose 109(H) 70 - 99 mg/dL 05/08/2024 5:59 PM [facility] Calcium 9.5 8.4 - 10.2 mg/dL 05/08/2024 5:59 PM [facility] Protein Total 6.7 6.0 - 8.3 g/dL 05/08/2024 5:59 PM [facility] Albumin 4.0 3.4 - 5.0 g/dL 05/08/2024 5:59 PM [facility] Bilirubin Total 0.4 0.2 - 1.2 mg/dL 05/08/2024 5:59 PM [facility] Alkaline Phosphatase 81 40 - 150 U/L 05/08/2024 5:59 PM [facility] ALT 15 5 - 55 U/L 05/08/2024 5:59 PM [facility] AST 21 5 - 34 U/L 05/08/2024 5:59 PM [facility] Anion Gap 12 6 - 16 05/08/2024 5:59 PM [facility] BUN/Creatinine Ratio 27(H) 7 - 23 05/08/2024 5:59 PM [facility] Osmolality Calculated 299(H) 275 - 295 mOsm/kg 05/08/2024 5:59 PM [facility] Albumin/Globulin Ratio 1.5 1.1 - 2.3 05/08/2024 5:59 PM [facility] eGFR by CKD-EPI 85(L) >=90 mL/min/1.7 3 m2 05/08/2024 5:59 PM [facility] Blood BLOOD SPECIMEN / Unknown Venipuncture / Unknown 05/08/2024 5:10 PM INSURANCE SALES SUPERVISOR 05/08/2024 5:26 PM [facility] Vanessa Avery HEALTHCARE SCIENCE SPECIALIST-MANUFACTURING [facility] - CHEMIS TRY ORDERABLES [facility] [address] [place] [address], [facility] [phone] * EKG 12-LEAD (05/08/2024 5:03 PM INSURANCE SALES SUPERVISOR) Ventricular Rate 85 BPM [facility] Atrial Rate 85 BPM [facility] P-R Interval 140 ms [facility] QRS Duration ms 82 ms [facility] Q-T Interval ms 380 ms [facility] QTC Calculation (Bezet) 452 ms [facility] Calculated P [place] 74 degrees [facility] Calculated R [place] 19 degrees [facility] Calculated T [place] -5 degrees [facility] Interpretation EKG SINUS RHYTHM WITH PREMATURE ATRIAL COMPLEXES NONSPECIFIC ST AND T WAVE ABNORMALITY ABNORMAL ECG NO PREVIOUS ECGS AVAILABLE Confirmed by ELIAS WEBER, SADAF ([id number]) on 05/10/2024 11:18:39 AM H MUSE 05/08/2024 5:03 PM INSURANCE SALES SUPERVISOR 05/10/2024 11:18 AM INSURANCE SALES SUPERVISOR Vanessa Avery HEALTHCARE SCIENCE SPECIALIST-MANUFACTURING [employer] ECG ORDERABL ES [facility] PEDRO from Last 3 Months Care Teams Public Speaker Relationship Specialty Start Date End Date Quan Ariraza MD [address] [place] [address] PCP - General Internal Medicine 05/02/24
== END 2024-06-12 14:49 | disposition home or self-care (01) ==
PROVIDERS: PCP Internal Medicine; Visit Provider Internal Medicine
DX: Z12.31 Encounter for screening mammogram for malignant neoplasm of breast (principal); R92.8 Other abnormal and inconclusive findings on diagnostic imaging of breast
CPT/HCPCS: 77063; 77067

== ENCOUNTER 2024-06-18 09:24 | Outpatient (CLI) | payer MEDICARE, SELFPAY ==
--- NOTE | ~2024-06-18 | MMUS_ITS ---
EXAMINATION: MM diagnostic odilia LT w em, US breast LT complete HISTORY: Follow-up developing left breast masses/asymmetries TECHNIQUE: Additional 3-D tomosynthesis images of the left breast were performed and synthetic 2-D im ages were generated. CAD analysis was submitted and interpreted. High resolution complete left breast ultrasound was performed. COMPARISON: Comparison to multiple prior studies sequentially, with oldest reviewed study dated 05/27. BREAST PARENCHYMAL COMPOSITION: Not dense: There are scattered areas of fibroglandular density. FINDINGS: MAMMOGRAPHIC FINDINGS: There are multiple ill-defined masses and asymmetry upper central aspect in the left breast. There ar e no suspicious calcifications. No architectural distortion. ULTRASOUND: Complete US of all 4 quadrants of the left breast/s and retroareolar region was reviewed. At 12:00 in the left breast there is an 8 mm cyst. At 3:00, 8 cm from the nipple there is a 8 mm cyst. At 9:00 n ear the nipple there is a small cyst. There is an adjacent oval hypoechoic 6 mm mass with parallel or ientation, posterior acoustic enhancement and no internal vascularity, likely benign. At 9:00 near th e nipple there is a 7 mm cyst. At 11:00, 5 cm from the nipple there is an 8 mm cyst. In the subareola r location there is an oval hypoechoic mass with parallel orientation, circumscribed margins and no i nternal vascularity or posterior features measuring 4 mm, likely benign. IMPRESSION: 1. Probable benign left breast masses at 9:00 near the nipple and in the subareolar location. Multipl e additional benign cyst are identified. 2. Recommend 6 month follow-up Limited left breast ultrasound. BI-RADS category 3, probably benign findings. Reviewed, dictated and finalized at location B. GHT CAR INSPECTOR IMPRESSION: 1. Probable benign left breast masses at 9:00 near the nipple and in the subare olar location. Multiple additional benign cyst are identified. 2. Recommend 6 month follow-up Limited left breast ultrasound. BI-RADS category 3, probably benign findings.
--- OUTSIDE RECORDS SUMMARY | 2024-06-18 09:32 | XMS_ITS | Encounter Summary ---
Author Organization [facility] Address [address] [place] [address] Care Team Providers Care Landcare Facilitator Name Role Phone Quan Arriaza MD Primary Care Provider [phone] Encounter Details Date Type Department Care Team (Late st Contact Info) Description 06/10/2024 Orders Only [facility] [address] [place] [phone] Abel Sanches MD [address] [place] [phone] Closed fracture of right distal radius and [...] on file Sexual Orientation Not on file documented as of this encounter Plan of Treatment Upcoming Encounters Date Type Department Care Team (Late st Contact Info) Description 07/03/2024 9:00 AM INSPECTOR AUTOMATIC TYPEWRITER [facility] [address] [place] [phone] Abel Sanches MD [address] [phone] Scheduled Orders Name Type Priority Associated Diagnoses [...] Primary documented in this encounter Care Teams Landcare Facilitator Relationship Specialty Start Date End Date Quan Arriaza MD [address] [place] [address] PCP - General Internal Medicine 05/02/24 documented as of this encounter
--- OUTSIDE RECORDS SUMMARY | 2024-06-18 09:32 | XMS_ITS | Clinical Summary ---
Author Organization [facility] Address [facility] [place] [address] Care Team Providers Care Procurement Manager Name Role Phone Unavailable Primary Care Provider [...]
--- OUTSIDE RECORDS SUMMARY | 2024-06-18 09:32 | XMS_ITS | Clinical Summary ---
Author Organization [facility] Address [address] [place] [address] Care Team Providers Care Husbandry Technician Name Role Phone Quan Arriaza MD Primary Care Provider [phone] Source Comments [facility],non-owned Affiliates and Associated Physician Practices is amultiple site organization consisting of ambulatory clinics and hospital sitesin [place], [place], [place] and [place]. This disclosure is being madepursuant to the Care Everywhere program and may not contain all information available regarding this patient. Last updated 18.[facility] Allergies No known active allergies Medications * Be aware that medications may not be up to date on this document. Alwaysverify current medications with the patient. Medication Sig Dispensed Refills Start Date End Date Status HYDROcodone-acetam inophen ([place]) 5-325 MG tabletIndications: Irregularly irregular pulse rhythm,Injury [...] (one) tablet by mouth at bedtime Active Magnolia-3 Fatty Acids (fish oil) 500 MG capsule [...] / 24 hours. 05/18/2024 Active HYDROcodone-acetam inophen ([place]) 5-325 MG tabletIndications: Pain Take 1 (one) [...] Orders Only [facility] [address] [place] [phone] Abel Sanches MD Closed fracture of right distal radius and ulna, with routine healing, subsequent encounter 06/08/2024 Travel 06/05/2024 10:30 AM [facility] - 06/05/2024 11:59 PM [facility] Hospital Encounter [facility] OT [address] [place] [phone] Abel Sanches MD Reale, Jennifer, OTR/L Discharge Disposition: Home or Self Care 06/05/2024 9:00 AM [employer] LABOR Office Visit [facility] [address] [place] [phone] Abel Sanches MD Closed fracture of right distal radius and ulna, with routine healing, subsequent encounter (Primary Dx) 06/05/2024 8:51 AM [facility] - 06/05/2024 10:29 AM [facility] Hospital Encounter [facility] DIAGNOSTIC RAD [facility] [address] [place] [address] Abel Sanches MD Discharge Disposition: Home or Self Care 06/05/2024 Travel 05/19/2024 Orders Only [facility] [address] [place] [phone] Abel Sanches MD Traumatic closed displaced fracture of distal end of radius, right, initial encounter 05/18/2024 12:44 PM [facility] - 05/18/2024 4:04 PM [facility] Surgery [facility] PERIOPERATIVE [address] [place] [phone] Abel Sanches MD DISTAL RADIUS OPEN REDUCTION INTERNAL FIXATION 05/18/2024 10:02 AM [facility] Anesthesia Event [facility] PERIOPERATIVE [address] [place] [phone] Conrad Flood MD Shaw, Thomas J, 05/18/2024 8:37 AM [facility] - 05/18/2024 2:33 PM [facility] Hospital Encounter [facility] PERIOPERATIVE [address] [place] [phone] Abel Sanches MD Surgery General Discharge Disposition: Home or Self Care 05/18/2024 Travel 05/13/2024 Travel 05/12/2024 9:10 AM [facility] [employer] [facility] - 05/12/2024 11:59 PM [facility] Hospital Encounter [facility] DIAGNOSTIC RAD [facility] [address] [place] [address] Abel Sanches MD Discharge Disposition: Home or Self Care 05/12/2024 9:00 AM [facility] [facility]OR [facility] [address] [place] [phone] Abel Sanches MD Traumatic closed displaced fracture of distal end of radius, right, initial encounter (Primary Dx); Acute carpal tunnel syndrome of right wrist 05/12/2024 Travel 05/11/2024 Orders Only [facility] [place] [phone] Abel Sanches MD Right wrist pain 05/11/2024 Travel 05/08/2024 11:03 PM [facility] - 05/09/2024 2:40 AM [facility] [employer] [facility] Emergency [facility] EMERGENCY DEPARTMENT [address] [place] [address] Dominic Jeong MD Irregularly irregular pulse rhythm; [...] Comments Blood Pressure 163/66 05/18/2024 1:52 PM [facility] Pulse 63 05/18/2024 1:52 PM [facility] Temperature 36.4 C (97.5 F) 05/18/2024 1:12 PM [facility] Respiratory Rate 16 05/18/2024 1:52 PM [facility] Oxygen Saturation 95% 05/18/2024 1:52 PM [facility] Inhaled Oxygen Concentration - - Weight 63.5 kg (140 lb) 05/18/2024 9:15 AM [facility] Height 167.6 cm (5' 6 ) 05/18/2024 9:15 AM [facility] Body Mass Index 22.6 05/18/2024 9:15 AM [facility] [employer] Plan of Treatment Upcoming Encounters Date Type Department Care Team (Late st Contact Info) Description 07/03/2024 9:00 AM [facility] LABOR Office Visit [facility] [address] [place] [phone] Abel Sanches MD [address] [facility] [address] [place] [address] Health Maintenance Due Date Last Done Comments [...] this topic Medical Devices Implanted Type Area Recruiter Device Identifier Shelf Expiration Date Model / Serial / Lot Lifenethealth Modlable Emineralized Fibers Implanted:Qty: 1 on 05/18/2024 by Abel Sanches MD at [facility] Right: Wrist 08/23/2027 BL-1800-01 / ID: [id number] / 2.7 Cortx Screw Implanted:Qty: 1 on 05/18/2024 by Abel Sanches MD at [facility] Right: Wrist [id number] / / Distal Radius Plate Implanted:Qty: 1 on 05/18/2024 by Abel Sanches MD at [facility] Right: Wrist 02.111.630 / / 2.4 Va Locking Screw Implanted:Qty: 1 on 05/18/2024 by Abel Sanches MD at [facility] Right: Wrist .210.120 / / 2.4 Locking Screw Implanted:Qty: 2 on 05/18/2024 by Abel Sanches MD at [facility] Right: Wrist .210.114 / / Screw 2.4mm 18mm T8 Slf-Tap Lck Va Strdr Implanted:Qty: 2 on 05/18/2024 by Abel Sanches MD at [facility] Right: Wrist Synthes Usa .210.118 / / 2.4 Va Locking Screw Implanted:Qty: 1 on 05/18/2024 by Abel Sanches MD at [facility] Right: Wrist .210.114 / / Explanted Type Area Recruiter Device Identifier Shelf Expiration Date Model / Serial / Lot Screw 2.4mm 14mm T8 Cortx Slf-Tap Strdr Explanted:Qty: 1 on 05/18/2024 at [facility] Right: Wrist Synthes Usa 201.764 / / 2.4 Va Locking Screen Explanted:Qty: 1 on 05/18/2024 by Abel Sanches MD at [facility] Right: Wrist .210.114 / / 2.7 Cortx Screw Explanted:Qty: 1 on 05/18/2024 by Abel Sanches MD at [facility] Right: Wrist 202.872 / / Procedures Procedure Name Priority Date/Time Associated Diagnosis Comments XR WRIST RIGHT 3VW OR MORE Routine 06/05/2024 9:14 AM [facility] [facility] [facility] Traumatic closed displaced fracture of distal end of radius, right, initial encounter CARDIAC RHYTHM STRIP ORDER 05/20/2024 11:40 PM [facility] IMAGING/RADIOLOGY/XR AY RESULTS ORDER 05/20/2024 7:54 PM [facility] [employer] XR WRIST RIGHT 2VW STAT 05/18/2024 12 :59 PM [facility] [employer] [facility] [facility] Pain FL CYNTHIA SURGERY Routine 05/18/2024 11:51 AM [facility] [facility] [facility] Pain PERIPHERAL BLOCK Routine 05/18/2024 10:0 1 AM [employer] ME WRIST ARTHROSCOP,RELEASE XVERS LIG 05/18/2024 9:20 AM [facility] LAB[facility] Diagnosis unknown Special Needs NEEDS MINI C-ARM, SYNTHES--REP. (ANA MARIA # [phone]) AND ARTHREX--REP. (YOVANY # [phone])--BOTH REPS NOTIFIED BY SURGEON PER OFFICE (Servoy)---05/13 KW -REPS EMAILED 05/13 WC ME OPTX DSTL RADL X-ARTIC FX/EPIPHYSL SEP 05/18/2024 9:20 AM [facility] [facility] LAB[facility] Diagnosis unknown Special Needs NEEDS MINI C-ARM, SYNTHES--REP. (ANA MARIA # [phone]) AND ARTHREX--REP. (YOVANY # [phone])--BOTH REPS NOTIFIED BY SURGEON PER OFFICE (Servoy)---05/13 KW -REPS EMAILED 05/13 WC XR WRIST RIGHT 3VW OR MORE Routine 05/12/2024 9:13 AM [facility] LAB[employer] Right wrist pain CARDIAC EKG ORDER 05/11/2024 11: 34 AM BR[employer] BLOCK[employer] A[employer] LAB[employer] CT WRIST RIGHT WO CONTRAST STAT 05/09/2024 1:00 AM [facility] [facility] LAB[facility] Injury of right wrist, initial encounter XR WRIST RIGHT 2VW STAT 05/09/2024 12 :40 AM [facility] [facility] [facility] Injury of right wrist, initial encounter XR ELBOW RIGHT 2VW STAT 05/08/2024 11 :59 PM [facility] [employer] [facility] [facility] Injury of right wrist, initial encounter XR FOREARM RIGHT 2VW OR MORE STAT 05/08/2024 11:59 PM [facility] Injury of right wrist, initial encounter XR WRIST RIGHT 3VW OR MORE STAT 05/08/2024 7:28 PM [facility] [facility] [facility] Injury of right wrist, initial encounter COMPREHENSIVE METABOLIC PANEL STAT 05/08/2024 5:10 PM [facility] CBC W AUTO DIFFERENTIAL STAT 05/08/2024 5:10 PM [facility] [facility] [facility]OR EKG 12-LEAD STAT 05/08/2024 5:03 PM [facility] [employer] [facility] [facility] Irregularly irregular pulse rhythm from Last 3 Months Results * XR Wrist Right 3Vw or More (06/05/2024 9:14 AM [facility] LABOR) Only the most recent of3 resultswithin the time period is included. Anatomical Region Laterality Modality Wrist / Hand Computed Radiogr aphy 06/05/2024 9:43 AM [facility] [employer] [facility] Narrative 06/05/2024 9:46 AM [facility] [employer] [facility] PROCEDURE: XR WRIST RIGHT 3VW OR MORE, [...] CARDIAC RHYTHM STRIP ORDER (05/20/2024 11:40 PM [facility] [employer]) Narrative 05/20/2024 11:40 PM [facility] Ordered by an unspecified provider. Scanned Document CARDIAC SERVICES ORD ERABLES * IMAGING RADIOLOGY XRAY RESULTS ORDER (05/20/2024 7:54 PM [facility]) Anatomical Region Laterality Modality Other Narrative 05/20/2024 7:54 PM [facility] Ordered by an unspecified provider. Scanned Document IMAGING * XR Wrist Right 2Vw (05/18/2024 12:59 PM [facility] [employer] [facility]) Only the most recent of2 resultswithin the time period is included. Anatomical Region Laterality Modality Wrist / Hand Radiographic Rachel ging 05/18/2024 1:04 PM [facility] Impressions 05/18/2024 1:10 PM [facility] [employer] [facility] IMPRESSION: Postop changes. Edited by Yolanda Thakur on 05/18/2024 1:05 PM > Interpreting Provider: Scar Quach MD on 05/18/2024 1:10 PM Narrative 05/18/2024 1:10 PM [facility] [employer] PROCEDURE: XR WRIST RIGHT 2VW DATE/TIME OF [...] * [place] Cynthia Surgery (05/18/2024 11:51 AM [facility] A[employer] LABOR) Narrative [facility] RADIOLOGY - 05/19/2024 11:51 AM [facility] LABOR For details of this study, please see the providers note. Abel Sanches MD FLUOROSCOPY ORDERABL ES Performing Organization Address City/State/[facility] Co de Phone Number [facility] RADIOLOGY [address] [place] [address] * Peripheral Nerve Block (05/18/2024 10:01 AM [facility] [employer] [facility] [facility]) Narrative Shahab Lange DO - 05/18/2024 10:01 AM [facility] [employer] [facility] Shahab Lange DO 05/18/2024 10:02 AM Peripheral [...] * CARDIAC EKG ORDER (05/11/2024 11:34 AM [facility] A[employer] LABOR) Narrative 05/11/2024 11:34 AM [facility] [facility] [facility] Ordered by an unspecified provider. Scanned Document CARDIAC SERVICES ORD ERABLES * CT Wrist Right Wo Contrast (05/09/2024 1:00 AM [facility] [employer] A[employer] LAB[facility]) Anatomical Region Laterality Modality Wrist / Hand Computed Tomogra phy 05/09/2024 1:20 AM [facility] [employer] [facility] Impressions 05/09/2024 9:55 AM [facility] IMPRESSION: 1.Interval closed reduction and splinting of [...] Report dictated by Joe Lopes M.D. (Interventional radiology resident) 05/09/2024 1:26 AM Jailyn Bonner MD have personally reviewed and interpreted this examination/study. > Interpreting Provider: Jailyn Espino MD on 05/09/2024 9:55 AM Narrative 05/09/2024 9:55 AM [facility] PROCEDURE: CT WRIST RIGHT WO CONTRAST, DATE/TIME [...] Report dictated by Joe Lopes M.D. (Interventional radiology resident) 05/09/2024 1:26 AM Jailyn Bonner MD have personally reviewed and interpreted this examination/study. > Interpreting Provider: Jailyn Espino MD on 05/09/2024 9:55 AM Dominic Jeong MD CT ORDERABLES * XR Elbow Right 2Vw (05/08/2024 11:59 PM [facility] [employer] [facility] [facility]) Anatomical Region Laterality Modality Upper Extremity Digital Radiogra phy 05/09/2024 12:0 8 AM [facility] [employer] [facility] [facility]OR Impressions 05/09/2024 2:06 PM [facility] IMPRESSION: Fractures of the distal radius and ulna as previously described. > Dictated by Joel Craft DO, (vice president of recruiting). Jailyn Bonner MD have personally reviewed and interpreted this examination/study. > Interpreting Provider: Jailyn Espino MD on 05/09/2024 2:06 PM Narrative 05/09/2024 2:06 PM [facility] [employer] PROCEDURE: XR FOREARM RIGHT 2VW OR MORE, [...] described. > Dictated by Joel Craft DO, (vice president of recruiting). IJailyn MD have personally reviewed and interpreted this examination/study. > Interpreting Provider: Jailyn Espino MD on 05/09/2024 2:06 PM Dominic Jeong MD DIAGNOSTIC IMAGING O RDERABLES * XR Forearm Right 2Vw or More (05/08/2024 11:59 PM [facility] [employer] [facility]) Anatomical Region Laterality Modality Upper Extremity Digital Radiogra phy 05/09/2024 12:0 8 AM [facility] [employer] Impressions 05/09/2024 2:06 PM [facility] IMPRESSION: Fractures of the distal radius and ulna as previously described. > Dictated by Joel Craft DO (vice president of recruiting). Jailyn Bonner MD have personally reviewed and interpreted this examination/study. > Interpreting Provider: Jailyn Espino MD on 05/09/2024 2:06 PM Narrative 05/09/2024 2:06 PM [facility] [employer] [facility] PROCEDURE: XR FOREARM RIGHT 2VW OR MORE, [...] described. > Dictated by Joel Craft DO (vice president of recruiting). Jailyn Bonner MD have personally reviewed and interpreted this examination/study. > Interpreting Provider: Jailyn Espino MD on 05/09/2024 2:06 PM Dominic Jeong MD DIAGNOSTIC IMAGING O RDERABLES * (ABNORMAL) CBC W AUTO DIFFERENTIAL (05/08/2024 5:10 PM [facility]) WBC 8.7 4.0 - 10.7 x10E9/L 05/08/2024 5:30 [address] [facility] RBC Count 4.67 3.90 - 5.20 x10E12/L 05/08/2024 5:30 PM [facility] Hemoglobin 14.6 11.9 - 15.8 g/dL 05/08/2024 5:30 PM [facility] Hematocrit 43.9 34.8 - 46.1 % 05/08/2024 5:30 PM [facility] MCV 94.0 80.0 - 98.0 fL 05/08/2024 5:30 PM [facility] MCH 31.3 26.7 - 33.6 pg 05/08/2024 5:30 PM [facility] MCHC 33.3 31.7 - 36.3 g/dL 05/08/2024 5:30 PM [facility] RDW-CV 12.8 11.3 - 14.8 % 05/08/2024 5:30 PM [facility] Platelet Count 249 150 - 420 x10E9/L 05/08/2024 5:30 PM [facility] MPV 10.6 7.8 - 11.4 fL 05/08/2024 5:30 PM [facility] Neutrophil % 78.1(H) 41.0 - 74.0 % 05/08/2024 5:30 PM [facility] Lymphocyte % 16.6(L) 17.0 - 47.0 % 05/08/2024 5:30 PM [facility] Monocyte % 4.7 3.0 - 11.0 % 05/08/2024 5:30 PM [facility] Eosinophil % 0.1 0.0 - 7.0 % 05/08/2024 5:30 PM [facility] Basophil % 0.3 0.0 - 1.6 % 05/08/2024 5:30 PM [facility] Immature Granulocytes % 0.2 0.0 - 1.0 % 05/08/2024 5:30 PM [facility] Neutrophil Absolute 6.80 1.60 - 7.50 x10E9/L 05/08/2024 5:30 PM [facility] Lymphocyte Absolute 1.45 1.00 - 4.40 x10E9/L 05/08/2024 5:30 PM [facility] Monocyte Absolute 0.41 0.15 - 1.00 x10E9/L 05/08/2024 5:30 PM [facility] Eosinophil Absolute 0.01 0.00 - 0.60 x10E9/L 05/08/2024 5:30 PM [facility] Basophil Absolute 0.03 0.00 - 0.13 x10E9/L 05/08/2024 5:30 PM [facility] Blood BLOOD SPECIMEN / Unknown Venipuncture / Unknown 05/08/2024 5:10 PM [facility] 05/08/2024 5:26 PM [facility] Vanessa Avery HOME SECURITY ALARM INSTALLER-MUSHROOM CUTTER LAB - HEMATO LOGY ORDERABLES Performing Organization Address City/State/[facility] Co de Phone Number [facility] [address] [place] [phone], [facility] [phone] * (ABNORMAL) COMPREHENSIVE METABOLIC PANEL (05/08/2024 5:10 PM [facility]) BUN 19 7 - 26 mg/dL 05/08/2024 5:59 PM [facility] Creatinine 0.70 0.56 - 0.96 mg/dL 05/08/2024 5:59 PM [facility] Sodium 143 136 - 145 mmol/L 05/08/2024 5:59 PM [facility] Potassium 3.8 3.5 - 4.5 mmol/L 05/08/2024 5:59 PM [facility] Chloride 101 98 - 107 mmol/L 05/08/2024 5:59 PM [facility] CO2 30(H) 22 - 29 mmol/L 05/08/2024 5:59 PM [facility] Glucose 109(H) 70 - 99 mg/dL 05/08/2024 5:59 PM [facility] Calcium 9.5 8.4 - 10.2 mg/dL 05/08/2024 5:59 PM [facility] Protein Total 6.7 6.0 - 8.3 g/dL 05/08/2024 5:59 PM [facility] Albumin 4.0 3.4 - 5.0 g/dL 05/08/2024 5:59 PM [facility] Bilirubin Total 0.4 0.2 - 1.2 mg/dL 05/08/2024 5:59 PM [facility] Alkaline Phosphatase 81 40 - 150 U/L 05/08/2024 5:59 PM [facility] ALT 15 5 - 55 U/L 05/08/2024 5:59 PM [facility] AST 21 5 - 34 U/L 05/08/2024 5:59 PM [facility] Anion Gap 12 6 - 16 05/08/2024 5:59 PM [facility] BUN/Creatinine Ratio 27(H) 7 - 23 05/08/2024 5:59 PM [facility] Osmolality Calculated 299(H) 275 - 295 mOsm/kg 05/08/2024 5:59 PM [facility] Albumin/Globulin Ratio 1.5 1.1 - 2.3 05/08/2024 5:59 PM [facility] eGFR by CKD-EPI 85(L) >=90 mL/min/1.7 3 m2 05/08/2024 5:59 PM [facility] Blood BLOOD SPECIMEN / Unknown Venipuncture / Unknown 05/08/2024 5:10 PM [facility] 05/08/2024 5:26 PM [facility] Vanessa Avery HOME SECURITY ALARM INSTALLER-MUSHROOM CUTTER LAB - CHEMIS TRY ORDERABLES [facility] [address] [place] [phone], [facility] [phone] * EKG 12-LEAD (05/08/2024 5:03 PM [facility]) Ventricular Rate 85 BPM [facility] Atrial Rate 85 BPM [facility] P-R Interval 140 ms [facility] QRS Duration ms 82 ms [facility] Q-T Interval ms 380 ms [facility] QTC Calculation (Bezet) 452 ms [facility] Calculated P [place] 74 degrees [facility] Calculated R [place] 19 degrees [facility] Calculated T [place] -5 degrees [facility] Interpretation EKG SINUS RHYTHM WITH PREMATURE ATRIAL COMPLEXES NONSPECIFIC ST AND T WAVE ABNORMALITY ABNORMAL ECG NO PREVIOUS ECGS AVAILABLE Confirmed by SADAF GRIFFIN MD ([id number]) on 05/10/2024 11:18:[address] [facility] MUSE 05/08/2024 5:03 PM [facility] 05/10/2024 11:18 AM [facility] Vanessa Avery HOME SECURITY ALARM INSTALLER-MUSHROOM CUTTER ECG ORDERABL ES [facility] MUSE from Last 3 Months Care Teams Husbandry Technician Relationship Specialty Start Date End Date Quan Arriaza MD [address] [place] [address] (work) PCP - General Internal Medicine 05/02/24
--- OUTSIDE RECORDS SUMMARY | 2024-06-18 09:32 | XMS_ITS | Patient Health Summary ---
Author Organization [facility] [place] Address [address] [place] [address] Care Team Providers Care Rail Walker Name Role Phone Quan Arriaza MD Primary Care Provider [phone] Note from [facility],non-owned Affiliates and Associated Physician Practices is amultiple site organization consisting of ambulatory clinics and hospital sitesin [place], [place], [place] and [place]. This disclosure is being madepursuant to the Care Everywhere program and may not contain all information available regarding this patient. Last updated 18.[facility] [place] Allergies No known active allergies Medications * Be aware that medications may not be up to date on this document. Alwaysverify current medications with the patient. * HYDROcodone-acetaminophen (Hermon) 5-325 MG tablet(Started 05/09/2024) Take 1 (one) [...] (one) tablet by mouth at bedtime * [place]-3 Fatty Acids (fish oil) 500 MG capsule [...] (4000 mg) / 24 hours. * HYDROcodone-acetaminophen (Hermon) 5-325 MG tablet(Started 05/18/2024) Take 1 (one) [...] Comments Blood Pressure 163/66 05/18/2024 1:52 PM SALES TRAINING REPRESENTATIVE Pulse 63 05/18/2024 1:52 PM SALES TRAINING REPRESENTATIVE Temperature 36.4 C (97.5 F) 05/18/2024 1:12 PM SALES TRAINING REPRESENTATIVE Respiratory Rate 16 05/18/2024 1:52 PM SALES TRAINING REPRESENTATIVE Oxygen Saturation 95% 05/18/2024 1:52 PM SALES TRAINING REPRESENTATIVE Inhaled Oxygen Concentration - - Weight 63.5 kg (140 lb) 05/18/2024 9:15 AM SALES TRAINING REPRESENTATIVE Height 167.6 cm (5' 6 ) 05/18/2024 9:15 AM SALES TRAINING REPRESENTATIVE Body Mass Index 22.6 05/18/2024 9:15 AM SALES TRAINING REPRESENTATIVE Medical Devices Implanted Type Area Front Services Agent Device Identifier Shelf Expiration Date Model / Serial / Lot Lifenethealth Modlable Emineralized Fibers Implanted:Qty: 1 on 05/18/2024 by Abel Sanches MD at [facility] Right: Wrist 08/23/2027 -1799-04 / ID: [id number] / 2.7 Cortx Screw Implanted:Qty: 1 on 05/18/2024 by Abel Sanches MD at [facility] Right: Wrist 874 / / Distal Radius Plate Implanted:Qty: 1 on 05/18/2024 by Abel Sanches MD at [facility] Right: Wrist .111.630 / / 2.4 Va Locking Screw Implanted:Qty: 1 on 05/18/2024 by Abel Sanches MD at [facility] Right: Wrist .210.120 / / 2.4 Locking Screw Implanted:Qty: 2 on 05/18/2024 by Abel Sanches MD at [facility] Right: Wrist .210.114 / / Screw 2.4mm 18mm T8 Slf-Tap Lck Va Strdr Implanted:Qty: 2 on 05/18/2024 by Abel Sanches MD at [facility] Right: Wrist Synthes [employer] .210.118 / / 2.4 Va Locking Screw Implanted:Qty: 1 on 05/18/2024 by Abel Sanches MD at [facility] Right: Wrist 02.210.114 / / Explanted Type Area Front Services Agent Device Identifier Shelf Expiration Date Model / Serial / Lot Screw 2.4mm 14mm T8 Cortx Slf-Tap Strdr Explanted:Qty: 1 on 05/18/2024 at [facility] Right: Wrist Synthes [employer]sa 201.764 / / 2.4 Va Locking Screen Explanted:Qty: 1 on 05/18/2024 by Abel Sanches MD at [facility] Right: Wrist 02.210.114 / / 2.7 Cortx Screw Explanted:Qty: 1 on 05/18/2024 by Abel Sanches MD at [facility] Right: Wrist 202.872 / / Procedures * XR WRIST RIGHT 3VW OR MORE(Performed 06/05/2024) Performed for Traumatic closed displaced fracture of distal end of radius, right, initial encounter * CARDIAC RHYTHM STRIP ORDER(Performed 05/20/2024) * IMAGING/RADIOLOGY/XRAY RESULTS ORDER(Performed 05/20/2024) * XR WRIST RIGHT 2VW(Performed 05/18/2024) Performed for Pain * FL CYNTHIA SURGERY(Performed 05/18/2024) Performed for Pain * PERIPHERAL BLOCK(Performed 05/18/2024) * [place] WRIST ARTHROSCOP,RELEASE XVERS LIG(Performed 05/18/2024) Performed for Diagnosis unknown * [place] OPTX DSTL RADL X-ARTIC FX/EPIPHYSL SEP(Performed 05/18/2024) [...] Right 3Vw or More (06/05/2024 9:14 AM SALES TRAINING REPRESENTATIVE) Only the most recent of3 resultswithin the time period is included. Anatomical Region Laterality Modality Wrist / Hand Computed Radiogr aphy 06/05/2024 9:43 AM SALES TRAINING REPRESENTATIVE Narrative 06/05/2024 9:46 AM SALES TRAINING REPRESENTATIVE PROCEDURE: XR WRIST RIGHT 3VW OR MORE, DATE/TIME OF EXAM: 06/05/2024 9:14 AM, LOCATION [facility] INDICATION: S52.501A: Traumatic closed displaced fracture of [...] MD on 06/05/2024 9:46 AM Procedure Note Domincik Mcclellan MD - 06/05/2024 PROCEDURE: XR WRIST RIGHT 3VW OR MORE, DATE/TIME OF EXAM: 59:14 AM, LOCATION [facility] INDICATION: S52.501A: Traumatic closed displaced fracture of [...] CARDIAC RHYTHM STRIP ORDER (05/20/2024 11:40 PM SALES TRAINING REPRESENTATIVE) Narrative 05/20/2024 11:40 PM SALES TRAINING REPRESENTATIVE Ordered by an unspecified provider. Scanned Document CARDIAC SERVICES ORD ERABLES * IMAGING RADIOLOGY XRAY RESULTS ORDER (05/20/2024 7:54 PM SALES TRAINING REPRESENTATIVE) Anatomical Region Laterality Modality Other Narrative 05/20/2024 7:54 PM SALES TRAINING REPRESENTATIVE Ordered by an unspecified provider. Scanned Document IMAGING * XR Wrist Right 2Vw (05/18/2024 12:59 PM SALES TRAINING REPRESENTATIVE) Only the most recent of2 resultswithin the time period is included. Anatomical Region Laterality Modality Wrist / Hand Radiographic Rachel ging 05/18/2024 1:04 PM SALES TRAINING REPRESENTATIVE Impressions 05/18/2024 1:10 PM SALES TRAINING REPRESENTATIVE IMPRESSION: Postop changes. Edited by Yolanda Thakur on 05/18/2024 1:05 PM > Interpreting Provider: Scar Quach MD on 05/18/2024 1:10 PM Narrative 05/18/2024 1:10 PM SALES TRAINING REPRESENTATIVE PROCEDURE: XR WRIST RIGHT 2VW DATE/TIME OF [...] * FL Cynthia Surgery (05/18/2024 11:51 AM SALES TRAINING REPRESENTATIVE) Narrative [facility] - 05/19/2024 11:51 AM SALES TRAINING REPRESENTATIVE For details of this study, please see the providers note. Abel Sanches MD FLUOROSCOPY ORDERABL ES [facility] [address] [place] [address] * Peripheral Nerve Block (05/18/2024 10:01 AM SALES TRAINING REPRESENTATIVE) Narrative Shahab Lange DO - 05/18/2024 10:01 AM SALES TRAINING REPRESENTATIVE Shahab Lange DO 05/18/2024 10:02 AM Peripheral [...] * CARDIAC EKG ORDER (05/11/2024 11:34 AM SALES TRAINING REPRESENTATIVE) Narrative 05/11/2024 11:34 AM SALES TRAINING REPRESENTATIVE Ordered by an unspecified provider. Scanned Document CARDIAC SERVICES ORD ERABLES * CT Wrist Right Wo Contrast (05/09/2024 1:00 AM SALES TRAINING REPRESENTATIVE) Anatomical Region Laterality Modality Wrist / Hand Computed Tomogra phy 05/09/2024 1:20 AM SALES TRAINING REPRESENTATIVE Impressions 05/09/2024 9:55 AM SALES TRAINING REPRESENTATIVE IMPRESSION: 1.Interval closed reduction and splinting of [...] dictated by Joe Lopes M.D. (Interventional vice president quality) 05/09/2024 1:26 AM Jailyn Bonner MD have personally reviewed and interpreted this examination/study. > Interpreting Provider: Jailyn Espino MD on 05/09/2024 9:55 AM Narrative 05/09/2024 9:55 AM SALES TRAINING REPRESENTATIVE PROCEDURE: CT WRIST RIGHT WO CONTRAST, DATE/TIME OF EXAM: 05/09/2024 1:01 AM, LOCATION [facility] INDICATION: S69.91XA: Injury of right wrist, initial [...] CONTRAST, DATE/TIME OF EXAM: :01 AM, LOCATION [facility] INDICATION: S69.91XA: Injury of right wrist, initial [...] dictated by Joe Lopes M.D. (Interventional vice president quality) 05/09/2024 1:26 AM Jailyn Bonner MD have personally reviewed and interpreted this examination/study. > Interpreting Provider: Jailyn Espino MD on 05/09/2024 9:55 AM [address]ic Jeong MD CT ORDERABLES * XR Elbow Right 2Vw (05/08/2024 11:59 PM SALES TRAINING REPRESENTATIVE) Anatomical Region Laterality Modality Upper Extremity Digital Radiogra phy 05/09/2024 12:0 8 AM SALES TRAINING REPRESENTATIVE Impressions 05/09/2024 2:06 PM SALES TRAINING REPRESENTATIVE IMPRESSION: Fractures of the distal radius and ulna as previously described. > Dictated by Joel Craft DO, (radiology tech). Jailyn Bonner MD have personally reviewed and interpreted this examination/study. > Interpreting Provider: Jailyn Espino MD on 05/09/2024 2:06 PM Narrative 05/09/2024 2:06 PM SALES TRAINING REPRESENTATIVE PROCEDURE: XR FOREARM RIGHT 2VW OR MORE, XR ELBOW RIGHT 2VW, DATE/TIME OF EXAM: 05/08/2024 11:59 PM, LOCATION [facility] INDICATION: S69.91XA: Injury of right wrist, initial [...] 2VW, DATE/TIMEOF EXAM: 05/08/2024 11:59 PM, LOCATION [facility] INDICATION: S69.91XA: Injury of right wrist, initial [...] described. > Dictated by Joel Craft DO (radiology tech). Jailyn Bonner MD have personally reviewed and interpreted this examination/study. > Interpreting Provider: Jailyn Espino MD on 05/09/2024 2:06 PM Dominic Jeong MD DIAGNOSTIC IMAGING O RDERABLES * XR Forearm Right 2Vw or More (05/08/2024 11:59 PM SALES TRAINING REPRESENTATIVE) Anatomical Region Laterality Modality Upper Extremity Digital Radiogra phy 05/09/2024 12:0 8 AM SALES TRAINING REPRESENTATIVE Impressions 05/09/2024 2:06 PM SALES TRAINING REPRESENTATIVE IMPRESSION: Fractures of the distal radius and ulna as previously described. > Dictated by Joel Craft DO (radiology tech). Jailyn Bonner MD have personally reviewed and interpreted this examination/study. > Interpreting Provider: Jailyn Espino MD on 05/09/2024 2:06 PM Narrative 05/09/2024 2:06 PM SALES TRAINING REPRESENTATIVE PROCEDURE: XR FOREARM RIGHT 2VW OR MORE, XR ELBOW RIGHT 2VW, DATE/TIME OF EXAM: 05/08/2024 11:59 PM, LOCATION [facility] INDICATION: S69.91XA: Injury of right wrist, [...] 2VW, DATE/TIMEOF EXAM: 05/08/2024 11:59 PM, LOCATION [facility] INDICATION: S69.91XA: Injury of right wrist, initial [...] described. > Dictated by Joel Craft DO, (radiology tech). IJailyn MD have personally reviewed and interpreted this examination/study. > Interpreting Provider: Jailyn Espino MD on 05/09/2024 2:06 PM Dominic Jeong MD DIAGNOSTIC IMAGING O RDERABLES * (ABNORMAL) CBC W AUTO DIFFERENTIAL (05/08/2024 5:10 PM SALES TRAINING REPRESENTATIVE) [facility] WBC 8.7 4.0 - 10.7 x10E9/L 05/08/2024 5:30 PM SALES TRAINING REPRESENTATIVE [facility] RBC Count 4.67 3.90 - 5.20 x10E12/L 05/08/2024 5:30 PM [facility] Hemoglobin 14.6 11.9 - 15.8 g/dL 05/08/2024 5:30 PM [facility] Hematocrit 43.9 34.8 - 46.1 % 05/08/2024 5:30 PM [facility] MCV 94.0 80.0 - 98.0 fL 05/08/2024 5:30 PM [facility] MCH 31.3 26.7 - 33.6 pg 05/08/2024 5:30 PM [facility] MCHC 33.3 31.7 - 36.3 g/dL 05/08/2024 5:30 PM [facility] RDW-CV 12.8 11.3 - 14.8 % 05/08/2024 5:30 PM [facility] Platelet Count 249 150 - 420 x10E9/L 05/08/2024 5:30 PM [facility] MPV 10.6 7.8 - 11.4 fL 05/08/2024 5:30 PM [facility] Neutrophil % 78.1(H) 41.0 - 74.0 % 05/08/2024 5:30 PM [facility] Lymphocyte % 16.6(L) 17.0 - 47.0 % 05/08/2024 5:30 PM [facility] Monocyte % 4.7 3.0 - 11.0 % 05/08/2024 5:30 PM [facility] Eosinophil % 0.1 0.0 - 7.0 % 05/08/2024 5:30 PM [facility] Basophil % 0.3 0.0 - 1.6 % 05/08/2024 5:30 PM [facility] Immature Granulocytes % 0.2 0.0 - 1.0 % 05/08/2024 5:30 PM [facility] Neutrophil Absolute 6.80 1.60 - 7.50 x10E9/L 05/08/2024 5:30 PM [facility] Lymphocyte Absolute 1.45 1.00 - 4.40 x10E9/L 05/08/2024 5:30 PM [facility] Monocyte Absolute 0.41 0.15 - 1.00 x10E9/L 05/08/2024 5:30 PM [facility] Eosinophil Absolute 0.01 0.00 - 0.60 x10E9/L 05/08/2024 5:30 PM [facility] Basophil Absolute 0.03 0.00 - 0.13 x10E9/L 05/08/2024 5:30 PM [facility] Blood BLOOD SPECIMEN / Unknown Venipuncture / Unknown 05/08/2024 5:10 PM SALES TRAINING REPRESENTATIVE 05/08/2024 5:26 PM [facility] Vanessa Chrissie Avery GRADUATE NURSE-ESCROW CLOSER LAB - HEMATO LOGY ORDERABLES [facility] [address] [place] [phone], [facility] [phone] * (ABNORMAL) COMPREHENSIVE METABOLIC PANEL (05/08/2024 5:10 PM SALES TRAINING REPRESENTATIVE) BUN 19 7 - 26 mg/dL 05/08/2024 5:59 PM [facility] Creatinine 0.70 0.56 - 0.96 mg/dL 05/08/2024 5:59 PM [facility] Sodium 143 136 - 145 mmol/L 05/08/2024 5:59 PM [facility] Potassium 3.8 3.5 - 4.5 mmol/L 05/08/2024 5:59 PM [facility] Chloride 101 98 - 107 mmol/L 05/08/2024 5:59 PM [facility] CO2 30(H) 22 - 29 mmol/L 05/08/2024 5:59 PM [facility] Glucose 109(H) 70 - 99 mg/dL 05/08/2024 5:59 PM [facility] Calcium 9.5 8.4 - 10.2 mg/dL 05/08/2024 5:59 PM [facility] Protein Total 6.7 6.0 - 8.3 g/dL 05/08/2024 5:59 PM [facility] Albumin 4.0 3.4 - 5.0 g/dL 05/08/2024 5:59 PM [facility] Bilirubin Total 0.4 0.2 - 1.2 mg/dL 05/08/2024 5:59 PM [facility] Alkaline Phosphatase 81 40 - 150 U/L 05/08/2024 5:59 PM [facility] ALT 15 5 - 55 U/L 05/08/2024 5:59 PM [facility] AST 21 5 - 34 U/L 05/08/2024 5:59 PM [facility] Anion Gap 12 6 - 16 05/08/2024 5:59 PM [facility] BUN/Creatinine Ratio 27(H) 7 - 23 05/08/2024 5:59 PM [facility] Osmolality Calculated 299(H) 275 - 295 mOsm/kg 05/08/2024 5:59 PM [facility] Albumin/Globulin Ratio 1.5 1.1 - 2.3 05/08/2024 5:59 PM [facility] eGFR by CKD-EPI 85(L) >=90 mL/min/1.7 3 m2 05/08/2024 5:59 PM [facility] Blood BLOOD SPECIMEN / Unknown Venipuncture / Unknown 05/08/2024 5:10 PM SALES TRAINING REPRESENTATIVE 05/08/2024 5:26 PM [facility] Vanessa Avery GRADUATE NURSE-ESCROW CLOSER LAB - CHEMIS TRY ORDERABLES Performing Organization Address [facility]/State/ZIP Co de Phone Number [facility] [address] [place] [phone], [facility] [phone] * EKG 12-LEAD (05/08/2024 5:03 PM SALES TRAINING REPRESENTATIVE) Ventricular Rate 85 BPM [facility] Atrial Rate 85 BPM [facility] P-R Interval 140 ms [facility] QRS Duration ms 82 ms [facility] Q-T Interval ms 380 ms [facility] QTC Calculation (Bezet) 452 ms [facility] Calculated P [place] 74 degrees [facility] Calculated R [place] 19 degrees [facility] Calculated T [place] -5 degrees [facility] Interpretation EKG SINUS RHYTHM WITH PREMATURE ATRIAL COMPLEXES NONSPECIFIC ST AND T WAVE ABNORMALITY ABNORMAL ECG NO PREVIOUS ECGS AVAILABLE Confirmed by ELIAS WEBER, SADAF ([id number]) on 05/10/2024 11:18:39 AM [facility] 05/08/2024 5:03 PM SALES TRAINING REPRESENTATIVE 05/10/2024 11:18 AM SALES TRAINING REPRESENTATIVE Vanessa Chrissiedaniel Avery GRADUATE NURSE-ESCROW CLOSER ECG ORDERABL ES [facility] Care Teams Rail Walker Relationship Specialty Start Date End Date Quan Arriaza MD [address] [place], [place] [id number] PCP - General Internal Medicine 05/02/24
--- OUTSIDE RECORDS SUMMARY | 2024-06-18 09:32 | XMS_ITS | Referral Summary ---
Author Organization [facility] [employer] Address [address] [place] [address] Care Team Providers Care Pastry Assistant Name Role Phone Quan Arriaza MD Primary Care Provider [phone] Source Comments [facility],non-owned Affiliates and Associated Physician Practices is amultiple site organization consisting of ambulatory clinics and hospital sitesin [place] and [place]. This disclosure is being madepursuant to the Care Everywhere program and may not contain all information available regarding this patient. Last updated 18.[facility] Encounters Date Type Department Care Team Description 06/10/2024 Orders Only [facility] - Orthopedics [address] [place] [address] Abel Sanches MD Closed fracture of right distal radius and ulna, with routine healing, subsequent encounter 06/08/2024 Travel 06/05/2024 10:30 AM MAILROOM ASSISTANT - 06/05/2024 11:59 PM [facility] Hospital Encounter [facility] OT [address] [place] [address] Abel Sanches MD Reale, Jennifer, OTR/L Discharge Disposition: Home or Self Care 06/05/2024 8:51 AM MAILROOM ASSISTANT - 06/05/2024 10:29 AM [facility] Hospital Encounter [facility] DIAGNOSTIC RAD CSM [address] [facility] [place] [address] Abel Sanches MD Discharge Disposition: Home or Self Care 06/05/2024 Travel 06/05/2024 9:00 AM MAILROOM ASSISTANT Office Visit [facility] - Orthopedics [address] [place] [phone] Abel Sanches MD Closed fracture of right distal radius and ulna, with routine healing, subsequent encounter (Primary Dx) 05/19/2024 Orders Only [facility] - Orthopedics [address] [place] [phone] Abel Sanches MD Traumatic closed displaced fracture of distal end of radius, right, initial encounter 05/18/2024 Travel 05/18/2024 10:02 AM MAILROOM ASSISTANT Anesthesia Event [facility] PERIOPERATIVE [address] [place] [address] Conrad Flood MD Shaw, Thomas J, DO 05/18/2024 12:44 PM MAILROOM ASSISTANT - 05/18/2024 4:04 PM MAILROOM ASSISTANT Surgery [facility] [address] [place] [address] Abel Sanches MD DISTAL RADIUS OPEN REDUCTION INTERNAL FIXATION 05/18/2024 8:37 AM MAILROOM ASSISTANT - 05/18/2024 2:33 PM MAILROOM ASSISTANT Hospital Encounter [facility] [address] [place] [address] Abel Sanches MD Surgery General Discharge Disposition: Home or Self Care 05/13/2024 Travel 05/12/2024 9:10 AM MAILROOM ASSISTANT - 05/12/2024 11:59 PM MAILROOM ASSISTANT Hospital Encounter [facility] DIAGNOSTIC RAD CSM [address] [place] [phone] Abel Sanches MD Discharge Disposition: Home or Self Care 05/12/2024 Travel 05/12/2024 9:00 AM MAILROOM ASSISTANT Office Visit [facility] - Orthopedics [address] [place] [phone] Abel Sanches MD Traumatic closed displaced fracture of distal end of radius, right, initial encounter (Primary Dx); Acute carpal tunnel syndrome of right wrist 05/11/2024 Orders Only [facility] - [facility]opedics [address] [place] [address], [place] [phone] Abel Sanches MD Right wrist pain 05/11/2024 Travel 05/08/2024 11:03 PM MAILROOM ASSISTANT - 05/09/2024 2:40 AM [facility] Emergency [facility] EMERGENCY DEPARTMENT [address] [place] [address] Dominic Jeong MD Irregularly irregular pulse rhythm; Injury of right wrist, initial encounter Discharge Disposition: Home or Self Care from Last 3 Months Allergies No known active allergies Medications * Be aware that medications may not be up to date on this document. Alwaysverify current medications with the patient. Medication Sig Dispensed Refills Start Date End Date Status HYDROcodone-acetam inophen ([place]) 5-325 MG tabletIndications: Irregularly irregular pulse rhythm,Injury [...] (one) tablet by mouth at bedtime Active [place]-3 Fatty Acids (fish oil) 500 MG capsule [...] / 24 hours. 05/18/2024 Active HYDROcodone-acetam inophen ([place]) 5-325 MG tabletIndications: Pain Take 1 (one) [...] Comments Blood Pressure 163/66 05/18/2024 1:52 PM MAILROOM ASSISTANT Pulse 63 05/18/2024 1:52 PM MAILROOM ASSISTANT Temperature 36.4 C (97.5 F) 05/18/2024 1:12 PM MAILROOM ASSISTANT Respiratory Rate 16 05/18/2024 1:52 PM MAILROOM ASSISTANT Oxygen Saturation 95% 05/18/2024 1:52 PM MAILROOM ASSISTANT Inhaled Oxygen Concentration - - Weight 63.5 kg (140 lb) 05/18/2024 9:15 AM MAILROOM ASSISTANT Height 167.6 cm (5' 6 ) 05/18/2024 9:15 AM MAILROOM ASSISTANT Body Mass Index 22.6 05/18/2024 9:15 AM MAILROOM ASSISTANT Plan of Treatment Upcoming Encounters Date Type Department Care Team (Late st Contact Info) Description 07/03/2024 9:00 AM MAILROOM ASSISTANT Office Visit [facility] - Orthopedics [facility] [facility] [place] [address] Abel Sanches MD [address] [facility] [address] [place] [address] Medical Devices Implanted Type Area Shock Absorption Floor Layer Device Identifier Shelf Expiration Date Model / Serial / Lot Lifenethealth Modlable Emineralized Fibers Implanted:Qty: 1 on 05/18/2024 by Abel Sanches MD at [facility] Right: Wrist 08/23/2027 / ID: [id number] / 2.7 Cortx Screw Implanted:Qty: 1 on 05/18/2024 by Abel Sanches MD at [facility] Right: Wrist .874 / / Distal Radius Plate Implanted:Qty: 1 on 05/18/2024 by Abel Sanches MD at [facility] Right: Wrist 111.630 / / 2.4 Va Locking Screw Implanted:Qty: 1 on 05/18/2024 by Abel Sanches MD at [facility] Right: Wrist .210.120 / / 2.4 Locking Screw Implanted:Qty: 2 on 05/18/2024 by Abel Sanches MD at [facility] Right: Wrist 210.114 / / Screw 2.4mm 18mm T8 Slf-Tap Lck Va Strdr Implanted:Qty: 2 on 05/18/2024 by Abel Sanches MD at [facility] Right: Wrist Synthes Usa .210.118 / / 2.4 Va Locking Screw Implanted:Qty: 1 on 05/18/2024 by Abel Sanches MD at [facility] Right: Wrist .210.114 / / Explanted Type Area Shock Absorption Floor Layer Device Identifier Shelf Expiration Date Model / Serial / Lot Screw 2.4mm 14mm T8 Cortx Slf-Tap Strdr Explanted:Qty: 1 on 05/18/2024 at [facility] Right: Wrist Synthes Usa [id number] / / 2.4 Va Locking Screen Explanted:Qty: 1 on 05/18/2024 by Abel Sanches MD at [facility] Right: Wrist [id number] / / 2.7 Cortx Screw Explanted:Qty: 1 on 05/18/2024 by Abel Sanches MD at [facility] Right: Wrist 202.872 / / Procedures Procedure Name Priority Date/Time Associated Diagnosis Comments XR WRIST RIGHT 3VW OR MORE Routine 06/05/2024 9:14 AM MAILROOM ASSISTANT Traumatic closed displaced fracture of distal end of radius, right, initial encounter CARDIAC RHYTHM STRIP ORDER 05/20/2024 11:40 PM MAILROOM ASSISTANT IMAGING/RADIOLOGY/XR AY RESULTS ORDER 05/20/2024 7:54 PM MAILROOM ASSISTANT XR WRIST RIGHT 2VW STAT 05/18/2024 12 :59 PM MAILROOM ASSISTANT Pain FL CYNTHIA SURGERY Routine 05/18/2024 11:51 AM MAILROOM ASSISTANT Pain PERIPHERAL BLOCK Routine 05/18/2024 10:0 1 AM MAILROOM ASSISTANT GA WRIST ARTHROSCOP,RELEASE XVERS LIG 05/18/2024 9:20 AM MAILROOM ASSISTANT Diagnosis unknown Special Needs NEEDS MINI C-ARM, SYNTHES--REP. (ANA MARIA # [phone]) AND ARTHREX--REP. (YOVANY # [phone])--BOTH REPS NOTIFIED BY SURGEON PER OFFICE (NU)---05/13 KW -REPS EMAILED 05/13 GA OPTX DSTL RADL X-ARTIC FX/EPIPHYSL SEP 05/18/2024 9:20 AM MAILROOM ASSISTANT Diagnosis unknown Special Needs NEEDS MINI C-ARM, SYNTHES--REP. (ANA MARIA # [phone]) AND ARTHREX--REP. (YOVANY # [phone])--BOTH REPS NOTIFIED BY SURGEON PER OFFICE (NU)---05/13 KW -REPS EMAILED 05/13 WC XR WRIST RIGHT 3VW OR MORE Routine 05/12/2024 9:13 AM MAILROOM ASSISTANT Right wrist pain CARDIAC EKG ORDER 05/11/2024 11: [address] WRIST RIGHT WO CONTRAST STAT 05/09/2024 1:00 AM MAILROOM ASSISTANT Injury of right wrist, initial encounter XR WRIST RIGHT 2VW STAT 05/09/2024 12 :40 AM MAILROOM ASSISTANT Injury of right wrist, initial encounter XR ELBOW RIGHT 2VW STAT 05/08/2024 11 :59 PM MAILROOM ASSISTANT Injury of right wrist, initial encounter XR FOREARM RIGHT 2VW OR MORE STAT 05/08/2024 11:59 PM MAILROOM ASSISTANT Injury of right wrist, initial encounter XR WRIST RIGHT 3VW OR MORE STAT 05/08/2024 7:28 PM MAILROOM ASSISTANT Injury of right wrist, initial encounter COMPREHENSIVE METABOLIC PANEL STAT 05/08/2024 5:10 PM MAILROOM ASSISTANT CBC W AUTO DIFFERENTIAL STAT 05/08/2024 5:10 PM MAILROOM ASSISTANT EKG 12-LEAD STAT 05/08/2024 5:03 PM MAILROOM ASSISTANT Irregularly irregular pulse rhythm from Last 3 Months Results * XR Wrist Right 3Vw or More (06/05/2024 9:14 AM MAILROOM ASSISTANT) Only the most recent of3 resultswithin the time period is included. Anatomical Region Laterality Modality Wrist / Hand Computed Radiogr aphy 06/05/2024 9:43 AM MAILROOM ASSISTANT Narrative 06/05/2024 9:46 AM MAILROOM ASSISTANT PROCEDURE: XR WRIST RIGHT 3VW OR MORE, DATE/TIME OF EXAM: 06/05/2024 9:14 AM, LOCATION [facility] INDICATION: S52.501A: Traumatic closed displaced [...] MORE, DATE/TIME OF EXAM: 59:14 AM, LOCATION [facility] INDICATION: S52.501A: Traumatic closed displaced [...] CARDIAC RHYTHM STRIP ORDER (05/20/2024 11:40 PM MAILROOM ASSISTANT) Narrative 05/20/2024 11:40 PM MAILROOM ASSISTANT Ordered by an unspecified provider. Scanned Document CARDIAC SERVICES ORD ERABLES * IMAGING RADIOLOGY XRAY RESULTS ORDER (05/20/2024 7:54 PM MAILROOM ASSISTANT) Anatomical Region Laterality Modality Other Narrative 05/20/2024 7:54 PM MAILROOM ASSISTANT Ordered by an unspecified provider. Scanned Document IMAGING * XR Wrist Right 2Vw (05/18/2024 12:59 PM MAILROOM ASSISTANT) Only the most recent of2 resultswithin the time period is included. Anatomical Region Laterality Modality Wrist / Hand Radiographic Rachel ging 05/18/2024 1:04 PM MAILROOM ASSISTANT Impressions 05/18/2024 1:10 PM MAILROOM ASSISTANT IMPRESSION: Postop changes. Edited by Yolanda Thakur on 05/18/2024 1:05 PM > Interpreting Provider: Scar Quach MD on 05/18/2024 1:10 PM Narrative 05/18/2024 1:10 PM MAILROOM ASSISTANT PROCEDURE: XR WRIST RIGHT 2VW DATE/TIME OF [...] * FL Cynthia Surgery (05/18/2024 11:51 AM MAILROOM ASSISTANT) Narrative [facility] RADIOLOG[facility] - 05/19/2024 11:51 AM MAILROOM ASSISTANT For details of this study, please see the providers note. Abel Sanches MD FLUOROSCOPY ORDERABL ES [facility] RADIOLOG[facility] [address] [place] [address] * Peripheral Nerve Block (05/18/2024 10:01 AM MAILROOM ASSISTANT) Narrative Shahab Lange DO - 05/18/2024 10:01 AM MAILROOM ASSISTANT Shahab Lange DO 05/18/2024 10:02 AM Peripheral [...] * CARDIAC EKG ORDER (05/11/2024 11:34 AM MAILROOM ASSISTANT) Narrative 05/11/2024 11:34 AM MAILROOM ASSISTANT Ordered by an unspecified provider. Scanned Document CARDIAC SERVICES ORD ERABLES * CT Wrist Right Wo Contrast (05/09/2024 1:00 AM MAILROOM ASSISTANT) Anatomical Region Laterality Modality Wrist / Hand Computed Tomogra phy 05/09/2024 1:20 AM MAILROOM ASSISTANT Impressions 05/09/2024 9:55 AM MAILROOM ASSISTANT IMPRESSION: 1.Interval closed reduction and splinting of [...] Report dictated by Joe Lopes M.D. (Interventional residential nurse) 05/09/2024 1:26 AM IJailyn MD have personally reviewed and interpreted this examination/study. > Interpreting Provider: Jailyn Espino MD on 05/09/2024 9:55 AM Narrative 05/09/2024 9:55 AM MAILROOM ASSISTANT PROCEDURE: CT WRIST RIGHT WO CONTRAST, DATE/TIME OF EXAM: 05/09/2024 1:01 AM, LOCATION [facility] INDICATION: S69.91XA: Injury of right [...] CONTRAST, DATE/TIME OF EXAM: 51:01 AM, LOCATION [facility] INDICATION: S69.91XA: Injury of right [...] Report dictated by Joe Lopes M.D. (Interventional residential nurse) 05/09/2024 1:26 AM Jailyn Bonner MD have personally reviewed and interpreted this examination/study. > Interpreting Provider: Jailyn Espino MD on 05/09/2024 9:55 AM Dominic Jeong MD CT ORDERABLES * XR Elbow Right 2Vw (05/08/2024 11:59 PM MAILROOM ASSISTANT) Anatomical Region Laterality Modality Upper Extremity Digital Radiogra phy 05/09/2024 12:0 8 AM MAILROOM ASSISTANT Impressions 05/09/2024 2:06 PM MAILROOM ASSISTANT IMPRESSION: Fractures of the distal radius and ulna as previously described. > Dictated by Joel Craft DO, (vice president of news). I, Jailyn Espino MD have personally reviewed and interpreted this examination/study. > Interpreting Provider: Jailyn Espino MD on 05/09/2024 2:06 PM Narrative 05/09/2024 2:06 PM MAILROOM ASSISTANT PROCEDURE: XR FOREARM RIGHT 2VW OR MORE, XR ELBOW RIGHT 2VW, DATE/TIME OF EXAM: 05/08/2024 11:59 PM, LOCATION [facility] INDICATION: S69.91XA: Injury of right [...] 2VW, DATE/TIMEOF EXAM: 05/08/2024 11:59 PM, LOCATION [facility] INDICATION: S69.91XA: Injury of right [...] by Joel Craft DO (vice president of news). Jailyn Bonner MD have personally reviewed and interpreted this examination/study. > Interpreting Provider: Jailyn Espino MD on 05/09/2024 2:06 PM Dominic Jeong MD DIAGNOSTIC IMAGING O RDERABLES * XR Forearm Right 2Vw or More (05/08/2024 11:59 PM MAILROOM ASSISTANT) Anatomical Region Laterality Modality Upper Extremity Digital Radiogra phy 05/09/2024 12:0 8 AM MAILROOM ASSISTANT Impressions 05/09/2024 2:06 PM MAILROOM ASSISTANT IMPRESSION: Fractures of the distal radius and ulna as previously described. > Dictated by Joel Craft DO (vice president of news). Jailyn Bonner MD have personally reviewed and interpreted this examination/study. > Interpreting Provider: Jailyn Espino MD on 05/09/2024 2:06 PM Narrative 05/09/2024 2:06 PM MAILROOM ASSISTANT PROCEDURE: XR FOREARM RIGHT 2VW OR MORE, XR ELBOW RIGHT 2VW, DATE/TIME OF EXAM: 05/08/2024 11:59 PM, LOCATION [facility] INDICATION: S69.91XA: Injury of right [...] 2VW, DATE/TIMEOF EXAM: 05/08/2024 11:59 PM, LOCATION [facility] INDICATION: S69.91XA: Injury of right [...] by Joel Craft DO, (vice president of news). Jailyn Bonner MD have personally reviewed and interpreted this examination/study. > Interpreting Provider: Jailyn Espino MD on 05/09/2024 2:06 PM Dominic Jeong MD DIAGNOSTIC IMAGING O RDERABLES * (ABNORMAL) CBC W AUTO DIFFERENTIAL (05/08/2024 5:10 PM MAILROOM ASSISTANT) WBC 8.7 4.0 - 10.7 x10E9/L 05/08/2024 5:30 PM [facility] RBC Count 4.67 3.90 - 5.20 x10E12/L 05/08/2024 5:30 PM [facility] Hemoglobin 14.6 11.9 - 15.8 g/dL 05/08/2024 5:30 PM [facility] Hematocrit 43.9 34.8 - 46.1 % 05/08/2024 5:30 PM [facility] MCV 94.0 80.0 - 98.0 fL 05/08/2024 5:30 PM [facility] MCH 31.3 26.7 - 33.6 pg 05/08/2024 5:30 PM [facility] MCHC 33.3 31.7 - 36.3 g/dL 05/08/2024 5:30 PM [facility] RDW-CV 12.8 11.3 - 14.8 % 05/08/2024 5:30 PM [facility] Platelet Count 249 150 - 420 x10E9/L 05/08/2024 5:30 PM [facility] MPV 10.6 7.8 - 11.4 fL 05/08/2024 5:30 PM [facility] Neutrophil % 78.1(H) 41.0 - 74.0 % 05/08/2024 5:30 PM [facility] Lymphocyte % 16.6(L) 17.0 - 47.0 % 05/08/2024 5:30 PM [facility] Monocyte % 4.7 3.0 - 11.0 % 05/08/2024 5:30 PM [facility] Eosinophil % 0.1 0.0 - 7.0 % 05/08/2024 5:30 PM [facility] Basophil % 0.3 0.0 - 1.6 % 05/08/2024 5:30 PM [facility] Immature Granulocytes % 0.2 0.0 - 1.0 % 05/08/2024 5:30 PM [facility] Neutrophil Absolute 6.80 1.60 - 7.50 x10E9/L 05/08/2024 5:30 PM [facility] Lymphocyte Absolute 1.45 1.00 - 4.40 x10E9/L 05/08/2024 5:30 PM [facility] Monocyte Absolute 0.41 0.15 - 1.00 x10E9/L 05/08/2024 5:30 PM [facility] Eosinophil Absolute 0.01 0.00 - 0.60 x10E9/L 05/08/2024 5:30 PM [facility] Basophil Absolute 0.03 0.00 - 0.13 x10E9/L 05/08/2024 5:30 PM [facility] Blood BLOOD SPECIMEN / Unknown Venipuncture / Unknown 05/08/2024 5:10 PM [facility] 05/08/2024 5:26 PM MAILROOM ASSISTANT Vanessa Avery SENIOR IOS DEVELOPER-SOLAR PROJECT ENGINEER LAB - HEMATO LOGY ORDERABLES [facility] [address] [place] [address], [facility] [phone] * (ABNORMAL) COMPREHENSIVE METABOLIC PANEL (05/08/2024 5:10 PM MAILROOM ASSISTANT) BUN 19 7 - 26 mg/dL 05/08/2024 5:59 PM [facility] Creatinine 0.70 0.56 - 0.96 mg/dL 05/08/2024 5:59 PM [facility] Sodium 143 136 - 145 mmol/L 05/08/2024 5:59 PM [facility] Potassium 3.8 3.5 - 4.5 mmol/L 05/08/2024 5:59 PM [facility] Chloride 101 98 - 107 mmol/L 05/08/2024 5:59 PM [facility] CO2 30(H) 22 - 29 mmol/L 05/08/2024 5:59 PM [facility] Glucose 109(H) 70 - 99 mg/dL 05/08/2024 5:59 PM [facility] Calcium 9.5 8.4 - 10.2 mg/dL 05/08/2024 5:59 PM [facility] Protein Total 6.7 6.0 - 8.3 g/dL 05/08/2024 5:59 PM [facility] Albumin 4.0 3.4 - 5.0 g/dL 05/08/2024 5:59 PM [facility] Bilirubin Total 0.4 0.2 - 1.2 mg/dL 05/08/2024 5:59 PM [facility] Alkaline Phosphatase 81 40 - 150 U/L 05/08/2024 5:59 PM [facility] ALT 15 5 - 55 U/L 05/08/2024 5:59 PM [facility] AST 21 5 - 34 U/L 05/08/2024 5:59 PM [facility] Anion Gap 12 6 - 16 05/08/2024 5:59 PM [facility] BUN/Creatinine Ratio 27(H) 7 - 23 05/08/2024 5:59 PM [facility] Osmolality Calculated 299(H) 275 - 295 mOsm/kg 05/08/2024 5:59 PM [facility] Albumin/Globulin Ratio 1.5 1.1 - 2.3 05/08/2024 5:59 PM [facility] eGFR by CKD-EPI 85(L) >=90 mL/min/1.7 3 m2 05/08/2024 5:59 PM [facility] Blood BLOOD SPECIMEN / Unknown Venipuncture / Unknown 05/08/2024 5:10 PM MAILROOM ASSISTANT 05/08/2024 5:26 PM MAILROOM ASSISTANT Vanessa CANTU LAB - CHEMIS TRY ORDERABLES Performing Organization Address City/[facility]/ZIP Co de Phone Number [facility] [address] [place] [address], [facility] [phone] * EKG 12-LEAD (05/08/2024 5:03 PM MAILROOM ASSISTANT) Ventricular Rate 85 BPM SL MUSE Atrial Rate 85 BPM [facility] MUSE P-R Interval 140 ms [facility] MUSE QRS Duration ms 82 ms [facility] MUSE Q-T Interval ms 380 ms [facility] MUSE QTC Calculation (Bezet) 452 ms SL MUSE Calculated P [place] 74 degrees SL MUSE Calculated R [place] 19 degrees [facility] MUSE Calculated T [place] -5 degrees [facility] MUSE Interpretation EKG SINUS RHYTHM WITH PREMATURE ATRIAL COMPLEXES NONSPECIFIC ST AND T WAVE ABNORMALITY ABNORMAL ECG NO PREVIOUS ECGS AVAILABLE Confirmed by ELIAS WEBER, SADAF ([id number]) on 05/10/2024 11:18:39 AM [facility] MUSE 05/08/2024 5:03 PM MAILROOM ASSISTANT 05/10/2024 11:18 AM MAILROOM ASSISTANT Vanessa CANTU ECG ORDERABL ES [facility] MUSE from Last 3 Months Care Teams Pastry Assistant Relationship Specialty Start Date End Date Quan Arriaza MD [address] [place], [place] [id number] PCP - General Internal Medicine 05/02/24
== END 2024-06-18 09:25 | disposition home or self-care (01) ==
LOC: CHSIMG 09:26
PROVIDERS: PCP Internal Medicine; Visit Provider Internal Medicine
DX: R92.8 Other abnormal and inconclusive findings on diagnostic imaging of breast (principal)
CPT/HCPCS: 76641; 77061; 77065; G0279

== ENCOUNTER 2024-08-20 08:34 | Outpatient (CLI) | payer MEDICARE, SELFPAY ==
[2024-08-20 08:40] VITALS: BMI 21.5
[2024-08-20 08:48] VITALS: BP 159/74; PULSE 60; RESP 14; TEMP 36.4; O2SAT 97
[2024-08-20] MEDS: ZOLEDRONIC ACID 5 MG/100 ML 100 ML 400 MG IVPB (08:50)
--- OUTSIDE RECORDS SUMMARY | 2024-08-20 08:55 | XMS_ITS | Clinical Summary ---
Author Organization [facility] Address [address] [place] [address] Care Team Providers Care Director Trial Name Role Phone Quan Arriaza MD Primary Care Provider [phone] Source Comments [facility],non-owned Affiliates and Associated Physician Practices is amultiple site organization consisting of ambulatory clinics and hospital sitesin [place], [place], [place] and [place]. This disclosure is being madepursuant to the Care Everywhere program and may not contain all information available regarding this patient. Last updated 18.[facility] Allergies No known active allergies Medications * Be aware that medications may not be up to date on this document. Alwaysverify current medications with the patient. HYDROcodone-ac etaminophen ([place]) 5-325 MG tabletIndicati ons:Irregularl y irregular pulse rhythm,Injury of right wrist, initial encounter Take 1 (one) tablet by mouth every 6 hours as needed for Pain 12 tablet Active Additional Information Patient not taking.Reported on 07/03/2024 acetaminophen (Tylenol) 500 MG tablet Take 1 (one) tablet by mouth every 4 hours as needed for Fever or Pain Maximum allowable Acetaminophen amount = 4 Grams (4000 mg) / 24 hours. Active ibuprofen (Motrin) 200 MG tablet Take by mouth every 6 hours as needed for Pain Active lisinopril-hyd roCHLOROthiazi de (Prinzide; Zestoretic) 20-25 MG tablet Take 1 (one) tablet by mouth once daily Active amLODIPine (Norvasc) 2.5 MG tablet Take 1 (one) tablet by mouth at bedtime Active [place]-3 Fatty Acids (fish oil) 500 MG capsule Take by mouth 2 times daily Active docusate sodium (Colace) 100 MG capsuleIndicat ions:Constipat ion Take 1 (one) capsule by mouth 2 times daily as needed for Constipation Reasons: Constipation Active Additional Information Patient not taking.Reported on 07/03/2024 ibuprofen (Motrin) 400 MG tabletIndicati ons:Fever,Pain Take 1 (one) tablet by mouth every 6 hours as needed for Pain Reasons: Fever, Pain Active acetaminophen (TYLENOL) 500 MG tablet Take 2 (two) tablets by mouth every 8 hours as needed for Fever or Pain Maximum allowable Acetaminophen amount = 4 Grams (4000 mg) / 24 hours. Active HYDROcodone-ac etaminophen ([place]) 5-325 MG tabletIndicati ons:Pain Take 1 (one) tablet by mouth every 4 hours as needed for Pain Reasons: Pain 30 tablet Active Additional Information Patient not taking.Reported on 07/03/2024 sennosides (Senna Lax) 8.6 MG tablet Take 1 (one) tablet by mouth 2 times daily as needed for Constipation Take while using narcotic pain medications, then take as needed for constipation Active Additional Information Patient not taking.Reported on 07/03/2024 docusate sodium (Colace) 100 MG capsuleIndicat ions:Constipat ion,Take while using narcotic pain medications. Then take as needed for constipation. Take 1 (one) capsule by mouth once daily Reasons: Constipation, Take while using narcotic pain medications. Then take as needed for constipation. Active Additional Information Patient not taking.Reported on 07/03/2024 Encounters Date Type Department Care Team Description 07/03/2024 9:11 AM USED CAR SALES MANAGER - 07/03/2024 11:59 PM USED CAR SALES MANAGER Hospital Encounter [facility] DIAGNOSTIC RAD [address] [place] [address] Abel Sanches MD Discharge Disposition: Home or Self Care 07/03/2024 9:00 AM USED CAR SALES MANAGER Office Visit [facility] - Orthopedics [address] [place] [phone] Abel Sanches MD Closed fracture of right distal radius and ulna, with routine healing, subsequent encounter (Primary Dx) 07/03/2024 Travel 06/10/2024 Orders Only [facility] [address] [place] [phone] Abel Sanches MD Closed fracture of right distal radius and ulna, with routine healing, subsequent encounter 06/08/2024 Travel 06/05/2024 10:30 AM USED CAR SALES MANAGER - 06/05/2024 11:59 PM USED CAR SALES MANAGER Hospital Encounter [facility] OT [address] [place] [address] Abel Sanches MD Reale, Jennifer, OTR/L Discharge Disposition: Home or Self Care 06/05/2024 9:00 AM USED CAR SALES MANAGER Office Visit [facility] [address] [place] [phone] Abel Sanches MD Closed fracture of right distal radius and ulna, with routine healing, subsequent encounter (Primary Dx) 06/05/2024 8:51 AM USED CAR SALES MANAGER - 06/05/2024 10:29 AM USED CAR SALES MANAGER Hospital Encounter [facility] DIAGNOSTIC RAD [address] [facility] [place] [address] Abel Sanches MD Discharge Disposition: Home or Self Care 06/05/2024 Travel from Last 3 Months Social History Tobacco [...] Answer Date Recorded Patient Health Questionnaire-2 Score 2 06/26/2024 Comments Unknown Sex and Gender Information Value Date Recorded Sex Assigned at Not on file Legal Sex Female 9:14 AM CDT Gender Identity Not on file Sexual Orientation Not on file Last Filed Vital Signs Vital Sign Reading Time Taken Comments Blood Pressure 163/66 05/18/2024 1:52 PM USED CAR SALES MANAGER Pulse 63 05/18/2024 1:52 PM USED CAR SALES MANAGER Temperature 36.4 C (97.5 F) 05/18/2024 1:12 PM USED CAR SALES MANAGER Respiratory Rate 16 05/18/2024 1:52 PM USED CAR SALES MANAGER Oxygen Saturation 95% 05/18/2024 1:52 PM USED CAR SALES MANAGER Inhaled Oxygen Concentration - - Weight 63.5 kg (140 lb) 05/18/2024 9:15 AM USED CAR SALES MANAGER Height 167.6 cm (5' 6 ) 05/18/2024 9:15 AM USED CAR SALES MANAGER Body Mass Index 22.6 05/18/2024 9:15 AM USED CAR SALES MANAGER Plan of Treatment Health Maintenance Due Date Last Done Comments BONE DENSITY TESTING 1940 DTAP/TDAP/TD VACCINES (1 - Tdap) 11/28/1958 PNEUMOCOCCAL VACCINE 50+ (1 of 1 - PCV) 11/28/1989 ZOSTER VACCINE (1 of 2) 11/28/1989 Respiratory Syncytial Virus (RSV) Vaccine Pt: or over 60 yrs (1 - 1-dose 75+ series) 11/28/2014 MEDICARE AWV CALENDAR YEAR 2024 COVID-19 VACCINE ( season) 2024 01/23/2024, 02/20/2023, 01/25/2022, Additional history exists INFLUENZA VACCINE Completed [...] complete this topic MENINGOCOCCAL (Group B) VACCINE SHARED DECISION-MAKING Aged Out No longer eligible based on patient's age to complete this topic MENINGOCOCCAL GROUPS A/C/Y/W VACCINE Aged Out No longer eligible based on patient's age to complete this topic Medical Devices Implanted Type Area Hair Tinter Device Identifier Shelf Expiration Date Model / Serial / Lot Lifenethealth Modlable Emineralized Fibers Implanted:Qty: 1 on 05/18/2024 by Abel Sanches MD at [facility] Right: Wrist 08/23/2027 BL-1800-01 / ID: [id number] / 2.7 Cortx Screw Implanted:Qty: 1 on 05/18/2024 by Abel Sanches MD at [facility] Right: Wrist [id number] / / Distal Radius Plate Implanted:Qty: 1 on 05/18/2024 by Abel Sanches MD at [facility] Right: Wrist [id number] / / 2.4 Va Locking Screw Implanted:Qty: 1 on 05/18/2024 by Abel Sanches MD at [facility] Right: Wrist .210.120 / / 2.4 Locking Screw Implanted:Qty: 2 on 05/18/2024 by Abel Sanches MD at [facility] Right: Wrist .210.114 / / Screw 2.4mm 18mm T8 Slf-Tap Lck Va Strdr Implanted:Qty: 2 on 05/18/2024 by Abel Sanches MD at [facility] Right: Wrist Synthes Usa .210.118 / / 2.4 Va Locking Screw Implanted:Qty: 1 on 05/18/2024 by Abel Sanches MD at [facility] Right: Wrist .210.114 / / Explanted Type Area Hair Tinter Device Identifier Shelf Expiration Date Model / Serial / Lot Screw 2.4mm 14mm T8 Cortx Slf-Tap Strdr Explanted:Qty: 1 on 05/18/2024 at [facility] Right: Wrist Synthes Usa [id number] / / 2.4 Va Locking Screen Explanted:Qty: 1 on 05/18/2024 by Abel Sanches MD at [facility] Right: Wrist [id number] / / 2.7 Cortx Screw Explanted:Qty: 1 on 05/18/2024 by Abel Sanches MD at [facility] Right: Wrist .872 / / Procedures Procedure Name Priority Date/Time Associated Diagnosis Comments XR WRIST RIGHT 3VW OR MORE Routine 07/03/2024 9:16 AM USED CAR SALES MANAGER Closed fracture of right distal radius and ulna, with routine healing, subsequent encounter XR WRIST RIGHT 3VW OR MORE Routine 06/05/2024 9:14 AM USED CAR SALES MANAGER Traumatic closed displaced fracture of distal end of radius, right, initial encounter from Last 3 Months Results * XR Wrist Right 3Vw or More (07/03/2024 9:16 AM USED CAR SALES MANAGER) Only the most recent of2 resultswithin the time period is included. Anatomical Region Laterality Modality Wrist / Hand Computed Radiogr aphy 07/03/2024 1:24 PM USED CAR SALES MANAGER Impressions 07/03/2024 1:25 PM USED CAR SALES MANAGER IMPRESSION: Distal radial fracture with plate and screw fixation and distal ulnar fracture redemonstrated. > Interpreting Provider: Asa Christina MD on 07/03/2024 1:25 PM Narrative 07/03/2024 1:25 PM USED CAR SALES MANAGER PROCEDURE: XR WRIST RIGHT 3VW OR MORE DATE/TIME OF EXAM: 07/03/2024 9:16 AM CLINICAL INFORMATION: None relevant/not provided if blank. Indication: S52.501D: Closed fracture of right distal radius and ulna, with routine healing, subsequent encounter S52.601D: Closed fracture of right distal radius and ulna, with routine healing, subsequent encounter Additional History: COMPARISON: 06/05/2024. FINDINGS: Distal radial fracture with plate and screw fixation redemonstrated. The hardware is intact and the alignment is unchanged. A mildly displaced distal ulnar fracture is redemonstrated. Ulnar fracture angulation appears slightly increased on the PA view although differences in radiographic projection could account for the appearance. There is callus at the fracture sites, slightly progressed. There is no dislocation. The joint spaces are normal. There is mild soft tissue swelling. Procedure Note Asa Christina MD - 07/03/2024 PROCEDURE: XR WRIST RIGHT 3VW OR MORE DATE/TIME OF EXAM: 07/03/2024 9:16 AM CLINICAL INFORMATION: None relevant/not provided if blank. Indication: S52.501D: Closed fracture of right distal radius and ulna,with routine healing, subsequent encounter S52.601D: Closed fracture of right distal radius and ulna, with routine healing, subsequent encounter Additional History: COMPARISON: 06/05/2024. FINDINGS: Distal radial fracture with plate and screw fixation redemonstrated. The hardware is intact and the alignment is unchanged. A mildly displaced distal ulnar fracture is redemonstrated. Ulnar fracture angulationappears slightly increased on the PA view although differences in radiographic projection could account for the appearance. There is callus at the fracture sites, slightly progressed. There is no dislocation. The joint spaces are normal. There is mild soft tissue swelling. IMPRESSION: Distal radial fracture with plate and screw fixation anddistal ulnar fracture redemonstrated. > Interpreting Provider: Asa Christina MD on 07/03/2024 1:25 PM Abel Sanches MD DIAGNOSTIC IMAGING ORDERABLES F inal Result from Last 3 Months Insurance [employer] MANAGED MEDICARE ADV [facility] MANAGED MEDICARE ADV Care Teams Director Trial Relationship Specialty Start Date End Date Quan Arriaza MD [address] [id number] PCP - General Internal Medicine 05/02/24
--- OUTSIDE RECORDS SUMMARY | 2024-08-20 08:55 | XMS_ITS | Clinical Summary ---
Author Organization [facility] Address [facility] [place] [address] Care Team Providers Care Web Specialist Name Role Phone Unavailable Primary Care Provider [...] 11/28/1989 Dexa Scan (General) 11/28/2004 Pneumococcal Vaccine: 50+ Years (2 of 2 - PCV) 04/29/2014 04/29/2013, 04/29/2012 RSV Immunization or 60+ Years (1 - 1-dose 75+ series) 11/28/2014 COVID-19 Vaccine (2023-2 5 season) 2023 Meningococcal B Vaccine Aged Out No l onger eligible based on patient's age to complete this topic Meningococcal Vaccine Aged Out No sonny denis eligible based on patient's age to complete this topic RSV Immunizations Under 20 Months Aged Out No longer eligible b ased on patient's age to complete this topic
[2024-08-20 09:05] VITALS: BP 148/76; PULSE 68; RESP 14
--- NOTE | 2024-08-20 09:52 | PC.NURSE ---
Patient here for yearly IV Reclast infusion. Education given. No concerns voiced. Infusion administered. SEE MAR/patient care notes. Tolerated well.
== END 2024-08-20 08:35 | disposition home or self-care (01) ==
PROVIDERS: PCP Internal Medicine; Visit Provider Internal Medicine
DX: M81.0 Age-related osteoporosis without current pathological fracture (principal)
CPT/HCPCS: 96374; J3489

== ENCOUNTER 2024-10-19 08:03 | Outpatient (CLI) | payer MEDICARE, SELFPAY ==
[2024-10-19 08:22] LABS: Hematocrit 43.6 % (35.0-42.0); Hemoglobin 14.2 g/dL (11.7-13.8); Mean Corpuscular HGB Conc 32.6 g/dL (32-36); Mean Corpuscular Hemoglobin 31.3 pg (27.0-31.0); Mean Corpuscular Volume 96.2 fL (78.0-102.0); Mean Platelet Volume 9.9 fl (9.2-11.8); Platelet Count Result 198 K/mm3 (150-420); Red Blood Count 4.53 M/mm3 (4.20-5.40); White Blood Count 4.9 K/mm3 (4.8-10.8)
[2024-10-19 08:23] LABS: Add Urine Microscopic? YES; Appearance Urine Clear (Clear); Bilirubin Urine Negative (Negative); Blood Urine Negative (Negative); Color Urine Light Yellow (Yellow); Glucose Urine UA Negative (Negative); Ketones Urine Negative (Negative); Leukocyte Esterase Ur Trace (Negative); Nitrate Urine Negative (Negative); Protein Urine Negative (Negative); Urobilinogen Urine 0.2 mg/dL (0.2-1.0)
[2024-10-19 08:29] LABS: Bacteria Urine 3+ /hpf; RBC Urine None seen /hpf (0-2); Squamous Epithelial Cell Urine Few /hpf (Few); WBC Urine 0-5 /hpf (0-3)
[2024-10-19 08:48] LABS: Alanine Aminotransferase 14 U/L (6-35); Albumin Level 3.8 g/dL (3.5-5.1); Alkaline Phosphatase 58 U/L (38-126); Anion Gap 1 mmol/L (4-12); Aspartate Amino Transferase 25 U/L (14-36); Bilirubin,Total 0.8 mg/dL (0.2-1.3); Blood Urea Nitrogen 16 mg/dL (7-17); Calcium 8.7 mg/dL (8.4-10.2); Carbon Dioxide 33 mmol/L (22-30); Chloride 104 mmol/L (98-107); Cholesterol 209 mg/dL (0-200); Estimated Glomerular Filt Rate > 60; Glucose 90 mg/dL (65-110); HDL Direct 89 mg/dL; LDL Cholesterol Calculated 105 mg/dL (<130); Osmolality Calculated 287 mOsm/kg (285-295); Potassium 3.9 mmol/L (3.4-5.0); Sodium 138 mmol/L (137-145); Triglycerides 76 mg/dL (<150)
[2024-10-19 09:18] LABS: Thyroid Stimulating Hormone 0.085 uIU/mL (0.465-4.680)
[2024-10-21 14:34] LABS: Free T4 Free Thyroxine 1.32 ng/dL (0.78-2.19)
== END 2024-10-19 08:04 | disposition home or self-care (01) ==
LOC: CHSLAB 08:06
PROVIDERS: PCP Internal Medicine; Visit Provider Internal Medicine
DX: I10 Essential (primary) hypertension (principal); F32.A Depression, unspecified; E53.8 Deficiency of other specified B group vitamins
CPT/HCPCS: 36415; 80053; 80061; 81001; 83921; 84439; 84443; 84481; 85027

== ENCOUNTER 2024-10-29 08:17 | Outpatient (CLI) | payer MEDICARE, SELFPAY ==
--- NOTE | ~2024-10-29 | US_ITS ---
EXAMINATION: US thyroid DATE: 10/29/2024 08:35 INDICATION: Elevated free T3 level TECHNIQUE: Multiple ultrasound images of the thyroid were obtained. COMPARISON: None. FINDINGS: The right thyroid lobe measures 3.5 x 1.0 x 2.0 cm. The left thyroid lobe measures 3.3 x 1.7 x 2.0 c m. There are several anechoic cystic or nearly entirely cystic TI RADS 1 nodules in the left and rig ht thyroid lobes, the largest on the right measuring 4 mm and the largest on the left measuring 2.1 c m. There is also a 2.0 cm solid hypoechoic nodule with lobular margins and internal echogenic foci. ( TI-RADS 5, highly suspicious , FNA if >=1.0 cm, annual followup is >0.5 cm) at the left side of the t hyroid isthmus. IMPRESSION: 1. 2.0 cm TI RADS 5 nodule at the left side of the thyroid isthmus for which ultrasound-guided biopsy would be recommended. Reviewed, dictated and finalized at location A. IMPRESSION: 1. 2.0 cm TI RADS 5 nodule at the left side of the thyroid isthmus for which ul trasound-guided biopsy would be recommended.
--- OUTSIDE RECORDS SUMMARY | 2024-10-29 08:20 | XMS_ITS | Clinical Summary ---
Author Organization [facility] Address [facility] [place] [address] Care Team Providers Care Baggage Porter Head Name Role Phone Unavailable Primary Care Provider [...] 10:01 AM CDT Height 170.2 cm (5' 7) 09/11/2016 10:01 AM CDT Body Mass Index [...]
--- OUTSIDE RECORDS SUMMARY | 2024-10-29 08:20 | XMS_ITS | Clinical Summary ---
Author Organization [facility] Address [address] [place] [address] Care Team Providers Care Bull Driver Name Role Phone Quan Arriaza MD Primary Care Provider [phone] Source Comments [facility],non-owned Affiliates and Associated Physician Practices is amultiple site organization consisting of ambulatory clinics and hospital sitesin [place], [place], [place] and [place]. This disclosure is being madepursuant to the Care Everywhere program and may not contain all information available regarding this patient. Last updated 18.[facility] Allergies No known active allergies Medications * Be aware that medications may not be up to date on this document. Alwaysverify current medications with the patient. HYDROcodone-ac etaminophen ([place]) 5-325 MG tabletIndicati ons:Irregularl y irregular pulse [...] (one) tablet by mouth at bedtime Active [place]-3 Fatty Acids (fish oil) 500 MG capsule [...] mg) / 24 hours. Active HYDROcodone-ac etaminophen ([place]) 5-325 MG tabletIndicati ons:Pain Take 1 (one) [...] Additional Information Patient not taking.Reported on 07/03/2024 Social History Tobacco Use Types Packs/Day Years [...] Comments Blood Pressure 163/66 05/18/2024 1:52 PM TOOLSMITH Pulse 63 05/18/2024 1:52 PM TOOLSMITH Temperature 36.4 C (97.5 F) 05/18/2024 1:12 PM TOOLSMITH Respiratory Rate 16 05/18/2024 1:52 PM TOOLSMITH Oxygen Saturation 95% 05/18/2024 1:52 PM TOOLSMITH Inhaled Oxygen Concentration - - Weight 63.5 kg (140 lb) 05/18/2024 9:15 AM TOOLSMITH Height 167.6 cm (5' 6) 05/18/2024 9:15 AM TOOLSMITH Body Mass Index 22.6 05/18/2024 9:15 AM TOOLSMITH Plan of Treatment Health Maintenance Due Date [...] this topic Medical Devices Implanted Type Area Research Technologist Device Identifier Shelf Expiration Date Model / Serial / Lot Lifenethealth Modlable Emineralized Fibers Implanted:Qty: 1 on 05/18/2024 by Abel Sanches MD at [facility] Right: Wrist 08/23/2027 BL-1800-01 / ID: [id number] / 2.7 Cortx Screw Implanted:Qty: 1 on 05/18/2024 by Abel Sanches MD at [facility] Right: Wrist 202.874 / / Distal Radius Plate Implanted:Qty: 1 on 05/18/2024 by Abel Sanches MD at [facility] Right: Wrist 02.111.630 / / 2.4 Va Locking Screw Implanted:Qty: 1 on 05/18/2024 by Abel Sanches MD at [facility] Right: Wrist 02.210.120 / / 2.4 Locking Screw Implanted:Qty: 2 on 05/18/2024 by Abel Sanches MD at [facility] Right: Wrist .210.114 / / Screw 2.4mm 18mm T8 Slf-Tap Lck Va Strdr Implanted:Qty: 2 on 05/18/2024 by Abel Sanches MD at [facility] Right: Wrist Synthes Usa 02.210.118 / / 2.4 Va Locking Screw Implanted:Qty: 1 on 05/18/2024 by Abel Sanches MD at [facility] Right: Wrist 02.210.114 / / Explanted Type Area Research Technologist Device Identifier Shelf Expiration Date Model / Serial / Lot Screw 2.4mm 14mm T8 Cortx Slf-Tap Strdr Explanted:Qty: 1 on 05/18/2024 at [facility] Right: Wrist Synthes Usa [id number] / / 2.4 Va Locking Screen Explanted:Qty: 1 on 05/18/2024 by Abel Sanches MD at [facility] Right: Wrist 02.210.114 / / 2.7 Cortx Screw Explanted:Qty: 1 on 05/18/2024 by Abel Sanches MD at [facility] Right: Wrist 202.872 / / Insurance Care Teams Bull Driver Relationship Specialty Start Date End Date Quan Arriaza MD [address] [place] [address] PCP - General Internal Medicine 05/02/24
== END 2024-10-29 08:18 | disposition home or self-care (01) ==
LOC: CHSIMG 08:18
PROVIDERS: PCP Internal Medicine; Visit Provider Internal Medicine
DX: R94.6 Abnormal results of thyroid function studies (principal); E04.2 Nontoxic multinodular goiter
CPT/HCPCS: 76536

== ENCOUNTER 2024-12-17 08:54 | Outpatient (CLI) | payer MEDICARE, SELFPAY ==
--- NOTE | ~2024-12-17 | US_ITS ---
EXAMINATION TYPE: US breast LT limited COMPARISON: 06/18/2024 REASON FOR STUDY: CYST OF LEFT BREAST TECHNIQUE: Targeted sonographic evaluation of the left breast was performed. INTERPRETATION: There is an 8 mm simple cyst at the 11:00 position left breast, 5 cm from the nipple. At the 12:00 position left breast, 3 cm from the nipple, there are several adjacent simple cysts, largest measuring up to 10 mm in diameter. At the 3:00 position left breast, 8 cm the nipple, there is a 5 mm hypoechoic circumscribed wider than tall mass. There is a simple cyst at the 3:00 position left breast in the subareolar region. There is an additional 8 x 8 x 4 mm circumscribed hypoechoic solid mass, more than tall, and left subareolar region, with posterior through transmission. IMPRESSION: Simple left breast cysts and subcentimeter benign-appearing solid masses in the left breast, as detailed above, all similar to prior exam. BI-RADS CATEGORY: BI-RADS 2: Benign Reviewed, dictated and finalized at location .
--- OUTSIDE RECORDS SUMMARY | 2024-12-17 09:12 | XMS_ITS | Patient Health Record ---
Author Organization [facility] Address [address] [place], [place] [id number] Care Team Providers Care Slasher Name Role Phone SALLY JO Unavailable [phone] Quan Arriaza Unavailable Unavailable Reason For Referral No Information Plan Of Treatment No Information Insurance Providers Payer Name Payer Address Payer Phone Subscriber Number Group Number Insured Name Patient Relationship to Insured Coverage Start Date Coverage End Date Medicare Part B [place] [address] [place] [phone] [id number] KETTY SALES Self - patient is the insured [facility] Insurance [address] [address] [place] [address] [id number] KETTY SALES Self - patient is the insured
--- OUTSIDE RECORDS SUMMARY | 2024-12-17 09:12 | XMS_ITS | Clinical Summary ---
Author Organization [facility] Address [address] [place] [address] Care Team Providers Care Collect On Delivery Clerk Name Role Phone Quan Arriaza MD Primary Care Provider [phone] Source Comments [facility],non-owned Affiliates and Associated Physician Practices is amultiple site organization consisting of ambulatory clinics and hospital sitesin [place], [place] and [place]. This disclosure is being madepursuant to the Care Everywhere program and may not contain all information available regarding this patient. Last updated 18.[facility] Allergies No known active allergies Medications * Be aware that medications may not be up to date on this document. Alwaysverify current medications with the patient. HYDROcodone-ac etaminophen ([place]) 5-325 MG tabletIndicati ons:Irregularl y irregular pulse [...] (one) tablet by mouth at bedtime Active Ravena-3 Fatty Acids (fish oil) 500 MG capsule [...] mg) / 24 hours. Active HYDROcodone-ac etaminophen ([place]) 5-325 MG tabletIndicati ons:Pain Take 1 (one) [...] Comments Blood Pressure 163/66 05/18/2024 1:52 PM TYPESETTERS PRINTER Pulse 63 05/18/2024 1:52 PM TYPESETTERS PRINTER Temperature 36.4 C (97.5 F) 05/18/2024 1:12 PM TYPESETTERS PRINTER Respiratory Rate 16 05/18/2024 1:52 PM TYPESETTERS PRINTER Oxygen Saturation 95% 05/18/2024 1:52 PM TYPESETTERS PRINTER Inhaled Oxygen Concentration - - Weight 63.5 kg (140 lb) 05/18/2024 9:15 AM TYPESETTERS PRINTER Height 167.6 cm (5' 6) 05/18/2024 9:15 AM TYPESETTERS PRINTER Body Mass Index 22.6 05/18/2024 9:15 AM TYPESETTERS PRINTER Plan of Treatment Health Maintenance Due Date [...] 02/20/2023, 01/25/2022, Additional history exists INFLUENZA VACCINE (#1) 2024 , 01/28/2023, 01/26/2021 DEPRESSION SCREENING Completed 05/12/2024 HEPATITIS B [...] this topic Medical Devices Implanted Type Area Dye Penetrant Testing Technician Device Identifier Shelf Expiration Date Model / Serial / Lot Lifenethealth Modlable Emineralized Fibers Implanted:Qty: 1 on 05/18/2024 by Abel Sanches MD at [facility] Right: Wrist 08/23/2027 BL-1800-01 / ID: [id number] / 2.7 Cortx Screw Implanted:Qty: 1 on 05/18/2024 by Abel Sanches MD at [facility] Right: Wrist 202.874 / / Distal Radius Plate Implanted:Qty: 1 on 05/18/2024 by Abel Sanches MD at [facility] Right: Wrist .111.630 / / 2.4 Va Locking Screw Implanted:Qty: 1 on 05/18/2024 by Abel Sanches MD at [facility] Right: Wrist .210.120 / / 2.4 Locking Screw Implanted:Qty: 2 on 05/18/2024 by Abel Sanches MD at [facility] Right: Wrist .210.114 / / Screw 2.4mm 18mm T8 Slf-Tap Lck Va Strdr Implanted:Qty: 2 on 05/18/2024 by Abel Sanches MD at [facility] Right: Wrist Synthes judo .210.118 / / 2.4 Va Locking Screw Implanted:Qty: 1 on 05/18/2024 by Abel Sanches MD at [facility] Right: Wrist .210.114 / / Explanted Type Area Dye Penetrant Testing Technician Device Identifier Shelf Expiration Date Model / Serial / Lot Screw 2.4mm 14mm T8 Cortx Slf-Tap Strdr Explanted:Qty: 1 on 05/18/2024 at [facility] Right: Wrist Synthes judo 201.764 / / 2.4 Va Locking Screen Explanted:Qty: 1 on 05/18/2024 by Abel Sanches MD at [facility] Right: Wrist 02.210.114 / / 2.7 Cortx Screw Explanted:Qty: 1 on 05/18/2024 by Abel Sanches MD at [facility] Right: Wrist 202.872 / / Insurance Care Teams Collect On Delivery Clerk Relationship Specialty Start Date End Date Quan Arriaza MD [address] [place] [address] PCP - General Internal Medicine 05/02/24
== END 2024-12-17 08:55 | disposition home or self-care (01) ==
LOC: CHSIMG 08:56
PROVIDERS: PCP Internal Medicine; Visit Provider Nurse Practitioner Family
DX: N60.22 Fibroadenosis of left breast (principal)
CPT/HCPCS: 76642

== ENCOUNTER 2024-12-25 12:37 | Outpatient (CLI) | payer MEDICARE, SELFPAY ==
--- NOTE | ~2024-12-25 | US_ITS ---
EXAMINATION: US FNA w image guidance DATE: 12/25/2024 13:35 INDICATION: Thyroid nodules TECHNIQUE: A time-out was performed to verify the patient's name, date of , and procedure to be performed. The procedure and its benefits and risks were discussed with the patient. Risks specifically discussed included bleeding and infection. The patient understood the risks and agreed to proceed. The neck was prepped and draped in the usual sterile manner. 5 mL 1% lidocaine was used for local anesthesia. 4 passes were made with a 25G needle into the lesion. Appropriate needle location was documented with continuous sonographic guidance. A sterile bandage was applied. There were no immediate complications. FINDINGS: Grayscale ultrasound images demonstrate biopsy needles advanced into a 2.8 x 1.2 cm predominantly solid hypoechoic nodule with lobular margins and with scattered echogenic foci at the left side of the thyroid isthmus. IMPRESSION: 1. Successful ultrasound-guided fine needle aspiration of a 2.8 cm TI RADS 5 nodule at the thyroid isthmus. Reviewed, dictated and finalized at location A. IMPRESSION: 1. Successful ultrasound-guided fine needle aspiration of a 2.8 cm TI RADS 5 n odule at the thyroid isthmus.
--- OUTSIDE RECORDS SUMMARY | 2024-12-25 12:42 | XMS_ITS | Patient Health Record ---
Author Organization [facility] Address [address] [place], [place] [id number] Care Team Providers Care Client Technical Support Associate Name Role Phone SALLY JO Unavailable [phone] Quan Arriaza Unavailable Unavailable Reason For Referral No Information Plan Of Treatment No Information Insurance Providers Payer Name Payer Address Payer Phone Subscriber Number Group Number Insured Name Patient Relationship to Insured Coverage Start Date Coverage End Date Medicare Part [place] [address] [place] [address] [id number] KETTY SALES Self - patient is the insured [facility] Insurance [address] [address] [place] [address] [id number] KETTY SALES Self - patient is the insured
--- OUTSIDE RECORDS SUMMARY | 2024-12-25 12:43 | XMS_ITS | Clinical Summary ---
Author Organization [employer] [facility] Address [address] [place] [address] Care Team Providers Care Signal Inspector Name Role Phone Quan Arriaza MD Primary Care Provider [phone] Source Comments [facility],non-owned Affiliates and Associated Physician Practices is amultiple site organization consisting of ambulatory clinics and hospital sitesin [place], [place], [place] and [place]. This disclosure is being madepursuant to the Care Everywhere program and may not contain all information available regarding this patient. Last updated 18.[facility] Allergies No known active allergies Medications * Be aware that medications may not be up to date on this document. Alwaysverify current medications with the patient. HYDROcodone-ac etaminophen ([place]) 5-325 MG tabletIndicati ons:Irregularl y irregular pulse [...] (one) tablet by mouth at bedtime Active Prather-3 Fatty Acids (fish oil) 500 MG capsule [...] mg) / 24 hours. Active HYDROcodone-ac etaminophen ([place]) 5-325 MG tabletIndicati ons:Pain Take 1 (one) [...] Comments Blood Pressure 163/66 05/18/2024 1:52 PM RN QUALITY Pulse 63 05/18/2024 1:52 PM RN QUALITY Temperature 36.4 C (97.5 F) 05/18/2024 1:12 PM RN QUALITY Respiratory Rate 16 05/18/2024 1:52 PM RN QUALITY Oxygen Saturation 95% 05/18/2024 1:52 PM RN QUALITY Inhaled Oxygen Concentration - - Weight 63.5 kg (140 lb) 05/18/2024 9:15 AM RN QUALITY Height 167.6 cm (5' 6) 05/18/2024 9:15 AM RN QUALITY Body Mass Index 22.6 05/18/2024 9:15 AM RN QUALITY Plan of Treatment Health Maintenance Due Date [...] this topic Medical Devices Implanted Type Area Institution Librarian Device Identifier Shelf Expiration Date Model / Serial / Lot Lifenethealth Modlable Emineralized Fibers Implanted:Qty: 1 on 05/18/2024 by Abel Sanches MD at [facility] Right: Wrist 08/23/2027 BL-1800-01 / ID: [id number] / 2.7 Cortx Screw Implanted:Qty: 1 on 05/18/2024 by Abel Sanches MD at [facility] Right: Wrist 202.874 / / Distal Radius Plate Implanted:Qty: 1 on 05/18/2024 by Abel Sanches MD at [facility] Right: Wrist .111.630 / / 2.4 Va Locking Screw Implanted:Qty: 1 on 05/18/2024 by Abel Sanches MD at [facility] Right: Wrist .210.120 / / 2.4 Locking Screw Implanted:Qty: 2 on 05/18/2024 by Abel Sanches MD at [facility] Right: Wrist .210.114 / / Screw 2.4mm 18mm T8 Slf-Tap Lck Va Strdr Implanted:Qty: 2 on 05/18/2024 by Abel Sanches MD at [facility] Right: Wrist Synthes Access Mobile .210.118 / / 2.4 Va Locking Screw Implanted:Qty: 1 on 05/18/2024 by Abel Sanches MD at [facility] Right: Wrist .210.114 / / Explanted Type Area Institution Librarian Device Identifier Shelf Expiration Date Model / Serial / Lot Screw 2.4mm 14mm T8 Cortx Slf-Tap Strdr Explanted:Qty: 1 on 05/18/2024 at [facility] Right: Wrist Synthes Access Mobile 201.764 / / 2.4 Va Locking Screen Explanted:Qty: 1 on 05/18/2024 by Abel Sanches MD at [facility] Right: Wrist 02.210.114 / / 2.7 Cortx Screw Explanted:Qty: 1 on 05/18/2024 by Abel Sanches MD at [facility] Right: Wrist 202.872 / / Insurance Care Teams Signal Inspector Relationship Specialty Start Date End Date Quan Arriaza MD [address] [place] [address] PCP - General Internal Medicine 05/02/24
--- OUTSIDE RECORDS SUMMARY | 2024-12-25 12:43 | XMS_ITS | Clinical Summary ---
Author Organization [facility] Address [address] [place] [address] Care Team Providers Care Materials Handling Coordinator Name Role Phone Unavailable Primary Care Provider [...]
--- NOTE | 2024-12-25 13:31 | CY_PTH ---
PATIENT: Viola Bazan LOC: [facility] U#:[id number] AGE/SX: 84/F ROOM: RE12/25/[address]: Quan Arriaza MD : 1940 BED: DIS: 12/25/2024 SPEC #: [id number] RECD: 12/25/24 13:40 STATUS: ANTOINETTE SABILLON #: [id number] HUBERT: 12/25/24 13:[address]: Quan Arriaza DEPT: [facility] Cytology RECD BY: Otilia Oreilly Tissues: A - FNA Thyroid Procedures: Hematoxylin and Eosin Stain Cell Block Fine Needle Aspiration Evaluation Fine Needle Aspiration Pathologist
== END 2024-12-25 12:38 | disposition home or self-care (01) ==
PROVIDERS: PCP Internal Medicine; Visit Provider Internal Medicine
DX: E04.1 Nontoxic single thyroid nodule (principal)
CPT/HCPCS: 10005; 88172; 88173; 88305